=== PATIENT | female | born 1930 | race Caucasian/White ===

== ENCOUNTER 2016-09-29 21:52 | Inpatient (IN) ==
[2016-09-29] MEDS ORDERED: Ondansetron 4 MG/2 ML VIAL IVP ONE (21:58)
[2016-09-29] MEDS ORDERED: 0.9 % Sodium Chloride 1,000 ML IVC ONE ×2 (21:58→22:01)
--- NOTE | 2016-09-29 22:12 | Emergency Department Note ---
Disposition Clinical Impression: Elevated troponin, Gastroenteritis Disposition: Admitted As Inpatient Condition: Fair Time of Disposition: 01:48 Nausea/Vomiting/Diarrhea HPI - General Chief complaint: ED Nausea/Vomiting/Diarrhea Stated complaint: n/v/fever Time Seen by Provider: 09/29/16 21:58 Source: patient, EMS Mode of arrival: private vehicle Limitations: no limitations Nursing Notes Reviewed: Yes Vital Signs Reviewed: Yes - History of Present Illness HPI Narrative: A very pleasant 86-year-old female presents to the emergency department with complaint of nausea, vomiting, diarrhea, fever and generalized fatigue. Patient states that the symptoms have been progressively worsening over the last 24-36 hours. She denies any known sick contacts with similar symptoms. She denies any new foods or new medications. She does state that she has been having some fever and chills. Pt Subjective Complaint: nausea, vomiting, diarrhea, abdominal pain Onset (ago): day(s) (1) Description of emesis: food contents Description of Diarrhea: water Associated Abdominal Pain: Yes If pain, Location of pain: diffuse Severity: mild Consistency: intermittent Improves with: nothing Worsens with: nonthing Associated symptoms: Reports: fever/chills, loss of appetite, nausea/vomiting - Related Data Previous Rx's Medication Instructions Recorded Moxifloxacin HCl [Avelox] 400 mg PO DAILY #5 tablet 05/17/15 Allergies Allergy/AdvReac Type Severity Reaction Status Date / Time clindamycin Allergy Anaphylaxis Verified 05/06/15 12:15 Erythromycin Base Allergy Hives Verified 05/06/15 12:15 levofloxacin [From Levaquin] Allergy Anaphylaxis Verified 05/06/15 12:15 Methadone Allergy Anaphylaxis Verified 05/06/15 12:15 sulfamethoxazole Allergy Hives Verified 05/06/15 12:15 [From Bactrim] trimethoprim [From Bactrim] Allergy Hives Verified 05/06/15 12:15 adhesive tape AdvReac Blister Verified 05/06/15 12:15 azithromycin [From Zithromax] AdvReac Muscle Pain Verified 05/06/15 12:15 cephalexin [From Keflex] AdvReac Rash Verified 05/06/15 12:15 ciprofloxacin [From Cipro] AdvReac Hives Verified 05/06/15 12:15 latex AdvReac Blister Verified 05/06/15 12:15 nitrofurantoin AdvReac Vomiting Verified 05/06/15 12:15 [From Macrobid] All systems ED: reviewed and negative except as stated. Constitutional: Reports: fever, chills Cardiovascular: Denies: chest pain Respiratory: Denies: cough, dyspnea Gastrointestinal: Reports: abdominal pain, nausea, vomiting, diarrhea Musculoskeletal: Reports: myalgia. Denies: back pain, neck pain Neurological: Denies: headache Psychiatric: Denies: anxiety, depression, suicidal thoughts, homicidal thoughts Past Medical History - Past Medical History Attestation: Yes The following information was validated with the patient. Source: patient, nursing notes reviewed Medical history: Reports: arthritis, asthma, COPD, hypertension, osteoporosis Surgical history: Reports: hysterectomy Psychiatric history: Reports: anxiety, depression - Social History Smoking Status: Never smoker Smokeless Tobacco Status: No Alcohol use: Reports: none Drug use: Reports: none Physical Exam - General Limitations: no limitations General appearance: alert, in no apparent distress - Head Head exam: atraumatic, normocephalic, normal inspection - Eye Eye exam: Present: normal appearance, PERRL - Neck Neck exam: Present: normal inspection, full ROM, trachea midline - Chest Chest inspection: Present: normal inspection, symmetric chest wall rise - Respiratory Respiratory exam: Present: normal lung sounds bilaterally. Absent: respiratory distress - Cardiovascular Cardiovascular exam: Present: regular rate, normal rhythm, normal heart sounds - Abdominal Exam Abdominal exam: Present: soft, tenderness, normal bowel sounds. Absent: distention, guarding, rebound, rigidity, organomegaly, Garcia's sign, Rovsing's sign, tenderness at McBurney's Point Abdominal tenderness: Present: diffuse, mild - Extremities Exam Extremities exam: Present: normal inspection, full ROM. Absent: tenderness, pedal edema - Expanded Lower Extremity Exam Gait: observed and normal - Back Exam Back exam: Present: normal inspection - Neurological Exam Neurological exam: Present: alert, oriented X3 - Psychiatric Psychiatric exam: Present: normal affect, normal mood - Skin Skin exam: Present: warm, dry, intact, normal color Course - Reevaluation(s) Reevaluation #1: Patient asleep and resting comfortably on reexamination. Labs otherwise within normal limits except for an elevated troponin and mildly elevated creatinine. Kidney function is likely due to dehydration due to the patient's nausea, vomiting and diarrhea. There are no acute changes on the patient's EKG. Plan to discuss admission for serial troponins with the hospitalist. Patient denies any additional complaints or concerns at this time. Time: 01:47 Vital Signs Temperature 99.4 F 09/29/16 21:57 Pulse Rate 114 09/29/16 21:57 Respiratory Rate 16 09/29/16 21:57 Blood Pressure 201/99 09/29/16 21:57 O2 Sat by Pulse Oximetry 95 09/29/16 21:57 Temperature 98.2 F 09/30/16 02:18 Pulse Rate 101 09/30/16 00:54 Respiratory Rate 18 09/30/16 00:54 Blood Pressure 151/67 09/30/16 00:54 O2 Sat by Pulse Oximetry 95 09/30/16 00:54 Oxygen Delivery Oxygen Delivery Nasal Cannula Nausea/Vomiting/Diarrhea - Lab Data Lab results reviewed: Yes I reviewed the patient's lab results. Result diagrams: 09/29/16 22:10 09/29/16 22:10 Lab Results 09/29/16 09/29/16 09/29/16 Range/Units 22:10 22:10 22:10 WBC 12.1 H (4.3-11.1) K/mcL RBC 4.38 (3.82-4.97) M/mcL Hgb 11.8 (11.5-15.4) g/dL Hct 37.7 (35.3-44.9) % MCV 86.1 (83.0-100.0) fL MCH 26.9 L (28.0-33.3) pg MCHC 31.3 L (31.6-35.5) g/dL RDW 16.9 H (11.5-14.5) % Plt Count 190 (140-400) K/mcL MPV 10.9 (9.4-12.4) fL Immature Gran % 0.6 (0-4) % Seg Neutrophils % 91.5 % Lymphocytes % 5.5 % Monocytes % 1.7 % Eosinophils % 0.5 % Basophils % 0.2 % Neutrophils # 11.1 H (1.6-8.9) K/mcL Lymphocytes # 0.7 (0.6-4.6) K/mcL Monocytes # 0.2 (0.0-1.3) K/mcL Eosinophils # 0.1 (0.0-0.6) K/mcL Basophils # 0.0 (0.0-0.2) K/mcL Sodium 137 (136-145) mEq/L Potassium 3.7 (3.5-4.5) mEq/L Chloride 106 (98-109) mEq/L Carbon Dioxide 21 (19-29) mEq/L BUN 21 H (7-20) mg/dL Creatinine 1.10 (0.57-1.11) mg/dL Est GFR ( Amer) 57 L (> 60) Est GFR (Non-Af Amer) 47 L (> 60) BUN/Creatinine Ratio 19 (6-26) Glucose 117 H (70-99) mg/dL Calculated Osmolality 288 (280-300) Lactic Acid 1.8 (0.5-2.2) mmol/L Calcium 9.7 (8.6-10.8) mg/dL Total Bilirubin 1.3 H D (0.2-1.2) mg/dL AST 18 (5-34) Units/L ALT 15 (0-55) Units/L Alkaline Phosphatase 196 H (38-126) Units/L Troponin I (0-0.03) ng/mL Serum Total Protein 7.5 (6.0-8.3) g/dL Albumin 3.3 L (3.5-5.0) g/dL Globulin 4.2 H (2.4-3.5) g/dL Albumin/Globulin Ratio 0.8 L (1.1-2.2) Amylase 23 L (25-125) Units/L Lipase 14 (8-78) Units/L Urine Color (Yellow) Urine Clarity (Clear) Urine pH (5.0-8.0) pH Units Ur Specific [place] (1.010-1.025) Urine Protein (Neg-Trace) mg/dL Urine Glucose (UA) (Normal) mg/dL Urine Ketones (Negative) mg/dL Urine Blood (Negative) Urine Nitrite (Negative) Urine Bilirubin (Negative) Urine Urobilinogen (Normal) mg/dL Ur Leukocyte Esterase (Negative) Urine Microscopic RBC (0-3) per hpf Urine Microscopic WBC (0-3) per hpf Ur Squamous Epith Cells (None-Few) per lpf Urine Bacteria (None-Few) per hpf Hyaline Casts (None-Few) per lpf Urine Yeast Ur Culture Indicated? (NO) 09/29/16 09/29/16 Range/Units 22:10 22:30 WBC (4.3-11.1) K/mcL RBC (3.82-4.97) M/mcL Hgb (11.5-15.4) g/dL Hct (35.3-44.9) % MCV (83.0-100.0) fL MCH (28.0-33.3) pg MCHC (31.6-35.5) g/dL RDW (11.5-14.5) % Plt Count (140-400) K/mcL MPV (9.4-12.4) fL Immature Gran % (0-4) % Seg Neutrophils % % Lymphocytes % % Monocytes % % Eosinophils % % Basophils % % Neutrophils # (1.6-8.9) K/mcL Lymphocytes # (0.6-4.6) K/mcL Monocytes # (0.0-1.3) K/mcL Eosinophils # (0.0-0.6) K/mcL Basophils # (0.0-0.2) K/mcL Sodium (136-145) mEq/L Potassium (3.5-4.5) mEq/L Chloride (98-109) mEq/L Carbon Dioxide (19-29) mEq/L BUN (7-20) mg/dL Creatinine (0.57-1.11) mg/dL Est GFR ( Amer) (> 60) Est GFR (Non-Af Amer) (> 60) BUN/Creatinine Ratio (6-26) Glucose (70-99) mg/dL Calculated Osmolality (280-300) Lactic Acid (0.5-2.2) mmol/L Calcium (8.6-10.8) mg/dL Total Bilirubin (0.2-1.2) mg/dL AST (5-34) Units/L ALT (0-55) Units/L Alkaline Phosphatase (38-126) Units/L Troponin I 0.12 H* (0-0.03) ng/mL Serum Total Protein (6.0-8.3) g/dL Albumin (3.5-5.0) g/dL Globulin (2.4-3.5) g/dL Albumin/Globulin Ratio (1.1-2.2) Amylase (25-125) Units/L Lipase (8-78) Units/L Urine Color Yellow (Yellow) Urine Clarity Cloudy A (Clear) Urine pH 7.0 (5.0-8.0) pH Units Ur Specific [place] 1.015 (1.010-1.025) Urine Protein 30 H (Neg-Trace) mg/dL Urine Glucose (UA) Normal (Normal) mg/dL Urine Ketones Negative (Negative) mg/dL Urine Blood Moderate H (Negative) Urine Nitrite Positive A (Negative) Urine Bilirubin Negative (Negative) Urine Urobilinogen Normal (Normal) mg/dL Ur Leukocyte Esterase Large H (Negative) Urine Microscopic RBC 3-5 H (0-3) per hpf Urine Microscopic WBC TNTC H (0-3) per hpf Ur Squamous Epith Cells Moderate H (None-Few) per lpf Urine Bacteria Many H (None-Few) per hpf Hyaline Casts None Seen (None-Few) per lpf Urine Yeast Test Not Performed Ur Culture Indicated? YES A (NO) - Radiology Data Radiology results reviewed: Yes I reviewed the patient's radiology results. - EKG Data EKG attestation: Yes I reviewed and interpreted this EKG. EKG shows normal: sinus rhythm Rate: normal Rhythm: NSR [place]/QRS: normal Interpretation: no acute changes, normal EKG, unchanged when compared to prior tracing (date) Attestation Statement - Attestation Attestation: I, William Rocha MD, personally performed a history and physical exam of the patient and discussed their management with the midlevel provicer, [employer]. I reviewed the midlevel provider's note and agree with the documented findings, medical decision making, and plan of care. 86-year-old female who presents to the emergency department complaining of nausea and vomiting and diarrhea which started yesterday. She denies any abdominal pain. No fever. She states that initially the vomiting was food and then discharge to stomach fluid and bile. Today she states it has been dark brown but no gross loud in it. No melena or hematochezia. She denies any chest pain or shortness of breath. No palpitations. On examination patient is a well-developed well-nourished elderly female in no acute distress. She is alert and oriented 3. There is no cyanosis or diaphoresis. Breath sounds are clear and equal bilaterally. Heart regular rate and rhythm. Abdomen is soft and nontender with decreased bowel sounds. No tympany or distention. No guarding or rebound. Labs reviewed. Patient noted to have an elevated troponin of 0.12. Positive urinary tract infection. No acute changes on EKG. Chest x-ray showed a left lung base opacity suspicious for pneumonia or partial atelectasis. CT of the abdomen and pelvis showed some bibasilar atelectasis in the lungs. No acute abnormality in the abdomen. Diverticulosis with no evidence for diverticulitis. The hospitalist, Dr. Schreiber, was consulted and accepted admission of the patient.
[2016-09-29 22:25] LABS: Basophils % 0.2 %; Eosinophils # 0.1 K/mcL (0.0-0.6); Eosinophils % 0.5 %; Hematocrit 37.7 % (35.3-44.9); Hemoglobin 11.8 g/dL (11.5-15.4); Immature Granulocytes % 0.6 % (0-4); Lymphocytes # 0.7 K/mcL (0.6-4.6); Lymphocytes % 5.5 %; Mean Corpuscular HGB Conc 31.3 g/dL (31.6-35.5); Mean Corpuscular Hemoglobin 26.9 pg (28.0-33.3); Mean Corpuscular Volume 86.1 fL (83.0-100.0); Mean Platelet Volume 10.9 fL (9.4-12.4); Monocytes # 0.2 K/mcL (0.0-1.3); Monocytes % 1.7 %; Neutrophils # 11.1 K/mcL (1.6-8.9); Platelet Count 190 K/mcL (140-400); Red Blood Count 4.38 M/mcL (3.82-4.97); Red Cell Distribution Width 16.9 % (11.5-14.5); Segmented Neutrophils % 91.5 %
[2016-09-29 22:41] LABS: Albumin 3.3 g/dL (3.5-5.0); Albumin/Globulin Ratio 0.8 (1.1-2.2); Calcium 9.7 mg/dL (8.6-10.8); Globulin 4.2 g/dL (2.4-3.5); Potassium 3.7 mEq/L (3.5-4.5); Total Protein 7.5 g/dL (6.0-8.3)
[2016-09-29 22:42] LABS: Bilirubin,Total 1.3 mg/dL (0.2-1.2)
[2016-09-29 22:46] LABS: Bilirubin,Urine Negative (Negative); Blood,Urine Moderate (Negative); Clarity,Urine Cloudy (Clear); Color,Urine Yellow (Yellow); Glucose,Urine (UA) Normal (Normal); Ketones,Urine Negative (Negative); Leukocyte Esterase,Urine Large (Negative); Nitrite,Urine Positive (Negative); Protein,Urine 30 mg/dL (Neg-Trace); Specific Gravity,Urine 1.015 (1.010-1.025); Urobilinogen,Urine Normal (Normal)
[2016-09-29 22:49] LABS: Bacteria,Urine Many per hpf (None-Few); Hyaline Casts,Urine None Seen per lpf (None-Few); Squamous Epithelial Cell,Urine Moderate per lpf (None-Few); WBC,Urine TNTC per hpf (0-3)
[2016-09-30] MEDS ORDERED: *HR* Morphine 2 MG/ML SYRINGE IVP PRN (02:56)
[2016-09-30] MEDS ORDERED: Naloxone 0.4 MG/ML INJ IVP PRN (02:56)
[2016-09-30] MEDS ORDERED: Scopolamine Patch 1.5 MG PATCH.TD72 TD ONE (02:56)
--- NOTE | 2016-09-30 03:13 | Internal Med History&Physical ---
Date of Encounter: 09/30/16 Time of Encounter: 03:00 Assessment and Plan (1) Intractable nausea and vomiting Status: Resolved . Qualifiers: Vomiting type: cyclical vomiting Qualified Code(s): G43.A1 - Cyclical vomiting, intractable (2) Acute diarrhea Status: Acute . (3) Abdominal pain of multiple sites Status: Acute . (4) UTI (urinary tract infection) Status: Acute . Qualifiers: Urinary tract infection type: acute cystitis Hematuria presence: without hematuria Qualified Code(s): N30.00 - Acute cystitis without hematuria (5) Elevated troponin I measurement Status: Acute . (6) Acute gastroenteritis Status: Acute . (7) LLL pneumonia Status: Ruled-out . Qualifiers: Pneumonia type: due to unspecified organism Qualified Code(s): J18.1 - Lobar pneumonia, unspecified organism (8) SIRS due to infectious process with organ dysfunction Status: Acute . (9) Sepsis Status: Acute . Qualifiers: Sepsis type: Escherichia coli Qualified Code(s): A41.51 - Sepsis due to Escherichia coli [E. coli] (10) Accelerated hypertension Status: Acute . (11) Neutrophilic leukocytosis Status: Acute . (12) Demand ischemia of myocardium Status: Acute . (13) Ischemia due to increased oxygen demand Status: Acute . (14) Frail elderly Status: Chronic . (15) At risk for abnormal gastrointestinal motility Status: Chronic . (16) At risk for abuse of opiates Status: Chronic . (17) At risk for accident in home Status: Chronic . (18) At risk for acid-base imbalance Status: Acute . (19) At risk for activity intolerance Status: Chronic . (20) At risk for acute confusion Status: Acute . (21) At risk for acute ischemic cardiac event Status: Acute . (22) At risk for adverse drug event Status: Chronic . Internal Medicine - H&P: HPI Chief complaint: Abdominal pain nausea vomiting diarrhea fever Admitted From: Emergency Dept Plans for Post Hospital Care: Home History of present illness: Ms. Jones is a 86 year old female with medical history significant for COPD, YONNY, osteoarthritis, osteoporosis, gouty arthropathy, DDD/DJD of the spine , failed back surgery/post laminectomy syndrome, chronic pain syndrome/persona , hypertension, dyslipidemia, major depression and anxiety, GERD, hypothyroidism , peripheral neuropathy, chronic headaches/occipital neuralgia, fibromyalgia, irritable bowel syndrome with diarrhea, nonsmoker. Patient is admitted with complaints of abdominal pain associated with nausea vomiting and diarrhea. Initial screening studies reveal an CT abdomen and pelvis bibasilar atelectasis. Diverticulosis without acute evidence of diverticulitis. No acute intra-abdominal pathology. Chest x-ray revealed left lung base opacity suspicious for pneumonia versus atelectasis. She reported that her symptoms progressively worsened over 24-36 hour period. Acknowledged some feverishness and chills denied any sick contacts. Vital signs revealed a temperature of 99.4 with a pulse of 100-114 respiration 16-18 BP 151-201/67-99 O2 saturation 95 % on 2 L per nasal cannula. Systemic inflammatory response syndrome criteria and met at the time of admission. Sepsis criteria and met with source of infection likely pulmonary and urinary tract. Demand ischemia of myocardium with a troponin elevation of 0.12 noted. Analysis was strongly consistent with acute on chronic urinary tract infection with white blood cells too numerous to count and many bacteria. EKG normal sinus rhythm with no acute ischemic changes. Metabolic panel noted acute kidney injury stage III with modest metabolic electrolyte derangements. Patient is admitted at this time to undergo further evaluation and disposition. Past Med Surg Social Fam HX - Past Medical History Source: old records reviewed Medical history: arthritis (Osteoarthritis. DDD/DJD cervical spine. DDD/DJD lumbar spine. Postlaminectomy syndrome, lumbar. Lumbar spondylosis. Occipital neuralgia.), asthma, cancer (History of skin cancer. History of squamous cell carcinoma of the skin.), COPD (YONNY. Chronic sinusitis.), fibromyalgia, GERD, GI bleed (Irritable bowel syndrome with diarrhea. Diverticulosis coli.), hypertension, osteoporosis, renal disease (History of MRSA vaginitis. History of endometriosis.), thyroid disease (Hyperthyroidism.) , other (Hyperuricemia. Gout. Steroid responsive dermatitis. Tinea shon. Chronic pain syndrome. Peripheral neuropathy.) Psychiatric history: anxiety, depression, other - Past Surgical History Surgical History: cancer surgery (Parathyroid adenoma resection. Excision of squamous cell carcinoma of the skin.), hysterectomy, knee replacement (Left and right knee replacements.), orthopedic, other (C3 C4 C4 C5 C5 C6 nerve root radiofrequency ablation procedures.), sinus surgery, STEPH/BSO, other (Back surgery, call and lumbar. Colonoscopy-polypectomy. EGD. Implanted nerve stimulator trial.), arthroscopy (Left and right knee arthroscopic surgery.) - Social History Smoking Status: Never smoker Smokeless Tobacco Status: No Alcohol use: none Drug use: none Occupational status: retired Current living situation: Home, With Family Activity Level: Independent ambulation, Mostly sedentary Recent Out of Country Travel Within the Last 8 Weeks: No Exposure or Possible Exposure to Illness During Travel: No Internal Medicine - H&P: Meds Albuterol Sulfate [Ventolin Hfa] 2 puff IH Q4H PRN 09/30/16 [History] Allopurinol [Zyloprim] 300 mg PO DAILY 09/30/16 [History] Alprazolam [Xanax 0.25 MG Tablet] 0.25 mg PO HS 09/30/16 [History] Amitriptyline [Elavil] 25 mg PO HS 09/30/16 [History] Budesonide/Formoterol 160/4.5 [Symbicort 160/4.5] 2 puff IH BIDR 09/30/16 [ History] Carvedilol [Coreg] 3.125 mg PO BIDWM 09/30/16 [History] Cetirizine HCl [Zyrtec] 10 mg PO DAILY 09/30/16 [History] Escitalopram [Lexapro] 20 mg PO DAILY 09/30/16 [History] FluocinoNIDE 0.05% CRM [Lidex] 1 appl TP BID 09/30/16 [History] Fluticasone Propionate Nasal [Flonase] 100 mcg NS DAILY 09/30/16 [History] Gabapentin [Neurontin] 800 mg PO TID 09/30/16 [History] HYDROcodone/Acet 10/325 mg [[place] 10-325 mg] 1 tab PO BID PRN 09/30/16 [History] Lisinopril 30 mg PO DAILY 09/30/16 [History] Methimazole 30 mg PO DAILY 09/30/16 [History] Mv-Mn/FA/Vit K1/Lycop/Lut/Zeax [Ocuvite Eye + Multi Tablet] 1 tab PO DAILY 09/30 [History] Nystatin [Nystatin Suspension] 5 ml PO QID 09/30/16 [History] Omeprazole [PriLOSEC] 40 mg PO DAILY 09/30/16 [History] Amoxicillin/Clavulanate [Augmentin] 875 mg PO BIDWM #21 tablet 10/04/16 [Rx] Lactobacillus [Culturelle] 1 each PO BID cap.sprink 10/04/16 [Rx] Allergies adhesive tape Allergy (Verified 09/30/16 10:57) Hives cephalexin [From Keflex] Allergy (Verified 09/30/16 10:57) Hives ciprofloxacin [From Cipro] Allergy (Verified 09/30/16 10:57) Hives clindamycin Allergy (Verified 05/06/15 12:15) Anaphylaxis Erythromycin Base Allergy (Verified 05/06/15 12:15) Hives latex Allergy (Verified 09/30/16 10:57) Hives levofloxacin [From Levaquin] Allergy (Verified 05/06/15 12:15) Anaphylaxis Methadone Allergy (Verified 05/06/15 12:15) Anaphylaxis sulfamethoxazole [From Bactrim] Allergy (Verified 05/06/15 12:15) Hives trimethoprim [From Bactrim] Allergy (Verified 05/06/15 12:15) Hives azithromycin [From Zithromax] Adverse Reaction (Verified 09/30/16 10:57) Gastrointestinal Upset nitrofurantoin [From Macrobid] Adverse Reaction (Verified 05/06/15 12:15) Vomiting All Systems PM: A 10-system review of systems was performed and is negative for pertinent findings except as documented above in the HPI. - Constitutional Constitutional: as per HPI, anorexia, chills, fatigue, fever(s), malaise, weakness, other, no night sweats - EENT Eyes: as per HPI, no change in vision, no discharge, no pain, no photophobia Ears: as per HPI, no ear discharge, no ear pain, no tinnitus Nose, mouth and throat: as per HPI, nasal congestion, post-nasal drip, no dysphagia, no nasal discharge, no neck pain, no sore throat - Cardiovascular Cardiovascular ROS IM: as per HPI, no chest pain, no diaphoresis, no dyspnea, no lightheadedness, no palpitations, no syncope - Respiratory Respiratory: as per HPI, dyspnea, dyspnea on exertion, chest congestion, other, no cough, no wheezing, no excessive phlegm production - Gastrointestinal Gastrointestinal: as per HPI, abdominal pain, bloating, cramping, diarrhea, early satiety, loose stools, nausea, vomiting, no hematemesis, no hematochezia, no melena - Genitourinary Genitourinary: as per HPI, no change in urinary stream, no dysuria, no flank pain, no hematuria Menstruation: as per HPI, post hysterectomy - Musculoskeletal Musculoskeletal ROS IM: as per HPI, arthralgias, myalgias, no numbness, no tingling - Integumentary Integumentary IM: as per HPI, no rash, no unusual bruising - Neurological Neurological ROS: as per HPI, other, no confusion, no convulsions, no focal weakness, no numbness, no tingling, no tremor(s) - Psychiatric Psychiatric: as per HPI - Endocrine Endocrine IM: as per HPI, fatigue, other - Hematologic/Lymphatic Hematologic/Lymphatic: as per HPI, no easy bruising - Allergic/Immunologic Allergic/Immunologic: as per HPI - Constitutional Vitals: Temp Pulse Resp BP Pulse Ox 98.2 F 101 0 0/0 95 09/30/16 02:18 09/30/16 00:54 09/30/16 02:56 09/30/16 02:56 09/30/16 00:54 Vital Signs Temp Pulse Resp BP Pulse Ox 09/30/16 02:56 0 0/0 09/30/16 02:18 98.2 F 09/30/16 00:54 101 18 151/67 95 09/30/16 00:00 108 18 152/64 96 09/29/16 21:57 99.4 F 114 16 201/99 95 Intake and Output 09/29/16 09/29/16 09/30/16 15:59 23:59 07:59 Intake Total 1000 / 1000 Balance 1000 / 1000 Intake: IV Fluids 1000 / 1000 0.9 % Sodium Chloride 1, 1000 / 1000 000 ML @ 3750 mls/hr IVC .Q16M ONE Rx#:[id number] Other: Weight 70.307 kg Allergies Allergy/AdvReac Type Severity Reaction Status Date / Time clindamycin Allergy Anaphylaxis Verified 05/06/15 12:15 Erythromycin Base Allergy Hives Verified 05/06/15 12:15 levofloxacin [From Levaquin] Allergy Anaphylaxis Verified 05/06/15 12:15 Methadone Allergy Anaphylaxis Verified 05/06/15 12:15 sulfamethoxazole Allergy Hives Verified 05/06/15 12:15 [From Bactrim] trimethoprim [From Bactrim] Allergy Hives Verified 05/06/15 12:15 adhesive tape AdvReac Blister Verified 05/06/15 12:15 azithromycin [From Zithromax] AdvReac Muscle Pain Verified 05/06/15 12:15 cephalexin [From Keflex] AdvReac Rash Verified 05/06/15 12:15 ciprofloxacin [From Cipro] AdvReac Hives Verified 05/06/15 12:15 latex AdvReac Blister Verified 05/06/15 12:15 nitrofurantoin AdvReac Vomiting Verified 05/06/15 12:15 [From Macrobid] General appearance: Present: mild distress, A&O X 3, obese, answers questions appropriately - Head Head exam: Present: atraumatic, normocephalic - Eye Eye exam: Present: EOMI, PERRL, conjuntiva pink, sclera anicteric Pupils: Present: PERRL - ENT ENT exam: Present: mucous membranes moist, normal oropharynx - Neck Neck exam general surgery: Present: supple, trachea midline. Absent: lymphadenopathy - Respiratory Respiratory exam: Present: chest wall tenderness, decreased breath sounds, wheezes. Absent: accessory muscle use, CTAB, rales, rhonchi - Cardiovascular Cardiovascular exam: Present: distant heart sounds, RRR, +S1, +S2. Absent: diastolic murmur, gallop, rubs, systolic murmur - GI/Abdominal GI/Abdominal exam: Present: normal bowel sounds, soft, no peritoneal signs. Absent: distended, tenderness - Extremities Exam Extremities exam: Present: warm, radial pulses palpable and symetrical. Absent : calf tenderness, cyanotic, pedal edema - Neurological Exam Neurological exam: Present: alert, altered, CN II-XII intact, oriented X3, no focal deficits. Absent: pronater drift, facial droop, speech deficit - Psychiatric Psychiatric exam: Present: normal affect, normal mood - Skin Skin exam: Present: dry, intact Internal Med - H&P Results - Labs CBC & Chem 7: 10/03/16 12:42 10/03/16 12:42 Labs: Short CBC 09/29/16 Range/Units 22:10 WBC 12.1 H (4.3-11.1) K/mcL Hgb 11.8 (11.5-15.4) g/dL Hct 37.7 (35.3-44.9) % Plt Count 190 (140-400) K/mcL Neutrophils # 11.1 H (1.6-8.9) K/mcL BMP 09/29/16 Range/Units 22:10 Sodium 137 (136-145) mEq/L Potassium 3.7 (3.5-4.5) mEq/L Chloride 106 (98-109) mEq/L Carbon Dioxide 21 (19-29) mEq/L BUN 21 H (7-20) mg/dL Creatinine 1.10 (0.57-1.11) mg/dL Glucose 117 H (70-99) mg/dL Calcium 9.7 (8.6-10.8) mg/dL Cardiac Enzymes 09/29/16 Range/Units 22:10 Troponin I 0.12 H* (0-0.03) ng/mL Liver Function 09/29/16 Range/Units 22:10 Total Bilirubin 1.3 H D (0.2-1.2) mg/dL AST 18 (5-34) Units/L ALT 15 (0-55) Units/L Alkaline Phosphatase 196 H (38-126) Units/L Albumin 3.3 L (3.5-5.0) g/dL Urine 09/29/16 Range/Units 22:30 Urine Color Yellow (Yellow) Urine Clarity Cloudy A (Clear) Urine pH 7.0 (5.0-8.0) pH Units Ur Specific [place] 1.015 (1.010-1.025) Urine Protein 30 H (Neg-Trace) mg/dL Urine Glucose (UA) Normal (Normal) mg/dL Abnormal lab results WBC 12.1 K/mcL (4.3-11.1) H 09/29/16 22:10 MCH 26.9 pg (28.0-33.3) L 09/29/16 22:10 MCHC 31.3 g/dL (31.6-35.5) L 09/29/16 22:10 RDW 16.9 % (11.5-14.5) H 09/29/16 22:10 Neutrophils # 11.1 K/mcL (1.6-8.9) H 09/29/16 22:10 BUN 21 mg/dL (7-20) H 09/29/16 22:10 Est GFR ( Amer) 57 (> 60) L 09/29/16 22:10 Est GFR (Non-Af Amer) 47 (> 60) L 09/29/16 22:10 Glucose 117 mg/dL (70-99) H 09/29/16 22:10 Total Bilirubin 1.3 mg/dL (0.2-1.2) H D 09/29/16 22:10 Alkaline Phosphatase 196 Units/L (38-126) H 09/29/16 22:10 Troponin I 0.12 ng/mL (0-0.03) H* 09/29/16 22:10 Albumin 3.3 g/dL (3.5-5.0) L 09/29/16 22:10 Globulin 4.2 g/dL (2.4-3.5) H 09/29/16 22:10 Albumin/Globulin Ratio 0.8 (1.1-2.2) L 09/29/16 22:10 Amylase 23 Units/L (25-125) L 09/29/16 22:10 Urine Clarity Cloudy (Clear) A 09/29/16 22:30 Urine Protein 30 mg/dL (Neg-Trace) H 09/29/16 22:30 Urine Blood Moderate (Negative) H 09/29/16 22:30 Urine Nitrite Positive (Negative) A 09/29/16 22:30 Ur Leukocyte Esterase Large (Negative) H 09/29/16 22:30 Urine Microscopic RBC 3-5 per hpf (0-3) H 09/29/16 22:30 Urine Microscopic WBC TNTC per hpf (0-3) H 09/29/16 22:30 Ur Squamous Epith Cells Moderate per lpf (None-Few) H 09/29/16 22:30 Urine Bacteria Many per hpf (None-Few) H 09/29/16 22:30 Ur Culture Indicated? YES (NO) A 09/29/16 22:30 Laboratory Results WBC 12.1 K/mcL (4.3-11.1) H 09/29/16 22:10 RBC 4.38 M/mcL (3.82-4.97) 09/29/16 22:10 Hgb 11.8 g/dL (11.5-15.4) 09/29/16 22:10 Hct 37.7 % (35.3-44.9) 09/29/16 22:10 MCV 86.1 fL (83.0-100.0) 09/29/16 22:10 MCH 26.9 pg (28.0-33.3) L 09/29/16 22:10 MCHC 31.3 g/dL (31.6-35.5) L 09/29/16 22:10 RDW 16.9 % (11.5-14.5) H 09/29/16 22:10 Plt Count 190 K/mcL (140-400) 09/29/16 22:10 MPV 10.9 fL (9.4-12.4) 09/29/16 22:10 Immature Gran % 0.6 % (0-4) 09/29/16 22:10 Seg Neutrophils % 91.5 % 09/29/16 22:10 Lymphocytes % 5.5 % 09/29/16 22:10 Monocytes % 1.7 % 09/29/16 22:10 Eosinophils % 0.5 % 09/29/16 22:10 Basophils % 0.2 % 09/29/16 22:10 Neutrophils # 11.1 K/mcL (1.6-8.9) H 09/29/16 22:10 Lymphocytes # 0.7 K/mcL (0.6-4.6) 09/29/16 22:10 Monocytes # 0.2 K/mcL (0.0-1.3) 09/29/16 22:10 Eosinophils # 0.1 K/mcL (0.0-0.6) 09/29/16 22:10 Basophils # 0.0 K/mcL (0.0-0.2) 09/29/16 22:10 Sodium 137 mEq/L (136-145) 09/29/16 22:10 Potassium 3.7 mEq/L (3.5-4.5) 09/29/16 22:10 Chloride 106 mEq/L (98-109) 09/29/16 22:10 Carbon Dioxide 21 mEq/L (19-29) 09/29/16 22:10 BUN 21 mg/dL (7-20) H 09/29/16 22:10 Creatinine 1.10 mg/dL (0.57-1.11) 09/29/16 22:10 Est GFR ( Amer) 57 (> 60) L 09/29/16 22:10 Est GFR (Non-Af Amer) 47 (> 60) L 09/29/16 22:10 BUN/Creatinine Ratio 19 (6-26) 09/29/16 22:10 Glucose 117 mg/dL (70-99) H 09/29/16 22:10 Calculated Osmolality 288 (280-300) 09/29/16 22:10 Lactic Acid 1.8 mmol/L (0.5-2.2) 09/29/16 22:10 Calcium 9.7 mg/dL (8.6-10.8) 09/29/16 22:10 Total Bilirubin 1.3 mg/dL (0.2-1.2) H D 09/29/16 22:10 AST 18 Units/L (5-34) 09/29/16 22:10 ALT 15 Units/L (0-55) 09/29/16 22:10 Alkaline Phosphatase 196 Units/L (38-126) H 09/29/16 22:10 Troponin I 0.12 ng/mL (0-0.03) H* 09/29/16 22:10 Serum Total Protein 7.5 g/dL (6.0-8.3) 09/29/16 22:10 Albumin 3.3 g/dL (3.5-5.0) L 09/29/16 22:10 Globulin 4.2 g/dL (2.4-3.5) H 09/29/16 22:10 Albumin/Globulin Ratio 0.8 (1.1-2.2) L 09/29/16 22:10 Amylase 23 Units/L (25-125) L 09/29/16 22:10 Lipase 14 Units/L (8-78) 09/29/16 22:10 Urine Color Yellow (Yellow) 09/29/16 22:30 Urine Clarity Cloudy (Clear) A 09/29/16 22:30 Urine pH 7.0 pH Units (5.0-8.0) 09/29/16 22:30 Ur Specific [place] 1.015 (1.010-1.025) 09/29/16 22:30 Urine Protein 30 mg/dL (Neg-Trace) H 09/29/16 22:30 Urine Glucose (UA) Normal mg/dL (Normal) 09/29/16 22:30 Urine Ketones Negative mg/dL (Negative) 09/29/16 22:30 Urine Blood Moderate (Negative) H 09/29/16 22:30 Urine Nitrite Positive (Negative) A 09/29/16 22:30 Urine Bilirubin Negative (Negative) 09/29/16 22:30 Urine Urobilinogen Normal mg/dL (Normal) 09/29/16 22:30 Ur Leukocyte Esterase Large (Negative) H 09/29/16 22:30 Urine Microscopic RBC 3-5 per hpf (0-3) H 09/29/16 22:30 Urine Microscopic WBC TNTC per hpf (0-3) H 09/29/16 22:30 Ur Squamous Epith Cells Moderate per lpf (None-Few) H 09/29/16 22:30 Urine Bacteria Many per hpf (None-Few) H 09/29/16 22:30 Hyaline Casts None Seen per lpf (None-Few) 09/29/16 22:30 Urine Yeast Test Not Performed 09/29/16 22:30 Ur Culture Indicated? YES (NO) A 09/29/16 22:30 Impressions Abdomen/Pelvis CT 09/29/16 21:59 IMPRESSION: Diverticulosis without scan evidence for diverticulitis or other acute process. D/ / Serjio Salmeron MD / Serjio Salmeron MD Interpreting Provider: Serjio Salmeron MD Chest X-Ray 09/29/16 22:01 IMPRESSION: Left lung base opacity suspicious for mild pneumonia or partial atelectasis. D/ / 09/29/2016 23:44:53 Maximo Porter MD / rasheed Interpreting Provider: Maximo Porter MD - Attending Attestation My signature below is to certify that this patient is under my care and that I, or nurse practitioner, or a physician's personal assistant, or Resident Physician working with me, has had a [id number] encounter with this patient. Allergies clindamycin Allergy (Verified 05/06/15 12:15) Anaphylaxis Erythromycin Base Allergy (Verified 05/06/15 12:15) Hives levofloxacin [From Levaquin] Allergy (Verified 05/06/15 12:15) Anaphylaxis Methadone Allergy (Verified 05/06/15 12:15) Anaphylaxis sulfamethoxazole [From Bactrim] Allergy (Verified 05/06/15 12:15) Hives trimethoprim [From Bactrim] Allergy (Verified 05/06/15 12:15) Hives adhesive tape Adverse Reaction (Verified 05/06/15 12:15) Blister azithromycin [From Zithromax] Adverse Reaction (Verified 05/06/15 12:15) Muscle Pain cephalexin [From Keflex] Adverse Reaction (Verified 05/06/15 12:15) Rash ciprofloxacin [From Cipro] Adverse Reaction (Verified 05/06/15 12:15) Hives latex Adverse Reaction (Verified 05/06/15 12:15) Blister nitrofurantoin [From Macrobid] Adverse Reaction (Verified 05/06/15 12:15) Vomiting I & O 09/27/16 09/28/16 09/29/16 09/30/16 23:59 23:59 23:59 23:59 Intake Total 1000 / 1000 Balance 1000 / 1000 Weight 70.307 kg Intake: IV Fluids 1000 / 1000 0.9 % Sodium Chloride 1, 1000 / 1000 000 ML @ 3750 mls/hr IVC .Q16M ONE Rx#:[id number] Medications Acetaminophen (Tylenol) 650 mg PO Q6HR PRN PRN Reason: Mild Pain (1-3) Stop: 04/01/17 02:57 Docusate Sodium (Colace) 100 mg PO BID PRN PRN Reason: Constipation Stop: 04/01/17 02:57 Sodium Chloride (0.9 % Sodium Chloride) 1,000 mls @ 75 mls/hr IVC .[id number] ISIDRA Stop: 04/01/17 03:01 Piperacillin Sod/Tazobactam (Sod 3.375 gm/ Dextrose) 100 mls @ 25 mls/hr IVPB Q8HR ISIDRA PRN Reason: Protocol Stop: 04/01/17 03:09 Metoclopramide HCl (Reglan) 5 mg IVP Q6HR [facility] Stop: 10/01/16 00:01 Morphine Sulfate (Morphine Sulfate) 2 mg IVP Q4HR PRN PRN Reason: Severe Pain (7-10) Stop: 04/01/17 02:57 Naloxone HCl (Narcan) 0.4 mg IVP Q2MIN PRN PRN Reason: Opioid Reversal Stop: 04/01/17 02:57 Ondansetron HCl (Zofran) 4 mg IVP Q8HR PRN PRN Reason: Nausea And Vomiting Stop: 04/01/17 02:57 Oxycodone HCl (Roxicodone) 5 mg PO Q6HR PRN PRN Reason: Moderate Pain (4-6) Stop: 04/01/17 02:57 Pantoprazole Sodium (Protonix) 40 mg IVP DAILY ISIDRA Stop: 04/01/17 09:01 Discontinued Medications Acetaminophen (Tylenol) 1,000 mg PO ONCE ONE Stop: 09/29/16 22:02 Last Admin: 09/29/16 23:04 Dose: 1,000 mg Sodium Chloride (0.9 % Sodium Chloride) 1,000 mls @ 3,750 mls/hr IVC .Q16M ONE Stop: 09/29/16 22:13 Last Infusion: 09/30/16 00:56 Dose: 0 mls/hr Sodium Chloride (0.9 % Sodium Chloride) 1,000 mls @ 3,750 mls/hr IVC .Q16M ONE Stop: 09/29/16 22:16 Last Admin: 09/30/16 01:10 Dose: Piperacillin Sod/Tazobactam (Sod 3.375 gm/ Dextrose) 100 mls @ 25 mls/hr IVPB Q8HR ISIDRA PRN Reason: Protocol Stop: 04/01/17 08:01 Ondansetron HCl (Zofran) 4 mg IVP ONCE ONE Stop: 09/29/16 21:59 Last Admin: 09/29/16 23:04 Dose: 4 mg Scopolamine (Transderm-Scop) 1.5 mg TD ONCE ONE Stop: 09/30/16 02:57 Microbiology Results 09/29/16 22:10 Nasopharyngeal Influenza Types A,B Antigen (SHOBHA) - Final Nursing Notes 09/30/16 02:58 Nurse Note by Cecilia King pts [facility] phone number [phone] Initialized on 09/30/16 02:58 - END OF NOTE 09/30/16 02:17 Nurse Note by Cecilia King Pt stated to this RN that she is a DNR-CC Initialized on 09/30/16 02:17 - END OF NOTE Orders 09/29/16 21:58 Cardiac monitoring [RC] .ONCE Saline lock [RC] .ONCE Vital Signs Assessment [RC] PROTOCOL 0.9 % Sodium Chloride 1,000 ml IVC 3,750 mls/hr Ondansetron [Zofran] 4 mg IVP ONCE ONE 09/29/16 21:59 CT abd pelvis wo no iv no oral [CT] Stat Mode Of Transportation: Ambulatory Quantity: 1 Reason For Exam: abd pain, nausea, vomiting, diarrhea Exam Performed At:: [facility] Allergic to Contrast: No 09/29/16 22:01 12 lead ECG assessment [RC] NOW Obtain Old EKG [RC] .ONCE Portable CXR [XR chest 1V portable] [XR] Stat Mode Of Transportation: Ambulatory Reason For Exam: ZENY Order Doctor: Richard Whitney Exam Performed At:: [facility] 0.9 % Sodium Chloride 1,000 ml IVC 3,750 mls/hr Acetaminophen [Tylenol] 1,000 mg PO ONCE ONE ECG 12 lead ECG [ECG] Stat Mode Of Transportation: Ambulatory Reason For Exam: NVD Exam Performed At:: [facility] 09/29/16 22:10 Amylase Stat Comment: Specimen: Send someone from the department to collect Complete Blood Count [HEME] Stat Comment: Specimen: Send someone from the department to collect Comprehensive Metabolic Panel Stat Culture,Blood [BC] Stat Comment: SHOBHA Source: Peripheral Venipuncture Quantity: 1 Specimen: Send someone from the department to collect Specimen Description: Influenza A/B Antigen [VIR] Stat Comment: SHOBHA Source: Nasopharyngeal Specimen: Send someone from the department to collect Specimen Description: Lactic Acid ([facility] Only) Stat Comment: Specimen: Send someone from the department to collect Lipase Stat Troponin I Stat Comment: Specimen: Send someone from the department to collect 09/29/16 22:30 Culture,Urine [RM] Stat SHOBHA [place] [facility] Description: Urinalysis Reflex Cult & Micro [URIN] Stat Comment: Specimen: Has been collected 09/29/16 22:36 Culture,Blood,Additional [BC] Stat Comment: SHOBHA Source: Peripheral Venipuncture Quantity: 2 Specimen: Send someone from the department to collect Specimen Description: 09/29/16 23:39 12 lead ECG assessment [RC] NOW ECG 12 lead ECG [ECG] Stat Mode Of Transportation: Ambulatory Reason For Exam: repeat Exam Performed At:: [facility] 09/30/16 01:[address] Stat Comment: Reason for Visit: elevated troponin, gastroenteritis 09/30/16 02:56 Apply anti-embolic stockings [RC] .NOW Incentive Spirometry [RC] .6 TIMES PER HR WHILE AWAKE Peripheral IV [RC] CONT Placement to Observation Routine Physician Instructions: Reason for Visit: Nausea vomiting abdominal pain and diarrhea Is VTE Prophylaxis Indicated?: Yes Vital Signs Assessment [RC] Q4H Acetaminophen [Tylenol] 650 mg PO Q6HR PRN Docusate [Colace] 100 mg PO BID PRN Morphine [Morphine Sulfate] 2 mg IVP Q4HR PRN Naloxone [Narcan] 0.4 mg IVP Q2MIN PRN Ondansetron [Zofran] 4 mg IVP Q8HR PRN OxyCODONE Immed Rel [Roxicodone] 5 mg PO Q6HR PRN Scopolamine Patch [Transderm-Scop] 1.5 mg TD ONCE ONE 09/30/16 02:57 Bed rest [RC] .CONT Physician Instructions: Bed rest w/bedside commode [RC] .PRN Cardiac Monitoring Med/Surg [RC] .CONT Telemetry Reason: ACS/CP Continuous pulse oximetry [RC] CONT Comment: Measure intake and output [RC] QSHIFT Measure weight [RC] DAILY RT has an order or consult [RC] NOW 09/30/16 03:00 Troponin I Q6H Comment: Specimen: Send someone from the department to collect 0.9 % Sodium Chloride 1,000 ml IVC 75 mls/hr Up with Assist Daily Comment: Physician Instructions: 09/30/16 03:08 Piperacillin/Tazobactam [Zosyn] 3.375 gm D5% in Water (Mini-Bag+) [Dextrose 5 % (Minibag+) 100 ML] 100 ml IVPB Q8HR 09/30/16 04:00 Ammonia AM 0400 Comment: Specimen: Send someone from the department to collect C-Reactive Protein AM 0400 Comment: Specimen: Send someone from the department to collect GI Panel,Stool [MOLMIC] Routine Specimen: Send someone from the department to collect Hgb A1C AM 0400 Comment: Specimen: Send someone from the department to collect Lactic Acid ([facility] Only) AM 0400 Comment: Specimen: Send someone from the department to collect Lipid Panel AM 0400 Comment: Specimen: Send someone from the department to collect Magnesium AM 0400 Comment: Specimen: Send someone from the department to collect Phosphorous AM 0400 Comment: Specimen: Send someone from the department to collect Respiratory Infection Panel [MOLMIC] AM 0400 Specimen: Send someone from the department to collect Thyroid Stimulating Hormone AM 0400 Comment: Specimen: Send someone from the department to collect Viral Culture,Respiratory [RM] AM 0400 Comment: SHOBHA Source: Nasopharyngeal Specimen: Send someone from the department to collect Specimen Description: 09/30/16 06:00 Metoclopramide [Reglan] 5 mg IVP Q6HR 09/30/16 08:00 Piperacillin/Tazobactam [Zosyn] 3.375 gm D5% in Water (Mini-Bag+) [Dextrose 5 % (Minibag+) 100 ML] 100 ml IVPB Q8HR 09/30/16 09:00 Troponin I Q6H Comment: Specimen: Send someone from the department to collect Pantoprazole [Protonix] 40 mg IVP DAILY 09/30/16 15:00 Troponin I Q6H Comment: Specimen: Send someone from the department to collect 09/30/16 Breakfast Clear Liquid Diet Diet Modifications: 10/01/16 03:00 Up with Assist Daily Comment: Physician Instructions: 10/02/16 03:00 Up with Assist Daily Comment: Physician Instructions: Patient Problems (Last Updated 09/30/16 @ 03:13 by Jamil Schreiber MD) Elevated troponin (Acute) Gastroenteritis (Acute) Intractable nausea and vomiting (Acute) Acute diarrhea (Acute) Abdominal pain of multiple sites (Acute) UTI (urinary tract infection) (Acute) Elevated troponin I measurement (Acute) Acute gastroenteritis (Acute) LLL pneumonia (Acute) SIRS due to infectious process with organ dysfunction (Acute) Sepsis (Acute) Accelerated hypertension (Acute) Neutrophilic leukocytosis (Acute) Vital Signs Temp Pulse Resp BP Pulse Ox 09/30/16 02:56 0 0/0 09/30/16 02:18 98.2 F 09/30/16 00:54 101 18 151/67 95 09/30/16 00:00 108 18 152/64 96 09/29/16 21:57 99.4 F 114 16 201/99 95 Laboratory Results 09/29/16 09/29/16 09/29/16 Range/Units 22:10 22:10 22:10 WBC 12.1 H (4.3-11.1) K/mcL RBC 4.38 (3.82-4.97) M/mcL Hgb 11.8 (11.5-15.4) g/dL Hct 37.7 (35.3-44.9) % MCV 86.1 (83.0-100.0) fL MCH 26.9 L (28.0-33.3) pg MCHC 31.3 L (31.6-35.5) g/dL RDW 16.9 H (11.5-14.5) % Plt Count 190 (140-400) K/mcL MPV 10.9 (9.4-12.4) fL Immature Gran % 0.6 (0-4) % Seg Neutrophils % 91.5 % Lymphocytes % 5.5 % Monocytes % 1.7 % Eosinophils % 0.5 % Basophils % 0.2 % Neutrophils # 11.1 H (1.6-8.9) K/mcL Lymphocytes # 0.7 (0.6-4.6) K/mcL Monocytes # 0.2 (0.0-1.3) K/mcL Eosinophils # 0.1 (0.0-0.6) K/mcL Basophils # 0.0 (0.0-0.2) K/mcL Sodium 137 (136-145) mEq/L Potassium 3.7 (3.5-4.5) mEq/L Chloride 106 (98-109) mEq/L Carbon Dioxide 21 (19-29) mEq/L BUN 21 H (7-20) mg/dL Creatinine 1.10 (0.57-1.11) mg/dL Est GFR ( Amer) 57 L (> 60) Est GFR (Non-Af Amer) 47 L (> 60) BUN/Creatinine Ratio 19 (6-26) Glucose 117 H (70-99) mg/dL Calculated Osmolality 288 (280-300) Lactic Acid 1.8 (0.5-2.2) mmol/L Calcium 9.7 (8.6-10.8) mg/dL Total Bilirubin 1.3 H D (0.2-1.2) mg/dL AST 18 (5-34) Units/L ALT 15 (0-55) Units/L Alkaline Phosphatase 196 H (38-126) Units/L Troponin I (0-0.03) ng/mL Serum Total Protein 7.5 (6.0-8.3) g/dL Albumin 3.3 L (3.5-5.0) g/dL Globulin 4.2 H (2.4-3.5) g/dL Albumin/Globulin Ratio 0.8 L (1.1-2.2) Amylase 23 L (25-125) Units/L Lipase 14 (8-78) Units/L Urine Color (Yellow) Urine Clarity (Clear) Urine pH (5.0-8.0) pH Units Ur Specific [place] (1.010-1.025) Urine Protein (Neg-Trace) mg/dL Urine Glucose (UA) (Normal) mg/dL Urine Ketones (Negative) mg/dL Urine Blood (Negative) Urine Nitrite (Negative) Urine Bilirubin (Negative) Urine Urobilinogen (Normal) mg/dL Ur Leukocyte Esterase (Negative) Urine Microscopic RBC (0-3) per hpf Urine Microscopic WBC (0-3) per hpf Ur Squamous Epith Cells (None-Few) per lpf Urine Bacteria (None-Few) per hpf Hyaline Casts (None-Few) per lpf Urine Yeast Ur Culture Indicated? (NO) 09/29/16 09/29/16 Range/Units 22:10 22:30 WBC (4.3-11.1) K/mcL RBC (3.82-4.97) M/mcL Hgb (11.5-15.4) g/dL Hct (35.3-44.9) % MCV (83.0-100.0) fL MCH (28.0-33.3) pg MCHC (31.6-35.5) g/dL RDW (11.5-14.5) % Plt Count (140-400) K/mcL MPV (9.4-12.4) fL Immature Gran % (0-4) % Seg Neutrophils % % Lymphocytes % % Monocytes % % Eosinophils % % Basophils % % Neutrophils # (1.6-8.9) K/mcL Lymphocytes # (0.6-4.6) K/mcL Monocytes # (0.0-1.3) K/mcL Eosinophils # (0.0-0.6) K/mcL Basophils # (0.0-0.2) K/mcL Sodium (136-145) mEq/L Potassium (3.5-4.5) mEq/L Chloride (98-109) mEq/L Carbon Dioxide (19-29) mEq/L BUN (7-20) mg/dL Creatinine (0.57-1.11) mg/dL Est GFR ( Amer) (> 60) Est GFR (Non-Af Amer) (> 60) BUN/Creatinine Ratio (6-26) Glucose (70-99) mg/dL Calculated Osmolality (280-300) Lactic Acid (0.5-2.2) mmol/L Calcium (8.6-10.8) mg/dL Total Bilirubin (0.2-1.2) mg/dL AST (5-34) Units/L ALT (0-55) Units/L Alkaline Phosphatase (38-126) Units/L Troponin I 0.12 H* (0-0.03) ng/mL Serum Total Protein (6.0-8.3) g/dL Albumin (3.5-5.0) g/dL Globulin (2.4-3.5) g/dL Albumin/Globulin Ratio (1.1-2.2) Amylase (25-125) Units/L Lipase (8-78) Units/L Urine Color Yellow (Yellow) Urine Clarity Cloudy A (Clear) Urine pH 7.0 (5.0-8.0) pH Units Ur Specific [place] 1.015 (1.010-1.025) Urine Protein 30 H (Neg-Trace) mg/dL Urine Glucose (UA) Normal (Normal) mg/dL Urine Ketones Negative (Negative) mg/dL Urine Blood Moderate H (Negative) Urine Nitrite Positive A (Negative) Urine Bilirubin Negative (Negative) Urine Urobilinogen Normal (Normal) mg/dL Ur Leukocyte Esterase Large H (Negative) Urine Microscopic RBC 3-5 H (0-3) per hpf Urine Microscopic WBC TNTC H (0-3) per hpf Ur Squamous Epith Cells Moderate H (None-Few) per lpf Urine Bacteria Many H (None-Few) per hpf Hyaline Casts None Seen (None-Few) per lpf Urine Yeast Test Not Performed Ur Culture Indicated? YES A (NO) Assessments/Treatments 12 lead ECG assessment Start: 09/29/16 22: 01 Freq: NOW Status: Complete Document 09/29/16 22:17 [facility] (Rec: 09/29/16 22:17 [facility] [id number]) EKG Time EKG Completed 22:25 EKG performed by Thea EKG shown to and signed by Ronn 12 lead ECG assessment Start: 09/29/16 23: 39 Freq: NOW Status: Complete Document 09/29/16 23:40 CBJ (Rec: 09/29/16 23:40 CB [id number]) EKG Time EKG Completed 23:40 EKG performed by Thea EKG shown to and signed by Chelo Cardiac monitoring Start: 09/29/16 21: 54 Freq: Status: Complete Document 09/29/16 21:57 NNN (Rec: 09/29/16 22:09 NNN [id number]) Cardiac Monitoring Heart Rate 114 Monitoring Method Telemetry Rhythm Sinus Tachycardia Monitor Number [id number] Strip placed in Chart No Monitor History Reviewed Yes Memory Cleared Yes Collect Specimen: [id number] Start: 09/29/16 22: 17 Freq: ONCE Status: Complete Document 09/29/16 22:17 CB (Rec: 09/29/16 22:17 [id number] Collect Specimen: [id number] Start: 09/29/16 22: 17 Freq: ONCE Status: Complete Document 09/29/16 22:17 CB (Rec: 09/29/16 22:17 CB [id number]) Critical Value Reporting Start: 09/29/16 22: 50 Freq: Status: Complete Document 09/29/16 22:50 CB (Rec: 09/29/16 22:50 CB [id number]) Critical Values Reporting Test(s) and Results trop 0.12 Time Results Received 22:49 Provider Notified Yes Time Provider Contacted 22:49 Provider Name brenda whitney Time Provider Responded 22:49 Number of Attempts to Reach Provider 1 New Orders Received Yes ED Discharge Assessment Start: 09/29/16 21: 54 Freq: Status: Complete Document 09/30/16 02:56 CBJ (Rec: 09/30/16 02:56 CB [id number]) ED Discharge Assessment ED Discharge Disposition Admitted ED Condition on Discharge Fair Med Rec/Patient Pharmacy Completed? No Admitted to 2A Bed assigned 14 Transported by semiconductor lab technician Transported with IV pulse oximetry Report given to Nurse Care transferred to (name/credentials) Theresa RN Information relayed patient's care treatments medications given condition recent/anticipated changes Clinical Documentation Summary Provided Yes Pain Scale 0 Pain Scale Used Standard (1-10) Blood Pressure 0/0 Heart rate 0 Respiratory Rate 0 Oxygen Saturation 0 Critical Care Minutes 0 ED Nausea/Vomiting/Diarrhea Assessment Start: 09/29/16 21: 54 Freq: Status: Complete Document 09/29/16 21:57 NNN (Rec: 09/29/16 22:09 [id number]) Nausea/Vomiting/Diarrhea Symptoms/Complaint Nausea Vomiting Diarrhea Onset 1 day Associated Abdominal Pain Yes Quality Cramping Consistency Constant Context Unknown Emesis Description Undigested Food Improves With Nothing Worsens With Nothing Associated Symptoms Fever/Chills Level Of Consciousness Awake Alert Appropriate Follows Commands Patient Orientation Person Place Time Respiratory Depth Normal Respiratory Effort Normal for Patient Non-Labored Respiratory Pattern Regular abd Pain Description Cramping Intensity 4 Scale Used Numeric (1 - 10) Abdomen Description Flat Soft Tender Saline lock insertion/management Start: 09/29/16 21: 54 Freq: Status: Active Document 09/29/16 22:09 NNN (Rec: 09/29/16 22:10 [id number]) IV Insertion/Site Assessment IV Attempt 1 Successful Successful Blood drawn and sent to Lab Yes Right Antecubital IV Established BOWSTRING MAKER No Date of Insertion 09/29/16 Time of Insertion 22:09 Reason for IV Insertion Provide Access for IV Medication(s) IV Catheter Type Peripheral IV Gauge (gauge) 20 Site Observation Patent Dressing Applied Transparent Dressing Patient Tolerance Tolerated Well Saline lock insertion/management Start: 09/29/16 21: 58 Freq: .ONCE Status: Complete Document 09/29/16 22:17 [facility] (Rec: 09/29/16 22:17 [id number] IV Insertion/Site Assessment IV Attempt 1 Successful Successful Blood drawn and sent to Lab Yes Comment Camila STORY Right Antecubital IV Established BOWSTRING MAKER No Date of Insertion 09/29/16 Time of Insertion 22:17 Reason for IV Insertion Provide Access for IV Medication(s) Provide Access for Emergency IV Catheter Type Peripheral IV Gauge (gauge) 20 Site Observation Patent Dressing Applied Window Dressing Patient Tolerance Tolerated Well Triage Start: 09/29/16 21: 54 Freq: Status: Complete Document 09/29/16 21:57 NNN (Rec: 09/29/16 22:09 [id number] Triage Chief Complaint triage ED Nausea/Vomiting/Diarrhea Patient Stated Complaint n/v/fever BYRON 3 Description of Symptoms pt states that since last night she has had abd pain n/v /diarrhea and fevers. General Appearance alert in no apparent distress Work Related Injury? No Mode of arrival EMS Arrival via EMS [facility] Source patient EMS Limitations no limitations Ebola Risk: Travel/Contact With Anyone No From Affected Area/s Has Patient Experienced Ebola Symptoms No Temperature (97.6 F-99.6 F) 99.4 F Temperature Source Oral Pulse Rate 114 Respiratory Rate 16 Blood Pressure 201/99 O2 Sat by Pulse Oximetry (95-100) 95 Oxygen Delivery Room Air Height 1.6 m Weight 70.307 kg Weight Measurement Method Stated by Patient Pain Scale 5 Pain Scale Used Standard (1-10) Medical history arthritis asthma COPD hypertension osteoporosis Additional surgical history PMH knee replacements, 4 back surgeries Psychiatric history anxiety depression Smoking Status Never smoker Smokeless Tobacco Status No Alcohol Use none Drug Use none Patient resides with/at Alone Safety Concerns Feels Safe At This Time Do you currently feel hopless, have No thoughts of self harm, or thoughts of harming others History of fall in last 14 days? No Influenza vaccine up to date Yes Pneumonia vaccine up to date Yes Tetanus UTD unsure Vital Signs Assessment Start: 09/29/16 21: 58 Freq: PROTOCOL Status: Complete Document 09/30/16 00:00 [facility] (Rec: 09/30/16 00:54 [facility] [id number]) ED Vital Signs Pain Reported No Pain Reported Pain Scale 0 Pain Scale Used Standard (1-10) Blood Pressure 152/64 Pulse Rate 108 Respiratory Rate 18 Pulse Oximetry (95-100) 96 Oxygen Delivery Nasal Cannula Oxygen Flow Rate (LPM) 2 Document 09/30/16 00:54 [facility] (Rec: 09/30/16 00:55 [facility] [id number]) ED Vital Signs Pain Reported No Pain Reported Pain Scale 0 Pain Scale Used Standard (1-10) Blood Pressure 151/67 Pulse Rate 101 Respiratory Rate 18 Pulse Oximetry (95-100) 95 Oxygen Delivery Nasal Cannula Oxygen Flow Rate (LPM) 2 Document 09/30/16 02:18 [facility] (Rec: 09/30/16 02:18 [facility] [id number]) ED Vital Signs Pain Reported No Pain Reported Pain Scale 0 Pain Scale Used Standard (1-10) Temperature (97.6 F-99.6 F) 98.2 F Temperature Source Oral Discharge Information ED Provider: William Rocha Status: Departed Time Seen by Provider: 09/29/16 21:58 Condition: Fair Triaged At: Emergency Discharge Date/Time: 09/30/16 03:13 Emergency Discharge Disposition: Admitted As Inpatient Clinical Impression Elevated troponin Gastroenteritis Emergency Discharge Comment: Admit Intervention Last Done ED Nausea/Vomiting/Diarrhea Assessment 09/29/16 21:57 Query Result Nausea/Vomiting/Diarrhea Symptoms/ Nausea Complaint Vomiting Diarrhea Nausea/Vomiting/Diarrhea Onset 1 day Nausea/Vomiting/Diarrhea Associated Yes Abdominal Pain Nausea/Vomiting/Diarrhea Quality Cramping Nausea/Vomiting/Diarrhea Consistency Constant Nausea/Vomiting/Diarrhea Context Unknown Emesis Description Undigested Food Nausea/Vomiting/Diarrhea Improves With Nothing Nausea/Vomiting/Diarrhea Worsens With Nothing Nausea/Vomiting/Diarrhea Associated Fever/Chills Symptoms Level Of Consciousness Awake Alert Appropriate Follows Commands Patient Orientation Person Place Time Respiratory Depth Normal Respiratory Effort Normal for Patient Non-Labored Respiratory Pattern Regular abd -Pain Description Cramping -Pain Intensity 4 -Pain Scale Used Numeric (1 - 10) Abdomen Description Flat Soft Tender ED Discharge Assessment 09/30/16 02:56 Query Result ED Discharge Disposition Admitted ED Condition on Discharge Fair Med Rec/Patient Phamracy completed? No ED Admit to 2A Bed assigned 14 Transported by semiconductor lab technician Transported with IV pulse oximetry Report given to Nurse Care transferred to Theresa RN Information relayed patient's care treatments medications given condition recent/anticipated change Clinical Documentation Summary Provided Yes Severity scale (1-10) 0 Pain Scale Used Standard (1-10) Blood Pressure 0/0 Heart rate 0 Respiratory Rate 0 Pulse Oximetry Reading 0 Critical Care Minutes 0 Observation Discharge Date/Time: Observation Discharge Disposition: Observation Discharge Comment: Instructions: Stand-Alone Forms: Prescriptions: Visit Report - Forms: - Referrals: Radiology Results Abdomen/Pelvis CT 09/29/16 21:59 IMPRESSION: Diverticulosis without scan evidence for diverticulitis or other acute process. D/ / Serjio Salmeron MD / Serjio Salmeron MD Interpreting Provider: Serjio Salmeron MD Chest X-Ray 03/17/17 22:01
[2016-09-30] MEDS ORDERED: Albuterol 2.5 MG/3 ML NEBULIZER IH PRN (03:54)
[2016-09-30 04:04] LABS: Hemoglobin A1C 5.4 %
[2016-09-30 04:09] LABS: Chol/HDL Ratio 3.5 (0-4.9); Magnesium 1.6 mg/dL (1.6-2.6); Phosphorous 3.2 mg/dL (2.3-4.7)
[2016-09-30] MEDS: Piperacillin/Tazobactam 3.375 GM in D5% in Water (Mini-Bag+) 100 ML IVPB SCH ×4 (04:15→20:11)
[2016-09-30] MEDS: 0.9 % Sodium Chloride 1,000 ML IVC SCH (04:15)
[2016-09-30 04:28] LABS: Thyroid Stimulating Hormone 0.632 mcIU/mL (0.350-4.840)
[2016-09-30] MEDS: Ipratropium/Albuterol Neb 3 ML IH SCH ×4 (05:11→23:49)
[2016-09-30] MEDS: Metoclopramide 10 MG/2 ML VIAL IVP SCH ×4 (06:32→23:27)
[2016-09-30] MEDS ORDERED: Piperacillin/Tazobactam 3.375 GM in D5% in Water (Mini-Bag+) 100 ML IVPB SCH (08:00)
[2016-09-30] MEDS: Doxycycline 100 MG CAPSULE PO SCH ×2 (09:01→20:12)
[2016-09-30] MEDS: Lactobacillus 1 EACH CAP.SPRINK PO SCH ×2 (09:01→20:12)
[2016-09-30] MEDS: Pantoprazole 40 MG VIAL IVP SCH (09:01)
--- NOTE | 2016-09-30 12:25 | Event Note ---
Date of Encounter: 09/30/16 Time of Encounter: 08:30 86 y/o female admitted earlier this AM with intractable nausea and vomiting. She appears to be resting more comfortably. No new acute issues. Exam Alert. Comforable. Heart reg Lungs no wheeze Plan Continue IV fluids and plan of care that was ordered this AM.
[2016-09-30] MEDS: Acetaminophen 325 MG TABLET PO PRN (12:32)
[2016-09-30 13:53] LABS: Acinetobacter baumannii by PCR Not Detected (Not Detect); Candida albicans by PCR Not Detected (Not Detect); Candida glabrata by PCR Not Detected (Not Detect); Candida krusei by PCR Not Detected (Not Detect); Candida parapsilosis by PCR Not Detected (Not Detect); Candida tropicalis by PCR Not Detected (Not Detect); Enterococcus by PCR Not Detected (Not Detect); Escherichia coli by PCR ***DETECTED*** (Not Detect); Klebsiella oxytoca by PCR Not Detected (Not Detect); Klebsiella pneumoniae by PCR Not Detected (Not Detect); Pseudomonas aeruginosa by PCR Not Detected (Not Detect); Serratia marcescens by PCR Not Detected (Not Detect); Staphylococcus aureus by PCR Not Detected (Not Detect); Streptococcus agalactiae(B)PCR Not Detected (Not Detect); Streptococcus by PCR Not Detected (Not Detect); Streptococcus pneumoniae PCR Not Detected (Not Detect); Streptococcus pyogenes (A) PCR Not Detected (Not Detect); blaKPC Carbapenem-Resist Gene Not Detected (Not Detect)
[2016-09-30] MEDS ORDERED: *HR* Enoxaparin 80 MG/0.8 ML SYRINGE SQ SCH (18:00)
[2016-09-30] MEDS: *HR* OxyCODONE Immed Rel 5 MG TABLET PO PRN (23:26)
[2016-10-01] MEDS: Piperacillin/Tazobactam 3.375 GM in D5% in Water (Mini-Bag+) 100 ML IVPB SCH ×3 (03:18→18:13)
[2016-10-01] MEDS: Ipratropium/Albuterol Neb 3 ML IH SCH ×3 (04:50→16:08)
[2016-10-01 07:50] LABS: Hematocrit 31.4 % (35.3-44.9); Mean Corpuscular HGB Conc 31.8 g/dL (31.6-35.5); Mean Corpuscular Hemoglobin 27.3 pg (28.0-33.3); Mean Corpuscular Volume 85.8 fL (83.0-100.0); Mean Platelet Volume 10.9 fL (9.4-12.4); Platelet Count 156 K/mcL (140-400); Red Blood Count 3.66 M/mcL (3.82-4.97); Red Cell Distribution Width 17.2 % (11.5-14.5)
[2016-10-01 07:59] LABS: Albumin 2.6 g/dL (3.5-5.0); Albumin/Globulin Ratio 0.7 (1.1-2.2); Bilirubin,Total 0.6 mg/dL (0.2-1.2); Calcium 8.8 mg/dL (8.6-10.8); Globulin 3.9 g/dL (2.4-3.5); Magnesium 1.5 mg/dL (1.6-2.6); Potassium 3.3 mEq/L (3.5-4.5); Total Protein 6.5 g/dL (6.0-8.3)
[2016-10-01] MEDS: Doxycycline 100 MG CAPSULE PO SCH ×2 (08:48→20:57)
[2016-10-01] MEDS: Lactobacillus 1 EACH CAP.SPRINK PO SCH ×2 (08:48→20:57)
[2016-10-01] MEDS: 0.9 % Sodium Chloride 1,000 ML IVC SCH ×2 (08:48→08:49)
[2016-10-01] MEDS: Pantoprazole 40 MG VIAL IVP SCH (08:48)
[2016-10-01] MEDS: Acetaminophen 325 MG TABLET PO PRN (11:18)
[2016-10-01] MEDS: Ondansetron 4 MG/2 ML VIAL IVP PRN ×2 (11:20→18:13)
--- NOTE | 2016-10-01 11:20 | Internal Med Progress Note ---
Date of Encounter: 10/01/16 Time of Encounter: 10:30 - Assessment and plan (1) Sepsis Current Visit: Yes Status: Acute Assessment and plan: Pt with E coli UTI and bacteremia. Final sensitivities pending. Will continue same IV abx and supportive care at this time. Repeat blood cultures today. Qualifiers: Sepsis type: Escherichia coli Qualified Code(s): A41.51 - Sepsis due to Escherichia coli [E. coli] (2) UTI (urinary tract infection) Current Visit: Yes Status: Acute Assessment and plan: E coli UTI on IV abx Qualifiers: Urinary tract infection type: acute cystitis Hematuria presence: without hematuria Qualified Code(s): N30.00 - Acute cystitis without hematuria (3) Intractable nausea and vomiting Current Visit: Yes Status: Acute Assessment and plan: GI symptoms seem to be improving. Qualifiers: Vomiting type: cyclical vomiting Qualified Code(s): G43.A1 - Cyclical vomiting, intractable (4) COPD (chronic obstructive pulmonary disease) Current Visit: Yes Status: Chronic Assessment and plan: Chronic. Continue home meds. Qualifiers: COPD type: emphysema Emphysema type: centrilobular Qualified Code(s): J43.2 - Centrilobular emphysema (5) YONNY (obstructive sleep apnea) Current Visit: Yes Status: Chronic Assessment and plan: Continue home regimen. (6) Hypertension Current Visit: Yes Status: Chronic Assessment and plan: Continue home meds. Qualifiers: Hypertension type: essential hypertension Qualified Code(s): I10 - Essential (primary) hypertension (7) Hypothyroid Current Visit: Yes Status: Chronic Assessment and plan: Continue home med. Qualifiers: Hypothyroidism type: acquired Qualified Code(s): E03.9 - Hypothyroidism, unspecified (8) Irritable bowel syndrome (IBS) Current Visit: Yes Status: Chronic Assessment and plan: Supportive care Qualifiers: Irritable bowel syndrome type: with diarrhea Qualified Code(s): 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 - Subjective Interval history: Ms. Jones is currently in observation due to E coli UTI and bacteremia. She remains moderate to high risk due to potential for worsening infectious issues. Ms. Jones did not sleep well. Her back hurts with the bed. No fever or chills. Wants to go home. Still with some cough. No diarrhea now. Has recurrent bladder infections and sees Dr. Harris as outpatient. - Constitutional Vitals: Temp Pulse Resp BP Pulse Ox 98.4 F 97 16 150/75 98 10/01/16 07:05 10/01/16 07:05 10/01/16 10:32 10/01/16 07:05 10/01/16 10:32 General appearance: Present: A&O X 3, pleasant, answers questions appropriately - Head Head exam: Present: normocephalic - Eye Eye exam: Present: conjuntiva pink - ENT ENT exam: Present: mucous membranes dry - Respiratory Respiratory exam: Present: decreased breath sounds, rhonchi - Cardiovascular Cardiovascular exam: Present: RRR. Absent: tachycardia - GI/Abdominal GI/Abdominal exam: Present: soft. Absent: mass, tenderness - Extremities Exam Extremities exam: Present: warm. Absent: pedal edema - Neurological Exam Neurological exam: Present: alert, oriented X3, no focal deficits - Psychiatric Psychiatric exam: Present: normal affect, normal mood - Skin Skin exam: Present: warm. Absent: rash Internal Medicine: Result - Labs CBC & Chem 7: 10/01/16 07:29 10/01/16 07:29 Labs: Short CBC 10/01/16 Range/Units 07:29 WBC 18.5 H D (4.3-11.1) K/mcL Hgb 10.0 L D (11.5-15.4) g/dL Hct 31.4 L (35.3-44.9) % Plt Count 156 (140-400) K/mcL BMP 10/01/16 07:29 Sodium 137 Potassium 3.3 L Chloride 106 Carbon Dioxide 22 BUN 20 Creatinine 1.06 Glucose 111 H Calcium 8.8 Cardiac Enzymes 09/30/16 09/30/16 10/01/16 Range/Units 15:20 21:02 07:29 Troponin I 0.50 H* 0.33 H* 0.20 H* (0-0.03) ng/mL Liver Function 10/01/16 Range/Units 07:29 Total Bilirubin 0.6 (0.2-1.2) mg/dL AST 16 (5-34) Units/L ALT 12 (0-55) Units/L Alkaline Phosphatase 156 H (38-126) Units/L Albumin 2.6 L D (3.5-5.0) g/dL - VTE Documentation of Mechanical Device: Graduated compression elastic hosiery Consult Discharge Plan - Plan Referrals: Nely Montelongo MD [Primary Care Provider] - (Requested 10-01-16)
--- NOTE | 2016-10-01 13:02 | Electrocardiograph Report ---
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
--- NOTE | 2016-10-01 13:03 | Electrocardiograph Report ---
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
[2016-10-01 17:11] LABS: Adenovirus F 40/41 PCR Not detected (Not detect); Astrovirus PCR Not detected (Not detect); Campylobacter by PCR Not detected (Not detect); Cryptosporidium by PCR Not detected (Not detect); Cyclospora cayetanensis PCR Not detected (Not detect); E. coli O157 by PCR Not detected (Not detect); Entamoeba histolytica PCR Not detected (Not detect); Enteroaggregative E.coli(EAEC) Not detected (Not detect); Enteropathogenic E.coli(EPEC) Not detected (Not detect); Enterotoxigenic E.coli (ETEC) Not detected (Not detect); Giardia lamblia PCR Not detected (Not detect); Norovirus GI/GII PCR Not detected (Not detect); Plesiomonas shigelloides PCR Not detected (Not detect); Rotavirus A PCR Not detected (Not detect); Salmonella PCR Not detected (Not detect); Sapovirus PCR Not detected (Not detect); Shig/EnteroinvasiveE coli EIEC Not detected (Not detect); Shigalike tox-prod E coli STEC Not detected (Not detect); Vibrio PCR Not detected (Not detect); Vibrio cholerae PCR Not detected (Not detect); Yersinia enterocolitica PCR Not detected (Not detect)
[2016-10-01] MEDS: *HR* Enoxaparin 40 MG/0.4 ML SYRINGE SQ SCH (18:14)
[2016-10-01] MEDS: *HR* OxyCODONE Immed Rel 5 MG TABLET PO PRN (21:00)
[2016-10-02] MEDS: Ipratropium/Albuterol Neb 3 ML IH SCH ×5 (01:21→23:51)
[2016-10-02] MEDS: Piperacillin/Tazobactam 3.375 GM in D5% in Water (Mini-Bag+) 100 ML IVPB SCH ×3 (03:43→18:45)
[2016-10-02 04:41] LABS: Acinetobacter baumannii by PCR Not Detected (Not Detect); Enterococcus by PCR Not Detected (Not Detect); Staphylococcus aureus by PCR Not Detected (Not Detect); Streptococcus agalactiae(B)PCR Not Detected (Not Detect); Streptococcus by PCR Not Detected (Not Detect); Streptococcus pneumoniae PCR Not Detected (Not Detect); Streptococcus pyogenes (A) PCR Not Detected (Not Detect); blaKPC Carbapenem-Resist Gene Not Detected (Not Detect)
[2016-10-02 04:42] LABS: Candida albicans by PCR Not Detected (Not Detect); Candida glabrata by PCR Not Detected (Not Detect); Candida krusei by PCR Not Detected (Not Detect); Candida parapsilosis by PCR Not Detected (Not Detect); Candida tropicalis by PCR Not Detected (Not Detect); Escherichia coli by PCR ***DETECTED*** (Not Detect); Klebsiella oxytoca by PCR Not Detected (Not Detect); Klebsiella pneumoniae by PCR Not Detected (Not Detect); Pseudomonas aeruginosa by PCR Not Detected (Not Detect); Serratia marcescens by PCR Not Detected (Not Detect)
[2016-10-02 04:54] LABS: Hematocrit 34.6 % (35.3-44.9); Hemoglobin 10.6 g/dL (11.5-15.4); Mean Corpuscular HGB Conc 30.6 g/dL (31.6-35.5); Mean Corpuscular Hemoglobin 26.7 pg (28.0-33.3); Mean Corpuscular Volume 87.2 fL (83.0-100.0); Mean Platelet Volume 10.8 fL (9.4-12.4); Platelet Count 136 K/mcL (140-400); Red Blood Count 3.97 M/mcL (3.82-4.97)
[2016-10-02 05:08] LABS: BUN/Creatinine Ratio 15 (6-26); Blood Urea Nitrogen 14 mg/dL (7-20); Calcium 9.1 mg/dL (8.6-10.8); Carbon Dioxide 23 mEq/L (19-29); Chloride 107 mEq/L (98-109); Glucose 105 mg/dL (70-99); Magnesium 1.4 mg/dL (1.6-2.6); Osmolality,Calculated 291 (280-300); Potassium 3.5 mEq/L (3.5-4.5); Sodium 140 mEq/L (136-145); eGFR For African Americans > 60 (> 60); eGFR For Non-African Americans 57 (> 60)
[2016-10-02] MEDS: Lactobacillus 1 EACH CAP.SPRINK PO SCH ×2 (08:45→21:47)
[2016-10-02] MEDS: Pantoprazole 40 MG VIAL IVP SCH (08:45)
[2016-10-02] MEDS: Doxycycline 100 MG CAPSULE PO SCH (08:45)
[2016-10-02] MEDS ORDERED: Ondansetron ODT 4 MG TAB.RAPDIS SL PRN (09:28)
--- NOTE | 2016-10-02 10:12 | Internal Med Progress Note ---
<Gabriela Osorio - Last Filed: 10/02/16 14:43> Date of Encounter: 10/02/16 Time of Encounter: 10:08 - Assessment and plan (1) Bacteremia due to Gram-negative bacteria Current Visit: Yes Status: Acute Assessment and plan: 09/29 blood culture with gram negative rods and positive for roach sensitive E. coli likely related to UTI. 10/01 blood culture with gram negative rods, identification and sensitivities pending. Patient is afebrile. WBC decreasing. Contineu antibiotics zosyn for UTI. (2) UTI (urinary tract infection) Current Visit: Yes Status: Acute Assessment and plan: Urine culture with roach sensitive E Coli. Continue treatment with zosyn. WBC decreasing. Patient afebrile. Qualifiers: Urinary tract infection type: acute cystitis Hematuria presence: without hematuria Qualified Code(s): N30.00 - Acute cystitis without hematuria (3) LLL pneumonia Current Visit: Yes Status: Acute Assessment and plan: Continue treatment with doxycycline. Qualifiers: Pneumonia type: due to unspecified organism Qualified Code(s): J18.1 - Lobar pneumonia, unspecified organism (4) Intractable nausea and vomiting Current Visit: Yes Status: Resolved Assessment and plan: Resolved. Patient is tolerating oral intake. Will change prilosec from IV to oral, will also change zofran from IV to oral sublingual. Qualifiers: Vomiting type: cyclical vomiting Qualified Code(s): G43.A1 - Cyclical vomiting, intractable (5) Hypertension Current Visit: Yes Status: Chronic Assessment and plan: Continue home meds. Qualifiers: Hypertension type: essential hypertension Qualified Code(s): I10 - Essential (primary) hypertension (6) Hypothyroid Current Visit: Yes Status: Chronic Assessment and plan: Continue home med. Qualifiers: Hypothyroidism type: acquired Qualified Code(s): E03.9 - Hypothyroidism, unspecified (7) COPD (chronic obstructive pulmonary disease) Current Visit: Yes Status: Chronic Assessment and plan: Chronic. Continue home meds. Qualifiers: COPD type: emphysema Emphysema type: centrilobular Qualified Code(s): J43.2 - Centrilobular emphysema (8) YONNY (obstructive sleep apnea) Current Visit: Yes Status: Chronic Assessment and plan: Continue home regimen. - Subjective Interval history: Patient seen and examined. Patient afebrile overnight. Patient states she is feeling significantly improved from when she arrived at the hospital. She states she is having issues sleeping due to the bed and her lower back. She feels that her urine "looks the best it ever has", she denies any pain with urination, blood in urine, flank pain or urinary frequency. She is tolerating her diet and reports she has had no further vomiting. She did briefly feel nauseous this morning but reports that has since resolved. She is anxious to get hoem to her own bed otehrwise has no acute concerns or complaints this morning. - Constitutional Vitals: Temp Pulse Resp BP Pulse Ox 98.4 F 106 16 184/99 97 10/02/16 08:00 10/02/16 08:00 10/02/16 08:00 10/02/16 08:00 10/02/16 08:00 General appearance: Present: A&O X 3, pleasant, answers questions appropriately - Head Head exam: Present: atraumatic - Eye Eye exam: Present: normal appearance - ENT ENT exam: Present: mucous membranes moist, normal external ear exam - Respiratory Respiratory exam: Present: CTAB. Absent: rales, rhonchi, stridor, wheezes - Cardiovascular Cardiovascular exam: Present: +S1, +S2, tachycardia. Absent: clicks, diastolic murmur, gallop, rubs, systolic murmur - GI/Abdominal GI/Abdominal exam: Present: normal bowel sounds, soft. Absent: distended, guarding, rigid, tenderness - Extremities Exam Extremities exam: Present: normal capillary refill. Absent: pedal edema - Psychiatric Psychiatric exam: Present: normal affect Internal Medicine: Result - Labs CBC & Chem 7: 10/02/16 04:35 10/02/16 04:35 Labs: Short CBC 10/02/16 Range/Units 04:35 WBC 14.7 H (4.3-11.1) K/mcL Hgb 10.6 L (11.5-15.4) g/dL Hct 34.6 L (35.3-44.9) % Plt Count 136 L (140-400) K/mcL BMP 10/02/16 04:35 Sodium 140 Potassium 3.5 Chloride 107 Carbon Dioxide 23 BUN 14 Creatinine 0.94 Glucose 105 H Calcium 9.1 - VTE Documentation of Mechanical Device: Graduated compression elastic hosiery Consult Discharge Plan - Plan Referrals: Nely Montelongo MD [Primary Care Provider] - 10/09/16 10:20 am () <Wil Hernadez - Last Filed: 10/02/16 16:47> - Assessment and plan (1) Sepsis Current Visit: Yes Status: Acute Qualifiers: Sepsis type: Escherichia coli Qualified Code(s): A41.51 - Sepsis due to Escherichia coli [E. coli] (2) UTI (urinary tract infection) Current Visit: Yes Status: Acute Qualifiers: Urinary tract infection type: acute cystitis Hematuria presence: without hematuria Qualified Code(s): N30.00 - Acute cystitis without hematuria (3) Intractable nausea and vomiting Current Visit: Yes Status: Resolved Qualifiers: Vomiting type: cyclical vomiting Qualified Code(s): G43.A1 - Cyclical vomiting, intractable (4) COPD (chronic obstructive pulmonary disease) Current Visit: Yes Status: Chronic Qualifiers: COPD type: emphysema Emphysema type: centrilobular Qualified Code(s): J43.2 - Centrilobular emphysema (5) YONNY (obstructive sleep apnea) Current Visit: Yes Status: Chronic (6) Hypertension Current Visit: Yes Status: Chronic Qualifiers: Hypertension type: essential hypertension Qualified Code(s): I10 - Essential (primary) hypertension (7) Hypothyroid Current Visit: Yes Status: Chronic Qualifiers: Hypothyroidism type: acquired Qualified Code(s): E03.9 - Hypothyroidism, unspecified (8) Irritable bowel syndrome (IBS) Current Visit: Yes Status: Chronic Qualifiers: Irritable bowel syndrome type: with diarrhea Qualified Code(s): 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 - Constitutional Vitals: Temp Pulse Resp BP Pulse Ox 98.0 F 104 18 181/100 100 10/02/16 10:44 10/02/16 10:44 10/02/16 16:29 10/02/16 10:44 10/02/16 16:29 Internal Medicine: Result - Labs CBC & Chem 7: 10/02/16 04:35 10/02/16 04:35 Labs: Short CBC 10/02/16 Range/Units 04:35 WBC 14.7 H (4.3-11.1) K/mcL Hgb 10.6 L (11.5-15.4) g/dL Hct 34.6 L (35.3-44.9) % Plt Count 136 L (140-400) K/mcL BMP 10/02/16 04:35 Sodium 140 Potassium 3.5 Chloride 107 Carbon Dioxide 23 BUN 14 Creatinine 0.94 Glucose 105 H Calcium 9.1 - Attending Attestation I examined this patient and my medical decision-making was reviewed with the Resident Physician on 10/02/16. I agree with the documented findings, disposition and treatment plan as described except to the extent set forth below. Ms. Jones is currently admitted for acute E coli UTI and bacteremia. Repeat blood cultures are positive from yesterday. She remains moderate to high risk due to potential for worsening infectious status. Ms. Jones is having discomfort in her back. She wants to go home. I explained to her she has repeat blood cx positive still and needs IV abx. No fever or chills. BP much more elevated today. She is anxious as well. Exam Alert. Anxious Heart reg No wheeze Abd soft No edema I/P 1. E. coli sepsis from UTI - on IV Zosyn (due to allergies/intolerances). Has had full urologic work up in the past. Will ask ID for any further input. Check echo in AM. 2. HTN - uncontrolled. Adjust meds. 3. N/V improved Further diagnoses and plan as above.
[2016-10-02] MEDS ORDERED: Magnesium Sulfate 2 GM in D5% in Water 100 ML IVPB ONE (12:09)
[2016-10-02] MEDS: *HR* HYDROcodone/Acet 10/325 mg TABLET PO PRN ×2 (12:42→21:48)
[2016-10-02] MEDS: *HR* Enoxaparin 40 MG/0.4 ML SYRINGE SQ SCH (17:29)
[2016-10-03] MEDS: Piperacillin/Tazobactam 3.375 GM in D5% in Water (Mini-Bag+) 100 ML IVPB SCH ×3 (02:42→18:29)
[2016-10-03] MEDS: Ipratropium/Albuterol Neb 3 ML IH SCH ×4 (04:58→22:46)
[2016-10-03] MEDS: *HR* HYDROcodone/Acet 10/325 mg TABLET PO PRN ×2 (06:33→22:28)
[2016-10-03] MEDS: Lactobacillus 1 EACH CAP.SPRINK PO SCH ×2 (08:02→22:29)
--- NOTE | 2016-10-03 11:28 | ECHO - Doppler Report ---
Echocardiogram Name: Pricilla Jones Date of Study: 10/03/2016 Date: 1930 Ht: 63.0 in Medical Record#: [id number] Age: 86 Wt: 190.0 lb Gender: Female BSA: 1.89 Order #: [id number] Location: [facility] Room #: [id number] Reading Physician: Lyric Blackmon DO Speech And Language Specialist: Ankush Peters Ordering Physician: Wil Hernadez DO Primary Physician: Nely Montelongo MD Indications: Ecoli bacteremia persistent Impressions: LVEF 60%. Normal left ventricular size and systolic function. There is evidence of mild diastolic dysfunction of the left ventricle. Normal right ventricular size and function. Mild tricuspid regurgitation. Mild pulmonary hypertension. Valvular vegetations are not seen on this study. Left Ventricular Wall Motion: Rest Echo Findings All wall segments showed normal motion. Findings: Study Quality * Technically adequate exam. ECG Findings * Normal sinus rhythm. Left Ventricle * LVEF 60%. * Normal LV chamber size, wall thickness and function. * Mild left ventricular diastolic dysfunction. Left Atrium * Mildly dilated left atrium. Mitral Valve * Normal mitral valve structure. * No mitral stenosis. * No mitral regurgitation. Aorta * Normally sized aortic root. Aortic Valve * No aortic regurgitation. * Trileaflet aortic valve. * Normal aortic valve structure. * No aortic stenosis. Tricuspid Valve * Normal tricuspid valve structure. * Mild tricuspid regurgitation. * Estimated RA pressure is 3 mmHg. * Estimated RVSP is 39 mmHg. * Mild pulmonary hypertension. Pulmonic Valve * Pulmonic valve is not well visualized. * No pulmonic stenosis. * No pulmonic regurgitation. Pulmonary Artery * Pulmonary artery not well visualized. Right Ventricle * Normal right ventricular structure and function. Right Atrium * Normal right atrial size. Interatrial Septum * No evidence of PFO by color Doppler. IVC * Normal IVC dimensions and inspiratory collapse. Pericardium * There is no pericardial effusion present. History Hypertension Family History of CAD Measurements: BP: 186/ 95 2D Normal Values IVSd: 1.10 cm 0.6 - 1.0 cm LVIDd: 3.90 cm 3.7 - 5.6 cm LVPWd: 1.10 cm 0.6 - 1.1 cm LVIDs: 2.80 cm 1.5 - 3.6 cm AO: 2.90 cm < 4.0 cm LA: 4.60 cm 2.0 - 4.0cm %FS: 28.20 cm >25 % LA volume: 58 Mitral Valve Peak E:.77 m/sec Peak A:.83 m/sec E/A Ratio:0.9 Peak E' Lat Keagan:9.36 cm/s Peak E' Med Keagan:4.87 cm/s E/E' Lat Ratio:8.2 E/E' Med Ratio:15.8 Tricuspid Valve TV Regurg Peak Grad: 36.00mmHg TV Regurg Peak Keagan: 3.00m/sec Updated by Lyric Blackmon on 10/03/2016 11:17:04 AM electronically signed on 10/03/2016 11:21:49 AM with status of Final [employer] [place]phill: 1=Normal, 2=Hypokinesis, 3=Akinesis, 4=Dyskinesis, 5=Aneurysmal, 6=Hyperkinetic, X=Not Visualized (Blank)=Missing
--- NOTE | 2016-10-03 11:39 | Infectious Disease Consult ---
Date of Encounter: 10/03/16 Time of Encounter: 11:37 Assessment and Plan (1) Sepsis Status: Acute Assessment and plan: The patient had two SIRS criteria on admission. Likely secondary to bacteremia and UTI. Improved. WBC has trended down. Tachycardia has improved. Blood cultures drawn 09/29/16 were positive 2/2 sets for E. coli. Repeat blood cultures drawn 10/01/16 were positive 2/2 sets for E. coli as well. Additional set of blood cultures drawn 10/02/16 are NGTD x 2 sets. Qualifiers: Sepsis type: Escherichia coli Qualified Code(s): A41.51 - Sepsis due to Escherichia coli [E. coli] (2) Bacteremia due to Gram-negative bacteria Status: Acute Assessment and plan: Causative organism roach-sensitive E. coli. Source likely UTI. Blood cultures drawn 09/29/16 were positive 2/2 sets for E. coli. Repeat blood cultures drawn 10/01/16 were positive 2/2 sets for E. coli as well. Additional blood cultures drawn 10/02/16 are NGTD x 2 sets. Continue Zosyn 3.375 grams IV Q8H for now (day 4). Await 48 hour preliminary report on the most recent set of blood cultures. If they remain negative at 48 hours, will likely be able to transition to PO when ready for discharge. Given the patient's extensive list of antibiotic allergies , we are limited as to what antibiotics we will be able to use. She had severe vomiting with Macrobid in the past and has allergies to Keflex, Cipro, Clindamycin, Bactrim, Levaquin, and Zithromax. Continue to monitor renal function and dose-adjust antibiotics. Duration of treatment depends on the clinical picture. (3) UTI (urinary tract infection) Status: Acute Assessment and plan: Causative organism E. coli. Patient has had multiple recurrent UTIs in the past and follows with [facility]. She has not been on any prophylactic antibiotics in the past. Continue antibiotics as above. Qualifiers: Urinary tract infection type: acute cystitis Hematuria presence: without hematuria Qualified Code(s): N30.00 - Acute cystitis without hematuria (4) Intractable nausea and vomiting Status: Resolved Assessment and plan: Likely secondary to bacteremia and UTI. Resolved. Qualifiers: Vomiting type: cyclical vomiting Qualified Code(s): G43.A1 - Cyclical vomiting, intractable (5) Acute diarrhea Status: Acute Assessment and plan: Patient reports 1-2 loose stools per day. Likely secondary to antibiotic use. Continue probiotic and encourage the patient to eat yogurt while taking antibiotics. Continue supportive care. (6) Elevated troponin Status: Acute (7) COPD (chronic obstructive pulmonary disease) Status: Chronic Qualifiers: COPD type: emphysema Emphysema type: centrilobular Qualified Code(s): J43.2 - Centrilobular emphysema (8) Hypertension Status: Chronic Qualifiers: Hypertension type: essential hypertension Qualified Code(s): I10 - Essential (primary) hypertension Infectious Disease HPI - Data of Consult Patient: known to practice within the last 3 years Consult date: 10/03/16 Requesting Physician: Wil Hernadez DO Primary Care Provider: Nely Montelongo MD - Consult Narrative Reason for consult: E. coli bacteremia/UTI History of present illness: Ms. Jones is a 86 year old female with an extensive past medical history including asthma, COPD, hypertension, hyperlipidemia, fibromyalgia, irritable bowel syndrome, and recurrent UTIs. The patient was admitted to the hospital September 29 for elevated troponin and acute gastroenteritis. We are consulted October 03, 2016 for further evaluation and treatment recommendations regarding Escherichia coli bacteremia and UTI. The patient is an 86-year-old female with past medical history as stated above. The patient is known to the infectious disease service as we have been consulted on her case in the past. The patient was last seen in our office in July 2015. She was treated for recurrent UTI with oral fosfomycin. The patient states that she felt well after that treatment, but did subsequently develop recurrent UTI after that. The patient's extensive allergy list makes her case challenging. She tells me that on the day of admission, she be again to develop severe nausea and vomiting and diarrhea and was unable to keep anything down. She also reports some subjective fevers and chills. Upon arrival to the ER, the patient was tachycardic and hypertensive. She was afebrile. Laboratory studies revealed a mild leukocytosis with neutrophilic predominance. Urinalysis obtained in the ER was positive for pyuria and culture grew out Escherichia coli that is pansensitive. CT abdomen and pelvis was completed that showed diverticulosis. Chest x-ray showed a possible mild pneumonia versus partial atelectasis. Blood cultures were obtained 2 sets in the emergency department grew out Escherichia coli as well. Repeat cultures done on October 01 were +2 out of 2 sets for Escherichia coli. Additional cultures drawn October 02 are currently no growth to date 2 sets. Stool was sent for PCR and was negative. The patient was started on empiric Zosyn. She did receive a couple days of doxycycline for possible pneumonia. Currently, the patient is on IV Zosyn. We've asked to evaluate and make further recommendations. During my exam today the patient endorses a history as stated above. He reports a 24-hour history of nausea, vomiting, diarrhea and fevers on the day of admission. She reports some headache as well. She denies any neck pain. She denies any congestion, earache, or sore throat. She denies chest pain, shortness of breath, or cough that is out of the ordinary for her. She denied any abdominal pain. She reports that her urine chronically appears infected and cloudy. She denied any dysuria, but does report urinary frequency, which is common for her. She reports chronic back pain, but denied any flank pain. She denies any hematuria. She denied pain in any of her extremities. She reports that since admission her symptoms have resolved. She states that her urine is really cleared up. A 10 point review of systems was complete and is otherwise essentially negative except as mentioned above. CC: Wil Hernadez, DO Past Med Surg Social Fam HX - Past Medical History Attestation: Yes The following information was validated with the patient. Source: patient, old records reviewed, nursing notes reviewed Medical history: arthritis (Osteoarthritis. DDD/DJD cervical spine. DDD/DJD lumbar spine. Postlaminectomy syndrome, lumbar. Lumbar spondylosis. Occipital neuralgia.), asthma, cancer (History of skin cancer. History of squamous cell carcinoma of the skin.), COPD (YONNY. Chronic sinusitis.), fibromyalgia, GERD, GI bleed (Irritable bowel syndrome with diarrhea. Diverticulosis coli.), hypertension, osteoporosis, renal disease (History of MRSA vaginitis. History of endometriosis.), thyroid disease (Hyperthyroidism.) , other (Hyperuricemia. Gout. Steroid responsive dermatitis. Tinea shon. Chronic pain syndrome. Peripheral neuropathy.) Psychiatric history: anxiety, depression, other - Past Surgical History Surgical History: cancer surgery (Parathyroid adenoma resection. Excision of squamous cell carcinoma of the skin.), hysterectomy, knee replacement (Left and right knee replacements.), orthopedic, other (C3 C4 C4 C5 C5 C6 nerve root radiofrequency ablation procedures.), sinus surgery, STEPH/BSO, other (Back surgery, call and lumbar. Colonoscopy-polypectomy. EGD. Implanted nerve stimulator trial.), arthroscopy (Left and right knee arthroscopic surgery.) - Social History Smoking Status: Never smoker Smokeless Tobacco Status: No Alcohol use: none Drug use: none Occupational status: retired Current living situation: Home, With Family Activity Level: Independent ambulation Recent Out of Country Travel Within the Last 8 Weeks: No Exposure or Possible Exposure to Illness During Travel: No Infectious Disease-CN:Meds Albuterol Sulfate [Ventolin Hfa] 2 puff IH Q4H PRN 09/30/16 [History] Allopurinol [Zyloprim] 300 mg PO DAILY 09/30/16 [History] Alprazolam [Xanax 0.25 MG Tablet] 0.25 mg PO HS 09/30/16 [History] Amitriptyline [Elavil] 25 mg PO HS 09/30/16 [History] Budesonide/Formoterol 160/4.5 [Symbicort 160/4.5] 2 puff IH BIDR 09/30/16 [ History] Carvedilol [Coreg] 3.125 mg PO BIDWM 09/30/16 [History] Cetirizine HCl [Zyrtec] 10 mg PO DAILY 09/30/16 [History] Escitalopram [Lexapro] 20 mg PO DAILY 09/30/16 [History] FluocinoNIDE 0.05% CRM [Lidex] 1 appl TP BID 09/30/16 [History] Fluticasone Propionate Nasal [Flonase] 100 mcg NS DAILY 09/30/16 [History] Gabapentin [Neurontin] 800 mg PO TID 09/30/16 [History] HYDROcodone/Acet 10/325 mg [[place] 10-325 mg] 1 tab PO BID PRN 09/30/16 [History] Lisinopril 30 mg PO DAILY 09/30/16 [History] Methimazole 30 mg PO DAILY 09/30/16 [History] Mv-Mn/FA/Vit K1/Lycop/Lut/Zeax [Ocuvite Eye + Multi Tablet] 1 tab PO DAILY 09/30 [History] Nystatin [Nystatin Suspension] 5 ml PO QID 09/30/16 [History] Omeprazole [PriLOSEC] 40 mg PO DAILY 09/30/16 [History] Allergies adhesive tape Allergy (Verified 09/30/16 10:57) Hives cephalexin [From Keflex] Allergy (Verified 09/30/16 10:57) Hives ciprofloxacin [From Cipro] Allergy (Verified 09/30/16 10:57) Hives clindamycin Allergy (Verified 05/06/15 12:15) Anaphylaxis Erythromycin Base Allergy (Verified 05/06/15 12:15) Hives latex Allergy (Verified 09/30/16 10:57) Hives levofloxacin [From Levaquin] Allergy (Verified 05/06/15 12:15) Anaphylaxis Methadone Allergy (Verified 05/06/15 12:15) Anaphylaxis sulfamethoxazole [From Bactrim] Allergy (Verified 05/06/15 12:15) Hives trimethoprim [From Bactrim] Allergy (Verified 05/06/15 12:15) Hives azithromycin [From Zithromax] Adverse Reaction (Verified 09/30/16 10:57) Gastrointestinal Upset nitrofurantoin [From Macrobid] Adverse Reaction (Verified 05/06/15 12:15) Vomiting All systems: reviewed and no additional remarkable complaints except as stated Exam - Constitutional Vitals: Temp Pulse Resp BP Pulse Ox 97.8 F 55 18 175/71 100 10/03/16 10:56 10/03/16 10:56 10/03/16 10:56 10/03/16 10:56 10/03/16 10:56 General appearance: average body habitus, cooperative, no acute distress - Head Head exam: Present: atraumatic, normal inspection, normocephalic - Eye Eye exam: Present: EOMI, normal appearance, PERRL Pupils: Present: normal accommodation Additional comments: No subconjunctival hemorrhage noted. - ENT ENT exam: Present: mucous membranes moist - Neck Neck exam: Present: normal inspection. Absent: lymphadenopathy - Respiratory Respiratory exam: Present: rhonchi (throughout), wheezes (coarse, expiratory LLL ). Absent: rales, respiratory distress - Cardiovascular Cardiovascular exam: Present: RRR, +S1, +S2 - GI/Abdominal GI/Abdominal exam: Present: normal bowel sounds, soft. Absent: distended, tenderness - Extremities Exam Extremities exam: Present: normal inspection. Absent: joint swelling, pedal edema, tenderness - Back Exam Back exam: Present: normal inspection. Absent: CVA tenderness (L), CVA tenderness (R) - Neurological Exam Neurological exam: Present: alert, oriented X3, no focal deficits - Psychiatric Psychiatric exam: Present: normal affect, normal mood - Skin Skin exam: Present: dry, intact, normal color, warm Infectious Disease CN: Results - Labs CBC & Chem 7: 10/02/16 04:35 10/02/16 04:35 Cultures: Cultures 10/01/16 12:05 Blood Culture - Final Peripheral Venipuncture Escherichia coli 10/01/16 12:00 Blood Culture - Final Peripheral Venipuncture Escherichia coli 10/02/16 05:20 Blood Culture - Preliminary Peripheral Venipuncture No growth. 10/02/16 05:20 Blood Culture - Preliminary Peripheral Venipuncture No growth. 09/29/16 22:36 Blood Culture - Final Peripheral Venipuncture Escherichia coli 09/29/16 22:10 Blood Culture - Final Peripheral Venipuncture Escherichia coli 09/29/16 22:30 Urine Culture - Final Urine,Clean Catch Escherichia coli 09/29/16 22:10 Influenza Types A,B Antigen (SHOBHA) - Final Nasopharyngeal Serology: Serology 10/01/16 10/01/16 09/30/16 Range/Units 15:40 12:00 10:07 Urine Color (Yellow) Urine Clarity (Clear) Urine pH (5.0-8.0) pH Units Ur Specific Sharon (1.010-1.025) Urine Protein (Neg-Trace) mg/dL Urine Glucose (UA) (Normal) mg/dL Urine Ketones (Negative) mg/dL Urine Blood (Negative) Urine Nitrite (Negative) Urine Bilirubin (Negative) Urine Urobilinogen (Normal) mg/dL Ur Leukocyte Esterase (Negative) Urine Microscopic RBC (0-3) per hpf Urine Microscopic WBC (0-3) per hpf Ur Squamous Epith Cells (None-Few) per lpf Urine Bacteria (None-Few) per hpf Hyaline Casts (None-Few) per lpf Urine Yeast Ur Culture Indicated? (NO) Nasal Screen MRSA (PCR) Positive A (Negative) Stl C. cayetanensis PCR Not detected (Not detect) Stool Rotavirus A PCR Not detected (Not detect) Stl Adenov F 40/41 PCR Not detected (Not detect) Stool Astrovirus (PCR) Not detected (Not detect) Stool Campylobacter PCR Not detected (Not detect) Stl C. diff Tox A/B PCR Not performed (Not detect) Stool Cryptosporidium PCR Not detected (Not detect) Stl Sh Tox Pr E STEC PCR Not detected (Not detect) Stool E coli O157 PCR Not detected (Not detect) Stl Enterotoxigenic E PCR Not detected (Not detect) Stool EPEC (PCR) Not detected (Not detect) Stool EAEC (PCR) Not detected (Not detect) Stl E. histolytica PCR Not detected (Not detect) Stool Giardia Lamblia PCR Not detected (Not detect) Stool Salmonella PCR Not detected (Not detect) Stool Sapovirus (PCR) Not detected (Not detect) Stl P. shigelloides PCR Not detected (Not detect) Stl Shigella/EIEC PCR Not detected (Not detect) St Y.enterocolitica PCR Not detected (Not detect) Stool Vibrio (PCR) Not detected (Not detect) Stl Vibrio cholerae PCR Not detected (Not detect) Stl Norovirus GI/GII PCR Not detected (Not detect) Stl GI Panel (PCR) Com See below A. baumannii (PCR) Not Detected (Not Detect) Maude albicans (PCR) Not Detected (Not Detect) C. glabrata (PCR) Not Detected (Not Detect) C. krusei (PCR) Not Detected (Not Detect) C. parapsilosis (PCR) Not Detected (Not Detect) C. tropicalis (PCR) Not Detected (Not Detect) Enterobacteriac sp PCR DETECTED A (Not Detect) E. cloacae complex PCR Not Detected (Not Detect) Enterococcus sp PCR Not Detected (Not Detect) E. coli (PCR) DETECTED A (Not Detect) H. influenzae (PCR) Not Detected (Not Detect) Klebsiella oxytoca PCR Not Detected (Not Detect) Klebsiella pneumoniae Not Detected (Not Detect) List. monocytogenes PCR Not Detected (Not Detect) N. meningitidis (PCR) Not Detected (Not Detect) Proteus species (PCR) Not Detected (Not Detect) Serratia marcescens PCR Not Detected (Not Detect) Staphylococcus sp PCR Not Detected (Not Detect) Staph aureus (PCR) Not Detected (Not Detect) mecA-Methicil Res Gene N/A (Not Detect) Streptococcus sp PCR Not Detected (Not Detect) Group A Strep DNA Not Detected (Not Detect) Group B Strep (PCR) Not Detected (Not Detect) Strep pneumoniae (PCR) Not Detected (Not Detect) P. aeruginosa (PCR) Not Detected (Not Detect) Noel/B-Vanco Res Genes N/A (Not Detect) KPC (blaKPC) Detect PCR Not Detected (Not Detect) 09/29/16 09/29/16 Range/Units 22:30 22:10 Urine Color Yellow (Yellow) Urine Clarity Cloudy A (Clear) Urine pH 7.0 (5.0-8.0) pH Units Ur Specific Sharon 1.015 (1.010-1.025) Urine Protein 30 H (Neg-Trace) mg/dL Urine Glucose (UA) Normal (Normal) mg/dL Urine Ketones Negative (Negative) mg/dL Urine Blood Moderate H (Negative) Urine Nitrite Positive A (Negative) Urine Bilirubin Negative (Negative) Urine Urobilinogen Normal (Normal) mg/dL Ur Leukocyte Esterase Large H (Negative) Urine Microscopic RBC 3-5 H (0-3) per hpf Urine Microscopic WBC TNTC H (0-3) per hpf Ur Squamous Epith Cells Moderate H (None-Few) per lpf Urine Bacteria Many H (None-Few) per hpf Hyaline Casts None Seen (None-Few) per lpf Urine Yeast Test Not Performed Ur Culture Indicated? YES A (NO) Nasal Screen MRSA (PCR) (Negative) Stl C. cayetanensis PCR (Not detect) Stool Rotavirus A PCR (Not detect) Stl Adenov F 40/41 PCR (Not detect) Stool Astrovirus (PCR) (Not detect) Stool Campylobacter PCR (Not detect) Stl C. diff Tox A/B PCR (Not detect) Stool Cryptosporidium PCR (Not detect) Stl Sh Tox Pr E STEC PCR (Not detect) Stool E coli O157 PCR (Not detect) Stl Enterotoxigenic E PCR (Not detect) Stool EPEC (PCR) (Not detect) Stool EAEC (PCR) (Not detect) Stl E. histolytica PCR (Not detect) Stool Giardia Lamblia PCR (Not detect) Stool Salmonella PCR (Not detect) Stool Sapovirus (PCR) (Not detect) Stl P. shigelloides PCR (Not detect) Stl Shigella/EIEC PCR (Not detect) St Y.enterocolitica PCR (Not detect) Stool Vibrio (PCR) (Not detect) Stl Vibrio cholerae PCR (Not detect) Stl Norovirus GI/GII PCR (Not detect) Stl GI Panel (PCR) Com A. baumannii (PCR) Not Detected (Not Detect) Maude albicans (PCR) Not Detected (Not Detect) C. glabrata (PCR) Not Detected (Not Detect) C. krusei (PCR) Not Detected (Not Detect) C. parapsilosis (PCR) Not Detected (Not Detect) C. tropicalis (PCR) Not Detected (Not Detect) Enterobacteriac sp PCR DETECTED A (Not Detect) E. cloacae complex PCR Not Detected (Not Detect) Enterococcus sp PCR Not Detected (Not Detect) E. coli (PCR) DETECTED A (Not Detect) H. influenzae (PCR) Not Detected (Not Detect) Klebsiella oxytoca PCR Not Detected (Not Detect) Klebsiella pneumoniae Not Detected (Not Detect) List. monocytogenes PCR Not Detected (Not Detect) N. meningitidis (PCR) Not Detected (Not Detect) Proteus species (PCR) Not Detected (Not Detect) Serratia marcescens PCR Not Detected (Not Detect) Staphylococcus sp PCR Not Detected (Not Detect) Staph aureus (PCR) Not Detected (Not Detect) mecA-Methicil Res Gene N/A (Not Detect) Streptococcus sp PCR Not Detected (Not Detect) Group A Strep DNA Not Detected (Not Detect) Group B Strep (PCR) Not Detected (Not Detect) Strep pneumoniae (PCR) Not Detected (Not Detect) P. aeruginosa (PCR) Not Detected (Not Detect) Noel/B-Vanco Res Genes N/A (Not Detect) KPC (blaKPC) Detect PCR Not Detected (Not Detect) - VTE Documentation of Mechanical Device: Graduated compression elastic hosiery Consult Discharge Plan - Plan Referrals: Nely Montelongo MD [Primary Care Provider] - 10/09/16 10:20 am ()
[2016-10-03] MEDS: Lisinopril 20 MG TABLET PO SCH (13:02)
[2016-10-03 13:41] LABS: Basophils % 0.4 %; Eosinophils # 0.1 K/mcL (0.0-0.6); Eosinophils % 1.3 %; Hematocrit 35.5 % (35.3-44.9); Hemoglobin 11.2 g/dL (11.5-15.4); Immature Granulocytes % 0.4 % (0-4); Lymphocytes # 1.7 K/mcL (0.6-4.6); Lymphocytes % 17.3 %; Mean Corpuscular HGB Conc 31.5 g/dL (31.6-35.5); Mean Corpuscular Hemoglobin 27.3 pg (28.0-33.3); Mean Corpuscular Volume 86.4 fL (83.0-100.0); Mean Platelet Volume 11.5 fL (9.4-12.4); Monocytes # 0.6 K/mcL (0.0-1.3); Monocytes % 5.9 %; Neutrophils # 7.3 K/mcL (1.6-8.9); Platelet Count 198 K/mcL (140-400); Red Blood Count 4.11 M/mcL (3.82-4.97); Segmented Neutrophils % 74.7 %
[2016-10-03 13:50] LABS: BUN/Creatinine Ratio 15 (6-26); Blood Urea Nitrogen 13 mg/dL (7-20); Calcium 9.6 mg/dL (8.6-10.8); Carbon Dioxide 24 mEq/L (19-29); Chloride 103 mEq/L (98-109); Glucose 108 mg/dL (70-99); Osmolality,Calculated 285 (280-300); Potassium 3.3 mEq/L (3.5-4.5); Sodium 137 mEq/L (136-145); eGFR For African Americans > 60 (> 60); eGFR For Non-African Americans > 60 (> 60)
--- NOTE | 2016-10-03 16:18 | Internal Med Progress Note ---
<Gabriela Osorio - Last Filed: 10/03/16 16:15> Date of Encounter: 10/03/16 Time of Encounter: 16:16 - Assessment and plan (1) Bacteremia due to Gram-negative bacteria Current Visit: Yes Status: Acute Assessment and plan: 09/29 blood culture with gram negative rods and positive for roach sensitive E. coli likely related to UTI. 10/01 blood culture with gram negative rods and positive for roach sensitive E. Coli likely secondary to UTI 10/02 blood culture with no growth x 24 hours Patient is afebrile, WBC continues to decrease Contineu antibiotics zosyn for UTI. ID following, appreciate recommendations and expertise. (2) UTI (urinary tract infection) Current Visit: Yes Status: Acute Assessment and plan: Urine culture with roach sensitive E Coli. Continue treatment with zosyn. WBC decreasing, has normalized today. Patient afebrile. Patient follows with Dr. Harris outpatient. ID consulted, appreciate recommendations and expertise. Qualifiers: Urinary tract infection type: acute cystitis Hematuria presence: without hematuria Qualified Code(s): N30.00 - Acute cystitis without hematuria (3) LLL pneumonia Current Visit: Yes Status: Acute Assessment and plan: Continue treatment with doxycycline. Qualifiers: Pneumonia type: due to unspecified organism Qualified Code(s): J18.1 - Lobar pneumonia, unspecified organism (4) Hypertension Current Visit: Yes Status: Chronic Assessment and plan: Blood pressures remain elevated. JER present on admission likely secondary to UTi has since resolved, patient has returned to normal kidney function. Will resume home lisinopril. Will continue to monitor blood pressures. Qualifiers: Hypertension type: essential hypertension Qualified Code(s): I10 - Essential (primary) hypertension (5) Hypothyroid Current Visit: Yes Status: Chronic Assessment and plan: Continue home med. Qualifiers: Hypothyroidism type: acquired Qualified Code(s): E03.9 - Hypothyroidism, unspecified (6) COPD (chronic obstructive pulmonary disease) Current Visit: Yes Status: Chronic Assessment and plan: Chronic. Continue home meds. Qualifiers: COPD type: emphysema Emphysema type: centrilobular Qualified Code(s): J43.2 - Centrilobular emphysema (7) YONNY (obstructive sleep apnea) Current Visit: Yes Status: Chronic Assessment and plan: Continue home regimen. (8) Anxiety Current Visit: Yes Status: Acute Assessment and plan: Patient was on lexapro as outpatient which has been held since admission. Will restart lexapro today. - Subjective Interval history: Patient seen and examined. Patient afebrile overnight. Patient states she is feeling significantly improved from when she arrived at the hospital. She denies any issues with urination, hematuria, dysuria or flank pain. She is tolerating diet with no nausea of vomiting. She remains anxious to get home. She has no other acute concerns or complaints today. - Constitutional Vitals: Temp Pulse Resp BP Pulse Ox 97.8 F 55 18 175/71 100 10/03/16 10:56 10/03/16 10:56 10/03/16 10:56 10/03/16 10:56 10/03/16 10:56 General appearance: Present: A&O X 3, pleasant, answers questions appropriately - Head Head exam: Present: atraumatic - Eye Eye exam: Present: normal appearance - ENT ENT exam: Present: mucous membranes moist, normal external ear exam - Respiratory Respiratory exam: Present: CTAB. Absent: rales, rhonchi, stridor, wheezes - Cardiovascular Cardiovascular exam: Present: RRR, +S1, +S2. Absent: clicks, diastolic murmur, gallop, rubs, systolic murmur - GI/Abdominal GI/Abdominal exam: Present: normal bowel sounds, soft. Absent: distended, guarding, rebound, rigid, tenderness - Extremities Exam Extremities exam: Present: normal capillary refill. Absent: pedal edema Internal Medicine: Result - Labs CBC & Chem 7: 10/03/16 12:42 10/03/16 12:42 Labs: Short CBC 10/03/16 Range/Units 12:42 WBC 9.8 (4.3-11.1) K/mcL Hgb 11.2 L (11.5-15.4) g/dL Hct 35.5 (35.3-44.9) % Plt Count 198 (140-400) K/mcL Neutrophils # 7.3 (1.6-8.9) K/mcL BMP 10/03/16 12:42 Sodium 137 Potassium 3.3 L Chloride 103 Carbon Dioxide 24 BUN 13 Creatinine 0.89 Glucose 108 H Calcium 9.6 - VTE Documentation of Mechanical Device: Graduated compression elastic hosiery Consult Discharge Plan - Plan Referrals: Nely Montelongo MD [Primary Care Provider] - 10/09/16 10:20 am () <Wil Hernadez - Last Filed: 10/03/16 17:10> - Assessment and plan (1) Sepsis Current Visit: Yes Status: Acute Qualifiers: Sepsis type: Escherichia coli Qualified Code(s): A41.51 - Sepsis due to Escherichia coli [E. coli] (2) UTI (urinary tract infection) Current Visit: Yes Status: Acute Qualifiers: Urinary tract infection type: acute cystitis Hematuria presence: without hematuria Qualified Code(s): N30.00 - Acute cystitis without hematuria (3) COPD (chronic obstructive pulmonary disease) Current Visit: Yes Status: Chronic Qualifiers: COPD type: emphysema Emphysema type: centrilobular Qualified Code(s): J43.2 - Centrilobular emphysema (4) YONNY (obstructive sleep apnea) Current Visit: Yes Status: Chronic (5) Hypertension Current Visit: Yes Status: Chronic Qualifiers: Hypertension type: essential hypertension Qualified Code(s): I10 - Essential (primary) hypertension (6) Hypothyroid Current Visit: Yes Status: Chronic Qualifiers: Hypothyroidism type: acquired Qualified Code(s): E03.9 - Hypothyroidism, unspecified (7) Irritable bowel syndrome (IBS) Current Visit: Yes Status: Chronic Qualifiers: Irritable bowel syndrome type: with diarrhea Qualified Code(s): 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 (8) LLL pneumonia Current Visit: Yes Status: Ruled-out Qualifiers: Pneumonia type: due to unspecified organism Qualified Code(s): J18.1 - Lobar pneumonia, unspecified organism - Constitutional Vitals: Temp Pulse Resp BP Pulse Ox 99.1 F 91 18 194/103 96 10/03/16 16:24 10/03/16 16:24 10/03/16 16:24 10/03/16 16:24 10/03/16 16:24 Internal Medicine: Result - Labs CBC & Chem 7: 10/03/16 12:42 10/03/16 12:42 Labs: Short CBC 10/03/16 Range/Units 12:42 WBC 9.8 (4.3-11.1) K/mcL Hgb 11.2 L (11.5-15.4) g/dL Hct 35.5 (35.3-44.9) % Plt Count 198 (140-400) K/mcL Neutrophils # 7.3 (1.6-8.9) K/mcL BMP 10/03/16 12:42 Sodium 137 Potassium 3.3 L Chloride 103 Carbon Dioxide 24 BUN 13 Creatinine 0.89 Glucose 108 H Calcium 9.6 - Attending Attestation I examined this patient and my medical decision-making was reviewed with the Resident Physician on 10/03/16. I agree with the documented findings, disposition and treatment plan as described except to the extent set forth below. Ms. Jones is currently admitted for acute E coli UTI and bacteremia. She remains moderate to high risk due to potential for worsening infection and clinical status. Ms. Jones feels somewhat better today. No pain. Still with some cough. Bowels OK. Wants to go home but still needs IV abx. Exam Alert. Comfortable Heart reg Moist cough - no wheeze I/P 1. E. coli UTI and bacteremia 2. Cough - no pneumonia on CXR 3. Sepsis - improved Further diagnoses and plan as above.
[2016-10-03] MEDS: *HR* Enoxaparin 40 MG/0.4 ML SYRINGE SQ SCH (17:24)
[2016-10-04] MEDS: Piperacillin/Tazobactam 3.375 GM in D5% in Water (Mini-Bag+) 100 ML IVPB SCH ×2 (03:37→11:24)
[2016-10-04] MEDS: Ipratropium/Albuterol Neb 3 ML IH SCH ×2 (04:29→11:16)
[2016-10-04] MEDS: *HR* HYDROcodone/Acet 10/325 mg TABLET PO PRN (06:23)
[2016-10-04] MEDS: Lisinopril 20 MG TABLET PO SCH (06:23)
[2016-10-04] MEDS: Lactobacillus 1 EACH CAP.SPRINK PO SCH (08:45)
[2016-10-04 10:17] VITALS: BP 165/91
--- NOTE | 2016-10-04 10:23 | Internal Med Progress Note ---
<Gabriela Osorio - Last Filed: 10/04/16 10:21> Date of Encounter: 10/04/16 Time of Encounter: 10:21 - Assessment and plan (1) Bacteremia due to Gram-negative bacteria Status: Acute Assessment and plan: 09/29 blood culture with gram negative rods and positive for roach sensitive E. coli likely related to UTI. 10/01 blood culture with gram negative rods and positive for roach sensitive E. Coli likely secondary to UTI 10/02 blood culture with no growth x 24 hours Patient is afebrile, WBC previously normalized. Continue antibiotics zosyn for UTI. Day 5 of treatment. ID consulted. recommended waiting until 10/02 blood culture has no growth for 48 hours before further determination of antibiotics. Will await further recommendations on oral or IV antibiotics to go home. (2) UTI (urinary tract infection) Status: Acute Assessment and plan: Urine culture with roach sensitive E Coli. Continue treatment with zosyn. Day 5 of treatment. WBC previously normalized. Patient afebrile. Patient follows with Dr. Harris outpatient. ID consulted, recommended waiting until 10/02 blood culture was no growth for 48 hours before determination of final antibiotic coverage. Will continue to follow for further recommendations on antibiotics for oral or IV to enable patient to go home. Qualifiers: Urinary tract infection type: acute cystitis Hematuria presence: without hematuria Qualified Code(s): N30.00 - Acute cystitis without hematuria (3) LLL pneumonia Status: Ruled-out Assessment and plan: Continue treatment with doxycycline. Qualifiers: Pneumonia type: due to unspecified organism Qualified Code(s): J18.1 - Lobar pneumonia, unspecified organism (4) Hypertension Status: Chronic Assessment and plan: Blood pressures remain elevated. JER present on admission likely secondary to UTI has since resolved, patient has returned to normal kidney function. Continue home blood pressure medications. Will continue to monitor blood pressures. Qualifiers: Hypertension type: essential hypertension Qualified Code(s): I10 - Essential (primary) hypertension (5) Hypothyroid Status: Chronic Assessment and plan: Continue home med. Qualifiers: Hypothyroidism type: acquired Qualified Code(s): E03.9 - Hypothyroidism, unspecified (6) COPD (chronic obstructive pulmonary disease) Status: Chronic Assessment and plan: Chronic. Continue home meds. Qualifiers: COPD type: emphysema Emphysema type: centrilobular Qualified Code(s): J43.2 - Centrilobular emphysema (7) YONNY (obstructive sleep apnea) Status: Chronic Assessment and plan: Continue home regimen. (8) Anxiety Status: Acute Assessment and plan: Patient was on lexapro as outpatient. Lexapro restarted yesterday. - Subjective Interval history: Patient seen and examined. Patient afebrile overnight. Patient states she is still continuing to not have any issues with urination, hemturia, dysuria or flank pain. She is tolerating general diet with no difficulty. She remains anxious to get home and states one way or another she is leaving hospital today. She has no other acute complaints or concerns at this time. - Constitutional Vitals: Temp Pulse Resp BP Pulse Ox 97.8 F 97 16 165/91 94 L 10/04/16 10:12 10/04/16 10:12 10/04/16 10:12 10/04/16 10:12 10/04/16 10:12 General appearance: Present: A&O X 3, pleasant, answers questions appropriately - Head Head exam: Present: atraumatic, normocephalic - Eye Eye exam: Present: normal appearance - ENT ENT exam: Present: mucous membranes moist, normal external ear exam - Neck Neck exam general surgery: Present: supple, trachea midline - Respiratory Respiratory exam: Present: CTAB. Absent: rales, respiratory distress, rhonchi, stridor, wheezes - Cardiovascular Cardiovascular exam: Present: RRR, +S1, +S2. Absent: clicks, diastolic murmur, gallop, rubs, systolic murmur - GI/Abdominal GI/Abdominal exam: Present: normal bowel sounds, soft. Absent: distended, guarding, rebound, tenderness - Extremities Exam Extremities exam: Present: normal capillary refill. Absent: pedal edema Internal Medicine: Result - Labs CBC & Chem 7: 10/03/16 12:42 10/03/16 12:42 Labs: Short CBC 10/03/16 Range/Units 12:42 WBC 9.8 (4.3-11.1) K/mcL Hgb 11.2 L (11.5-15.4) g/dL Hct 35.5 (35.3-44.9) % Plt Count 198 (140-400) K/mcL Neutrophils # 7.3 (1.6-8.9) K/mcL BMP 10/03/16 12:42 Sodium 137 Potassium 3.3 L Chloride 103 Carbon Dioxide 24 BUN 13 Creatinine 0.89 Glucose 108 H Calcium 9.6 - VTE Documentation of Mechanical Device: Graduated compression elastic hosiery Consult Discharge Plan - Plan Instructions: Amoxicillin/Clavulanate Potassium (By mouth), Urinary Tract Infection in Women (DC), Gastroenteritis (DC) Referrals: Nely Montelongo MD [Primary Care Provider] - 10/09/16 10:20 am () Prescriptions: Amoxicillin/Clavulanate [Augmentin] 875 mg PO BIDWM #21 tablet <Wil Hernadez - Last Filed: 10/04/16 17:19> - Assessment and plan (1) Sepsis Status: Acute Qualifiers: Sepsis type: Escherichia coli Qualified Code(s): A41.51 - Sepsis due to Escherichia coli [E. coli] (2) UTI (urinary tract infection) Status: Acute Qualifiers: Urinary tract infection type: acute cystitis Hematuria presence: without hematuria Qualified Code(s): N30.00 - Acute cystitis without hematuria (3) COPD (chronic obstructive pulmonary disease) Status: Chronic Qualifiers: COPD type: emphysema Emphysema type: centrilobular Qualified Code(s): J43.2 - Centrilobular emphysema (4) YONNY (obstructive sleep apnea) Status: Chronic (5) Hypertension Status: Chronic Qualifiers: Hypertension type: essential hypertension Qualified Code(s): I10 - Essential (primary) hypertension (6) Hypothyroid Status: Chronic Qualifiers: Hypothyroidism type: acquired Qualified Code(s): E03.9 - Hypothyroidism, unspecified (7) Irritable bowel syndrome (IBS) Status: Chronic Qualifiers: Irritable bowel syndrome type: with diarrhea Qualified Code(s): 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
--- NOTE | 2016-10-04 13:00 | Discharge Summary ---
Date of Encounter: 10/04/16 Time of Encounter: 12:00 - Discharge Diagnosis (1) Sepsis Priority: Primary Status: Acute Qualifiers: Sepsis type: Escherichia coli Qualified Code(s): A41.51 - Sepsis due to Escherichia coli [E. coli] (2) UTI (urinary tract infection) Priority: Primary Status: Acute Qualifiers: Urinary tract infection type: acute cystitis Hematuria presence: without hematuria Qualified Code(s): N30.00 - Acute cystitis without hematuria (3) COPD (chronic obstructive pulmonary disease) Priority: Secondary Status: Chronic Qualifiers: COPD type: emphysema Emphysema type: centrilobular Qualified Code(s): J43.2 - Centrilobular emphysema (4) YONNY (obstructive sleep apnea) Priority: Secondary Status: Chronic (5) Hypertension Priority: Secondary Status: Chronic Qualifiers: Hypertension type: essential hypertension Qualified Code(s): I10 - Essential (primary) hypertension (6) Hypothyroid Priority: Secondary Status: Chronic Qualifiers: Hypothyroidism type: acquired Qualified Code(s): E03.9 - Hypothyroidism, unspecified (7) Irritable bowel syndrome (IBS) Priority: Secondary Status: Chronic Qualifiers: Irritable bowel syndrome type: with diarrhea Qualified Code(s): 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 (8) LLL pneumonia Priority: Secondary Status: Ruled-out Qualifiers: Pneumonia type: due to unspecified organism Qualified Code(s): J18.1 - Lobar pneumonia, unspecified organism - Discharge Medications Prescriptions: Amoxicillin/Clavulanate [Augmentin] 875 mg PO BIDWM #21 tablet Home Medications: Albuterol Sulfate [Ventolin Hfa] 2 puff IH Q4H PRN 09/30/16 [History] Allopurinol [Zyloprim] 300 mg PO DAILY 09/30/16 [History] Alprazolam [Xanax 0.25 MG Tablet] 0.25 mg PO HS 09/30/16 [History] Amitriptyline [Elavil] 25 mg PO HS 09/30/16 [History] Budesonide/Formoterol 160/4.5 [Symbicort 160/4.5] 2 puff IH BIDR 09/30/16 [ History] Carvedilol [Coreg] 3.125 mg PO BIDWM 09/30/16 [History] Cetirizine HCl [Zyrtec] 10 mg PO DAILY 09/30/16 [History] Escitalopram [Lexapro] 20 mg PO DAILY 09/30/16 [History] FluocinoNIDE 0.05% CRM [Lidex] 1 appl TP BID 09/30/16 [History] Fluticasone Propionate Nasal [Flonase] 100 mcg NS DAILY 09/30/16 [History] Gabapentin [Neurontin] 800 mg PO TID 09/30/16 [History] HYDROcodone/Acet 10/325 mg [[place] 10-325 mg] 1 tab PO BID PRN 09/30/16 [History] Lisinopril 30 mg PO DAILY 09/30/16 [History] Methimazole 30 mg PO DAILY 09/30/16 [History] Mv-Mn/FA/Vit K1/Lycop/Lut/Zeax [Ocuvite Eye + Multi Tablet] 1 tab PO DAILY 09/30 [History] Nystatin [Nystatin Suspension] 5 ml PO QID 09/30/16 [History] Omeprazole [PriLOSEC] 40 mg PO DAILY 09/30/16 [History] Amoxicillin/Clavulanate [Augmentin] 875 mg PO BIDWM #21 tablet 10/04/16 [Rx] Lactobacillus [Culturelle] 1 each PO BID cap.[email or web address] 10/04/16 [Rx] Allergies/Adverse Reactions: Allergies adhesive tape Allergy (Verified 09/30/16 10:57) Hives cephalexin [From Keflex] Allergy (Verified 09/30/16 10:57) Hives ciprofloxacin [From Cipro] Allergy (Verified 09/30/16 10:57) Hives clindamycin Allergy (Verified 05/06/15 12:15) Anaphylaxis Erythromycin Base Allergy (Verified 05/06/15 12:15) Hives latex Allergy (Verified 09/30/16 10:57) Hives levofloxacin [From Levaquin] Allergy (Verified 05/06/15 12:15) Anaphylaxis Methadone Allergy (Verified 05/06/15 12:15) Anaphylaxis sulfamethoxazole [From Bactrim] Allergy (Verified 05/06/15 12:15) Hives trimethoprim [From Bactrim] Allergy (Verified 05/06/15 12:15) Hives azithromycin [From Zithromax] Adverse Reaction (Verified 09/30/16 10:57) Gastrointestinal Upset nitrofurantoin [From Macrobid] Adverse Reaction (Verified 05/06/15 12:15) Vomiting Date of admission: 10/02/16 16:53 Primary care physician: Nely Montelongo MD Discharging clinician: Wil Hernadez Anticipated date of discharge: 10/04/16 - Patient Status Disposition: Home, Self-Care Condition: Good Functional capacity at discharge: independent ambulation Overall status at discharge: patient is progressing back to baseline - Discharge Instructions Instructions: Amoxicillin/Clavulanate Potassium (By mouth), Urinary Tract Infection in Women (DC), Gastroenteritis (DC) Follow Up With: Nely Montelongo MD [Primary Care Provider] - 10/09/16 10:20 am () - Diet and Activity Activity: increase activity as tolerated Diet: advance to your usual diet Hospital course: Ms. Jones is a 86 year old female with hx of COPD presented to ED with cough and dyspnea. Evaluated and admitted with presumed pneumonia. Ms. Jones was admitted to [facility]. She was started on IV abx. She has multiple allergies/intolerances therefore placed on Zosyn. She tolerated this antibiotic. Her urine cultures were positive for E. coli and she was bacteremic. Second set of blood cultures were also positive. She was continued on IV abx. Another set of blood cx were negative (drawn 10/02). She continued to slowly improve. Her vitals were good and she had no fever. She was evaluated by ID due to 2nd set of positive blood cultures and was recommended for 14 days total of abx from negative blood cx date. On 10/04 she felt well. She was afebrile and BP was good. She was felt ready for d/c home on PO Augmentin. - Time Spent with Patient Total time spent providing and/or coordinating discharge services: 44 min - Constitutional Vitals: Temp Pulse Resp BP Pulse Ox 97.8 F 97 16 165/91 94 L 10/04/16 10:12 10/04/16 10:12 10/04/16 10:12 10/04/16 10:12 10/04/16 10:12 General appearance: Present: A&O X 3, pleasant, answers questions appropriately - Head Head exam: Present: normocephalic - Eye Eye exam: Present: conjuntiva pink - ENT ENT exam: Present: mucous membranes moist - Respiratory Respiratory exam: Present: decreased breath sounds, CTAB - Cardiovascular Cardiovascular exam: Present: RRR. Absent: tachycardia - GI/Abdominal GI/Abdominal exam: Present: soft. Absent: tenderness - Extremities Exam Extremities exam: Present: warm. Absent: pedal edema - Neurological Exam Neurological exam: Present: alert, oriented X3 - Psychiatric Psychiatric exam: Present: normal affect, normal mood - Skin Skin exam: Present: dry, warm - VTE Documentation of Mechanical Device: Graduated compression elastic hosiery
--- NOTE | 2016-10-04 13:04 | Infectious Disease Progress No ---
Date of Encounter: 10/04/16 Time of Encounter: 11:30 - Assessment and Plan (1) Sepsis Current Visit: Yes Status: Acute The patient had two SIRS criteria on admission. Likely secondary to bacteremia and UTI. Improved. WBC has normalized. Tachycardia has improved. Blood cultures drawn 09/29/16 were positive 2/2 sets for E. coli. Repeat blood cultures drawn 10/01/16 were positive 2/2 sets for E. coli as well. Additional set of blood cultures drawn 10/02/16 are NGTD x 2 sets. Qualifiers: Qualified Code(s): A41.51 - Sepsis due to Escherichia coli [E. coli] (2) Bacteremia due to Gram-negative bacteria Current Visit: Yes Status: Acute Causative organism roach-sensitive E. coli. Source likely UTI. Blood cultures drawn 09/29/16 were positive 2/2 sets for E. coli. Repeat blood cultures drawn 10/01/16 were positive 2/2 sets for E. coli as well. Additional blood cultures drawn 10/02/16 are NGTD x 2 sets. Discontinue Zosyn. Start Augmentin 875mg PO BID. Duration of treatment depends on the clinical picture, but would recommend completing a 14 day course of oral Augmentin. Given the patient's extensive list of antibiotic allergies, we are limited as to what antibiotics we will be able to use. She had severe vomiting with Macrobid in the past and has allergies to Keflex, Cipro, Clindamycin, Bactrim, Levaquin, and Zithromax. Treat through 10/12/16. Continue to monitor renal function and dose-adjust antibiotics. Duration of treatment depends on the clinical picture. (3) UTI (urinary tract infection) Current Visit: Yes Status: Acute Causative organism E. coli. Patient has had multiple recurrent UTIs in the past and follows with [facility]. She has not been on any prophylactic antibiotics in the past. Continue antibiotics as above. Qualifiers: Qualified Code(s): N30.00 - Acute cystitis without hematuria (4) Intractable nausea and vomiting Current Visit: Yes Status: Resolved Likely secondary to bacteremia and UTI. Resolved. Qualifiers: Qualified Code(s): G43.A1 - Cyclical vomiting, intractable (5) Acute diarrhea Current Visit: Yes Status: Acute Patient reports 1-2 loose stools per day. Likely secondary to antibiotic use. Continue probiotic and encourage the patient to eat yogurt while taking antibiotics. Continue supportive care. (6) Elevated troponin Current Visit: Yes Status: Acute (7) COPD (chronic obstructive pulmonary disease) Current Visit: Yes Status: Chronic Qualifiers: Qualified Code(s): J43.2 - Centrilobular emphysema (8) Hypertension Current Visit: Yes Status: Chronic Qualifiers: Qualified Code(s): I10 - Essential (primary) hypertension - Subjective Interval history: Patient seen and examined. No acute events noted overnight. Patient sitting up in the bedside chair during exam. Denies fevers or chills. Denies chest pain, shortness of breath, or cough. Denies nausea, vomiting, or diarrhea. States she is eating some and drinking fluids without a problem. Denies abdominal pain. States urine remains clear and denies urinary complaints. Complains of chronic neck and back pain. Denies oral thrush or skin lesions. Infect Dis PN-Objective Data - Labs CBC & Chem 7: 10/03/16 12:42 10/03/16 12:42 Labs: Laboratory Results - last 24 hr 10/03/16 10/03/16 12:42 12:42 WBC 9.8 RBC 4.11 Hgb 11.2 L Hct 35.5 MCV 86.4 MCH 27.3 L MCHC 31.5 L RDW 17.0 H Plt Count 198 MPV 11.5 Immature Gran % 0.4 Seg Neutrophils % 74.7 Lymphocytes % 17.3 Monocytes % 5.9 Eosinophils % 1.3 Basophils % 0.4 Neutrophils # 7.3 Lymphocytes # 1.7 Monocytes # 0.6 Eosinophils # 0.1 Basophils # 0.0 Sodium 137 Potassium 3.3 L Chloride 103 Carbon Dioxide 24 BUN 13 Creatinine 0.89 Est GFR ( Amer) > 60 Est GFR (Non-Af Amer) > 60 BUN/Creatinine Ratio 15 Glucose 108 H Calculated Osmolality 285 Calcium 9.6 Cultures: Cultures 10/01/16 12:00 Blood Culture - Final Peripheral Venipuncture Escherichia coli 10/01/16 12:05 Blood Culture - Final Peripheral Venipuncture Escherichia coli 10/02/16 05:20 Blood Culture - Preliminary Peripheral Venipuncture No growth. 10/02/16 05:20 Blood Culture - Preliminary Peripheral Venipuncture No growth. 09/29/16 22:36 Blood Culture - Final Peripheral Venipuncture Escherichia coli 09/29/16 22:10 Blood Culture - Final Peripheral Venipuncture Escherichia coli 09/29/16 22:30 Urine Culture - Final Urine,Clean Catch Escherichia coli 09/29/16 22:10 Influenza Types A,B Antigen (SHOBHA) - Final Nasopharyngeal Exam - Constitutional Vitals: Temp Pulse Resp BP Pulse Ox 97.8 F 97 16 165/91 94 L 10/04/16 10:12 10/04/16 10:12 10/04/16 10:12 10/04/16 10:12 10/04/16 10:12 General appearance: average body habitus, cooperative, no acute distress - Head Head exam: Present: atraumatic, normal inspection, normocephalic - Eye Eye exam: Present: EOMI, normal appearance, PERRL Pupils: Present: normal accommodation - ENT ENT exam: Present: mucous membranes moist - Neck Neck exam: Present: normal inspection - Respiratory Respiratory exam: Present: CTAB. Absent: rales, respiratory distress, rhonchi, wheezes - Cardiovascular Cardiovascular exam: Present: RRR, +S1, +S2 - GI/Abdominal GI/Abdominal exam: Present: normal bowel sounds, soft. Absent: distended, tenderness - Extremities Exam Extremities exam: Present: normal inspection. Absent: joint swelling, pedal edema, tenderness - Back Exam Back exam: Absent: CVA tenderness (L), CVA tenderness (R) - Neurological Exam Neurological exam: Present: alert, oriented X3, no focal deficits - Psychiatric Psychiatric exam: Present: normal affect, normal mood - Skin Skin exam: Present: dry, intact, normal color, warm - VTE Documentation of Mechanical Device: Graduated compression elastic hosiery Consult Discharge Plan - Plan Instructions: Amoxicillin/Clavulanate Potassium (By mouth), Urinary Tract Infection in Women (DC), Gastroenteritis (DC) Referrals: Nely Montelongo MD [Primary Care Provider] - 10/09/16 10:20 am () Prescriptions: Amoxicillin/Clavulanate [Augmentin] 875 mg PO BIDWM #21 tablet
== END 2016-10-04 13:33 | disposition home or self-care (01) | DRG 871 ==
LOC: EMEROO 21:52 → 2ANU 21:52
PROVIDERS: ADMIT Internal Medicine; ATTEND Internal Medicine

== ENCOUNTER 2019-04-15 18:16 | Inpatient (IN) ==
[2019-04-15] MEDS ORDERED: Ipratropium/Albuterol Neb 3 ML IH ONE (18:58)
[2019-04-15] MEDS ORDERED: predniSONE 20 MG TABLET PO ONE (18:59)
[2019-04-15] MEDS ORDERED: Albuterol 2.5 MG/3 ML NEBULIZER IH ONE (18:59)
[2019-04-15] MEDS ORDERED: Doxycycline 100 MG CAPSULE PO ONE (19:00)
[2019-04-15] MEDS ORDERED: Albuterol 2.5 MG/3 ML NEBULIZER IH STA (21:43)
[2019-04-15 22:17] LABS: BUN/Creatinine Ratio 23 (6-26); Blood Urea Nitrogen 36 mg/dL (8-23); Calcium 9.9 mg/dL (8.6-10.3); Carbon Dioxide 29 mEq/L (23-29); Chloride 101 mEq/L (98-107); Glucose 115 mg/dL (70-105); Osmolality,Calculated 291 (280-300); Potassium 4.5 mEq/L (3.5-5.1); Sodium 136 mEq/L (136-145); eGFR For African Americans 39 (> 60); eGFR For Non-African Americans 32 (> 60)
[2019-04-15 22:18] LABS: Troponin I < 0.03 ng/mL (< 0.04)
[2019-04-15 23:07] LABS: Basophils # 0.1 K/mcL (0.0-0.2); Basophils % 0.5 %; Eosinophils # 1.1 K/mcL (0.0-0.6); Eosinophils % 8.3 %; Hematocrit 37.8 % (35.3-44.9); Hemoglobin 11.6 g/dL (11.5-15.4); Immature Granulocytes % 0.3 % (0-4); Lymphocytes # 2.4 K/mcL (0.6-4.6); Lymphocytes % 18.7 %; Mean Corpuscular HGB Conc 30.7 g/dL (31.6-35.5); Mean Corpuscular Hemoglobin 28.9 pg (28.0-33.3); Mean Corpuscular Volume 94.3 fL (83.0-100.0); Mean Platelet Volume 10.6 fL (9.4-12.4); Monocytes # 0.9 K/mcL (0.0-1.3); Monocytes % 6.8 %; Neutrophils # 8.3 K/mcL (1.6-8.9); Platelet Count 257 K/mcL (140-400); Red Blood Count 4.01 M/mcL (3.82-4.97); Red Cell Distribution Width 14.9 % (11.5-14.5); Segmented Neutrophils % 65.4 %; White Blood Count 12.7 K/mcL (4.3-11.1)
[2019-04-15] MEDS ORDERED: Acetaminophen 325 MG TABLET PO ONE (23:43)
[2019-04-16] MEDS ORDERED: Albuterol 2.5 MG/3 ML NEBULIZER IH PRN (03:24)
[2019-04-16] MEDS ORDERED: Naloxone 0.4 MG/ML INJ IVP PRN (03:24)
[2019-04-16] MEDS: Ipratropium Neb 0.5 MG NEBULIZER IH SCH ×3 (04:31→11:05)
[2019-04-16] MEDS: Albuterol 2.5 MG/3 ML NEBULIZER IH SCH ×3 (04:31→11:05)
[2019-04-16 04:32] LABS: Bilirubin,Urine Negative (Negative); Blood,Urine Negative (Negative); Clarity,Urine Clear (Clear); Color,Urine Yellow (Yellow); Glucose,Urine (UA) Normal (Normal); Ketones,Urine Negative (Negative); Leukocyte Esterase,Urine Moderate (Negative); Nitrite,Urine Negative (Negative); Protein,Urine Negative (Neg-Trace); Specific Gravity,Urine 1.016 (1.010-1.025); Urobilinogen,Urine Normal (Normal)
[2019-04-16 04:34] LABS: Bacteria,Urine None Seen per hpf (None-Few); Hyaline Casts,Urine None Seen per lpf (None-Few); RBC,Urine 0-3 per hpf (0-3); Squamous Epithelial Cell,Urine Many per lpf (None-Few); WBC,Urine 30-50 per hpf (0-3)
[2019-04-16 04:44] LABS: Basophils % 0.2 %; Eosinophils % 0.1 %; Hematocrit 36.7 % (35.3-44.9); Hemoglobin 11.4 g/dL (11.5-15.4); Immature Granulocytes % 0.5 % (0-4); Lymphocytes # 0.7 K/mcL (0.6-4.6); Mean Corpuscular HGB Conc 31.1 g/dL (31.6-35.5); Mean Corpuscular Hemoglobin 28.7 pg (28.0-33.3); Mean Corpuscular Volume 92.4 fL (83.0-100.0); Mean Platelet Volume 10.5 fL (9.4-12.4); Monocytes # 0.1 K/mcL (0.0-1.3); Monocytes % 0.8 %; Neutrophils # 12.8 K/mcL (1.6-8.9); Platelet Count 234 K/mcL (140-400); Red Blood Count 3.97 M/mcL (3.82-4.97); Segmented Neutrophils % 93.4 %; White Blood Count 13.8 K/mcL (4.3-11.1)
[2019-04-16 04:49] LABS: INR 1.1; Prothrombin Time 12.2 Seconds (9.4-12.1)
[2019-04-16 05:03] LABS: Calcium 10.1 mg/dL (8.6-10.3); Chol/HDL Ratio 4.7 (0-4.9); Magnesium 1.9 mg/dL (1.6-2.6); Phosphorous 2.7 mg/dL (2.7-4.5); Potassium 4.4 mEq/L (3.5-5.1)
[2019-04-16] MEDS: *HR* Heparin 5,000 UNIT/ML VIAL SQ SCH ×3 (05:29→22:06)
[2019-04-16 06:00] LABS: Adenovirus Not Detected (Not Detect); Bordetella Pertussis Not Detected (Not Detect); Chlamydophila pneumoniae Not Detected (Not Detect); Coronavirus 229E Not Detected (Not Detect); Coronavirus HKU1 Not Detected (Not Detect); Coronavirus NL63 Not Detected (Not Detect); Coronavirus OC43 Not Detected (Not Detect); Human Metapneumovirus Not Detected (Not Detect); Human Rhinovirus/Enterovirus Not Detected (Not Detect); Influenza A Subtype 2009 H1 Not Detected (Not Detect); Influenza A Untypeable Not Detected (Not Detect); Influenza B Not Detected (Not Detect); Mycoplasma pneumoniae Not Detected (Not Detect); Parainfluenza Virus 1 Not Detected (Not Detect); Parainfluenza Virus 2 Not Detected (Not Detect); Parainfluenza Virus 3 Not Detected (Not Detect); Parainfluenza Virus 4 Not Detected (Not Detect); Respiratory Syncytial Virus Not Detected (Not Detect)
[2019-04-16 07:57] LABS: Estimated Average Glucose 148 mg/dl
[2019-04-16] MEDS: Furosemide 20 MG/2 ML VIAL IVP SCH ×2 (08:56→22:07)
[2019-04-16] MEDS ORDERED: Doxycycline 100 MG CAPSULE PO SCH (09:00)
[2019-04-16] MEDS ORDERED: predniSONE 20 MG TABLET PO SCH (09:00)
[2019-04-16] MEDS ORDERED: Ipratropium 1 PUFF INHALER IH PRN (12:07)
[2019-04-16] MEDS ORDERED: MethylPREDNISolone 40 MG/ML VIAL IVP ONE (14:00)
[2019-04-16] MEDS: Ipratropium/Albuterol Neb 3 ML IH SCH ×2 (15:17→22:31)
[2019-04-16] MEDS ORDERED: *HR* Dextrose 50 % in Water (Syg) 50 ML SYRINGE IVP PRN (15:55)
[2019-04-16] MEDS ORDERED: D5% in Water 1,000 ML IVC PRN (15:55)
[2019-04-16] MEDS ORDERED: Dextrose Gel 15 GM/37.5 ML TUBE PO PRN ×2 (15:55)
[2019-04-16] MEDS: Insulin LISPRO 300 UNITS/3 ML VIAL SQ SCH ×2 (18:23→22:07)
[2019-04-16] MEDS: Doxycycline 100 MG in 0.9 % Sodium Chloride Mini Bag 100 ML IVPB SCH (22:04)
[2019-04-16] MEDS: traZODone 50 MG TABLET PO SCH (22:05)
[2019-04-16] MEDS: Mirtazapine 15 MG TABLET PO SCH (22:07)
[2019-04-16] MEDS ORDERED: Ondansetron 4 MG/2 ML VIAL IVP ONE (22:30)
[2019-04-17] MEDS: *HR* HYDROcodone/Acet 10/325 mg TABLET PO PRN (01:26)
[2019-04-17] MEDS: Ipratropium/Albuterol Neb 3 ML IH SCH ×4 (03:40→21:22)
[2019-04-17] MEDS: *HR* Heparin 5,000 UNIT/ML VIAL SQ SCH ×3 (05:28→21:31)
[2019-04-17] MEDS ORDERED: MethylPREDNISolone 40 MG/ML VIAL IVP SCH (09:00)
[2019-04-17 09:13] LABS: Basophils % 0.1 %; Hematocrit 41.9 % (35.3-44.9); Immature Granulocytes % 0.6 % (0-4); Lymphocytes # 1.7 K/mcL (0.6-4.6); Lymphocytes % 8.4 %; Mean Corpuscular HGB Conc 31.5 g/dL (31.6-35.5); Mean Corpuscular Hemoglobin 29.3 pg (28.0-33.3); Mean Corpuscular Volume 93.1 fL (83.0-100.0); Mean Platelet Volume 10.5 fL (9.4-12.4); Monocytes # 0.9 K/mcL (0.0-1.3); Monocytes % 4.5 %; Neutrophils # 17.5 K/mcL (1.6-8.9); Platelet Count 294 K/mcL (140-400); Red Cell Distribution Width 15.3 % (11.5-14.5); Segmented Neutrophils % 86.4 %; White Blood Count 20.3 K/mcL (4.3-11.1)
[2019-04-17] MEDS: Insulin LISPRO 300 UNITS/3 ML VIAL SQ SCH ×4 (09:17→21:30)
[2019-04-17 09:18] LABS: Hemoglobin 13.2 g/dL (11.5-15.4)
[2019-04-17 09:26] LABS: Calcium 10.7 mg/dL (8.6-10.3); Potassium 3.9 mEq/L (3.5-5.1)
[2019-04-17] MEDS: methIMAzole 5 MG TABLET PO SCH (09:38)
[2019-04-17] MEDS: Furosemide 20 MG/2 ML VIAL IVP SCH (09:38)
[2019-04-17] MEDS: Multivit/Ca/Min/Fe/FA 1 TAB TABLET PO SCH (09:38)
[2019-04-17] MEDS: Fluticasone Propionate Nasal 50 MCG/SPRAY BOTTLE NS SCH ×2 (09:38→09:39)
[2019-04-17] MEDS: Doxycycline 100 MG in 0.9 % Sodium Chloride Mini Bag 100 ML IVPB SCH ×2 (09:39→21:29)
[2019-04-17] MEDS: Lisinopril 20 MG TABLET PO SCH (12:33)
[2019-04-17] MEDS: Mirtazapine 15 MG TABLET PO SCH (21:30)
[2019-04-17] MEDS: traZODone 50 MG TABLET PO SCH (21:30)
[2019-04-18] MEDS: *HR* HYDROcodone/Acet 10/325 mg TABLET PO PRN ×3 (02:00→17:27)
[2019-04-18] MEDS: Ipratropium/Albuterol Neb 3 ML IH SCH ×4 (04:08→22:08)
[2019-04-18 05:34] LABS: Basophils % 0.1 %; Hemoglobin 12.8 g/dL (11.5-15.4); Immature Granulocytes % 0.6 % (0-4); Lymphocytes # 2.5 K/mcL (0.6-4.6); Lymphocytes % 10.4 %; Mean Corpuscular HGB Conc 31.2 g/dL (31.6-35.5); Mean Corpuscular Hemoglobin 28.6 pg (28.0-33.3); Mean Corpuscular Volume 91.7 fL (83.0-100.0); Mean Platelet Volume 10.7 fL (9.4-12.4); Monocytes # 1.6 K/mcL (0.0-1.3); Monocytes % 6.6 %; Neutrophils # 19.5 K/mcL (1.6-8.9); Platelet Count 304 K/mcL (140-400); Red Blood Count 4.47 M/mcL (3.82-4.97); Red Cell Distribution Width 15.1 % (11.5-14.5); Segmented Neutrophils % 82.3 %; White Blood Count 23.6 K/mcL (4.3-11.1)
[2019-04-18] MEDS: *HR* Heparin 5,000 UNIT/ML VIAL SQ SCH ×3 (05:44→20:54)
[2019-04-18 05:52] LABS: Calcium 10.3 mg/dL (8.6-10.3); Potassium 3.6 mEq/L (3.5-5.1)
[2019-04-18] MEDS ORDERED: Furosemide 20 MG TABLET PO SCH (09:00)
[2019-04-18] MEDS: Insulin LISPRO 300 UNITS/3 ML VIAL SQ SCH ×4 (09:22→20:55)
[2019-04-18] MEDS: Lisinopril 20 MG TABLET PO SCH (09:22)
[2019-04-18] MEDS: methIMAzole 5 MG TABLET PO SCH (09:22)
[2019-04-18] MEDS: Multivit/Ca/Min/Fe/FA 1 TAB TABLET PO SCH (09:22)
[2019-04-18] MEDS: Doxycycline 100 MG in 0.9 % Sodium Chloride Mini Bag 100 ML IVPB SCH (09:23)
[2019-04-18] MEDS: Piperacillin/Tazobactam 3.375 GM in 0.9 % Sodium Chloride Mini Bag 100 ML IVPB SCH ×2 (18:38→23:35)
[2019-04-18] MEDS: MethylPREDNISolone 40 MG/ML VIAL IVP SCH (20:53)
[2019-04-18] MEDS: traZODone 50 MG TABLET PO SCH (20:54)
[2019-04-18] MEDS: Mirtazapine 15 MG TABLET PO SCH (20:54)
[2019-04-18] MEDS: tiZANidine 4 MG TABLET PO PRN (22:05)
[2019-04-19] MEDS ORDERED: Piperacillin/Tazobactam 3.375 GM in 0.9 % Sodium Chloride Mini Bag 100 ML IVPB SCH
[2019-04-19 02:03] LABS: Basophils % 0.1 %; Eosinophils % 0.1 %; Hematocrit 38.4 % (35.3-44.9); Hemoglobin 12.1 g/dL (11.5-15.4); Immature Granulocytes % 0.6 % (0-4); Lymphocytes # 1.1 K/mcL (0.6-4.6); Lymphocytes % 5.6 %; Mean Corpuscular HGB Conc 31.5 g/dL (31.6-35.5); Mean Corpuscular Hemoglobin 29.4 pg (28.0-33.3); Mean Corpuscular Volume 93.4 fL (83.0-100.0); Mean Platelet Volume 10.7 fL (9.4-12.4); Monocytes # 0.5 K/mcL (0.0-1.3); Monocytes % 2.4 %; Neutrophils # 18.6 K/mcL (1.6-8.9); Platelet Count 260 K/mcL (140-400); Red Blood Count 4.11 M/mcL (3.82-4.97); Red Cell Distribution Width 15.3 % (11.5-14.5); Segmented Neutrophils % 91.2 %; White Blood Count 20.4 K/mcL (4.3-11.1)
[2019-04-19 02:11] LABS: Calcium 9.6 mg/dL (8.6-10.3); Potassium 4.4 mEq/L (3.5-5.1)
[2019-04-19] MEDS: Ipratropium/Albuterol Neb 3 ML IH SCH ×4 (04:40→22:05)
[2019-04-19] MEDS: *HR* Heparin 5,000 UNIT/ML VIAL SQ SCH ×3 (05:32→21:51)
[2019-04-19] MEDS: Insulin LISPRO 300 UNITS/3 ML VIAL SQ SCH ×4 (08:24→22:01)
[2019-04-19] MEDS: Multivit/Ca/Min/Fe/FA 1 TAB TABLET PO SCH (09:06)
[2019-04-19] MEDS: methIMAzole 5 MG TABLET PO SCH (09:07)
[2019-04-19] MEDS: Piperacillin/Tazobactam 3.375 GM in 0.9 % Sodium Chloride Mini Bag 100 ML IVPB SCH ×3 (09:07→23:18)
[2019-04-19] MEDS: *HR* HYDROcodone/Acet 10/325 mg TABLET PO PRN ×2 (09:07→23:17)
[2019-04-19] MEDS: Fluticasone Propionate Nasal 50 MCG/SPRAY BOTTLE NS SCH (09:08)
[2019-04-19] MEDS: MethylPREDNISolone 40 MG/ML VIAL IVP SCH ×2 (09:08→21:51)
[2019-04-19] MEDS: Mirtazapine 15 MG TABLET PO SCH (21:50)
[2019-04-19] MEDS: traZODone 50 MG TABLET PO SCH (21:50)
[2019-04-19] MEDS: tiZANidine 4 MG TABLET PO PRN (21:51)
[2019-04-20] MEDS: Ipratropium/Albuterol Neb 3 ML IH SCH ×4 (04:40→22:52)
[2019-04-20] MEDS: *HR* Heparin 5,000 UNIT/ML VIAL SQ SCH ×3 (05:03→20:48)
[2019-04-20 07:22] LABS: Basophils % 0.1 %; Immature Granulocytes % 0.7 % (0-4); Lymphocytes # 1.5 K/mcL (0.6-4.6); Lymphocytes % 8.2 %; Mean Corpuscular HGB Conc 31.6 g/dL (31.6-35.5); Mean Corpuscular Hemoglobin 29.1 pg (28.0-33.3); Monocytes # 0.5 K/mcL (0.0-1.3); Neutrophils # 15.8 K/mcL (1.6-8.9); Platelet Count 266 K/mcL (140-400); Red Blood Count 4.13 M/mcL (3.82-4.97); Red Cell Distribution Width 15.1 % (11.5-14.5); White Blood Count 17.9 K/mcL (4.3-11.1)
[2019-04-20] MEDS: Insulin LISPRO 300 UNITS/3 ML VIAL SQ SCH ×4 (07:37→20:56)
[2019-04-20 07:47] LABS: Calcium 9.8 mg/dL (8.6-10.3)
[2019-04-20] MEDS: MethylPREDNISolone 40 MG/ML VIAL IVP SCH (08:13)
[2019-04-20] MEDS: Piperacillin/Tazobactam 3.375 GM in 0.9 % Sodium Chloride Mini Bag 100 ML IVPB SCH ×2 (08:14→16:28)
[2019-04-20] MEDS: methIMAzole 5 MG TABLET PO SCH (08:15)
[2019-04-20] MEDS: Multivit/Ca/Min/Fe/FA 1 TAB TABLET PO SCH (08:15)
[2019-04-20] MEDS: Fluticasone Propionate Nasal 50 MCG/SPRAY BOTTLE NS SCH (08:16)
[2019-04-20] MEDS: traZODone 50 MG TABLET PO SCH (20:49)
[2019-04-20] MEDS: Mirtazapine 15 MG TABLET PO SCH (20:50)
[2019-04-20] MEDS: *HR* HYDROcodone/Acet 10/325 mg TABLET PO PRN (22:16)
[2019-04-21] MEDS: Piperacillin/Tazobactam 3.375 GM in 0.9 % Sodium Chloride Mini Bag 100 ML IVPB SCH ×2 (00:22→08:18)
[2019-04-21] MEDS: Ipratropium/Albuterol Neb 3 ML IH SCH ×2 (03:23→10:59)
[2019-04-21] MEDS: *HR* Heparin 5,000 UNIT/ML VIAL SQ SCH ×2 (05:29→14:24)
[2019-04-21 05:48] LABS: Basophils % 0.1 %; Eosinophils % 0.1 %; Hemoglobin 12.4 g/dL (11.5-15.4); Immature Granulocytes % 0.6 % (0-4); Lymphocytes # 3.1 K/mcL (0.6-4.6); Lymphocytes % 16.1 %; Mean Corpuscular HGB Conc 31.8 g/dL (31.6-35.5); Mean Corpuscular Volume 91.3 fL (83.0-100.0); Mean Platelet Volume 10.9 fL (9.4-12.4); Monocytes # 1.2 K/mcL (0.0-1.3); Monocytes % 6.4 %; Neutrophils # 14.7 K/mcL (1.6-8.9); Platelet Count 284 K/mcL (140-400); Red Blood Count 4.27 M/mcL (3.82-4.97); Segmented Neutrophils % 76.7 %; White Blood Count 19.1 K/mcL (4.3-11.1)
[2019-04-21 07:19] LABS: Calcium 9.8 mg/dL (8.6-10.3); Potassium 3.7 mEq/L (3.5-5.1)
[2019-04-21] MEDS: Fluticasone Propionate Nasal 50 MCG/SPRAY BOTTLE NS SCH (08:17)
[2019-04-21] MEDS: methIMAzole 5 MG TABLET PO SCH (08:21)
[2019-04-21] MEDS: Insulin LISPRO 300 UNITS/3 ML VIAL SQ SCH ×2 (08:21→11:49)
[2019-04-21] MEDS: Multivit/Ca/Min/Fe/FA 1 TAB TABLET PO SCH (08:22)
[2019-04-21] MEDS ORDERED: MethylPREDNISolone 40 MG/ML VIAL IVP SCH (09:00)
[2019-04-21 11:47] VITALS: BP 160/87
== END 2019-04-21 14:29 | disposition home health service (06) | DRG 177 ==
LOC: 3ANU 18:16 → EMEROOARM 18:16 → SUATTDRO 04-16 01:00 → 3ANU 04-16 01:46
PROVIDERS: ADMIT Internal Medicine; ATTEND Internal Medicine

== ENCOUNTER 2019-05-06 12:28 | Observation (INO) ==
[2019-05-06] MEDS: 0.9 % Sodium Chloride 1,000 ML IVC SCH ×2 (12:59→14:41)
[2019-05-06 13:16] LABS: Basophils % 0.1 %; Eosinophils # 0.1 K/mcL (0.0-0.6); Eosinophils % 0.4 %; Hematocrit 34.1 % (35.3-44.9); Hemoglobin 10.8 g/dL (11.5-15.4); Immature Granulocytes % 0.5 % (0-4); Lymphocytes # 0.8 K/mcL (0.6-4.6); Lymphocytes % 3.4 %; Mean Corpuscular HGB Conc 31.7 g/dL (31.6-35.5); Mean Corpuscular Hemoglobin 29.4 pg (28.0-33.3); Mean Corpuscular Volume 92.9 fL (83.0-100.0); Mean Platelet Volume 10.8 fL (9.4-12.4); Monocytes # 1.2 K/mcL (0.0-1.3); Neutrophils # 22.3 K/mcL (1.6-8.9); Platelet Count 183 K/mcL (140-400); Red Blood Count 3.67 M/mcL (3.82-4.97); Red Cell Distribution Width 15.9 % (11.5-14.5); Segmented Neutrophils % 90.6 %; White Blood Count 24.6 K/mcL (4.3-11.1)
[2019-05-06 13:25] LABS: INR 1.1; Prothrombin Time 12.6 Seconds (9.4-12.1)
[2019-05-06 13:38] LABS: Alanine Aminotransferase 11 Units/L (7-52); Albumin 3.4 g/dL (3.5-5.7); Albumin/Globulin Ratio 1.2 (1.1-2.2); Alkaline Phosphatase 94 Units/L (34-104); Aspartate Amino Transferase 11 Units/L (13-39); BUN/Creatinine Ratio 28 (6-26); Bilirubin,Direct 0.2 mg/dL (0.0-0.2); Bilirubin,Indirect 0.4 mg/dL (0.0-1.0); Bilirubin,Total 0.6 mg/dL (0.3-1.0); Blood Urea Nitrogen 49 mg/dL (8-23); Calcium 9.2 mg/dL (8.6-10.3); Carbon Dioxide 26 mEq/L (23-29); Chloride 98 mEq/L (98-107); Creatine Kinase 68 Units/L (30-223); Ethanol < 10 mg/dL (Less than 10); Globulin 2.9 g/dL (2.4-3.5); Glucose 124 mg/dL (70-105); Osmolality,Calculated 290 (280-300); Potassium 4.8 mEq/L (3.5-5.1); Sodium 133 mEq/L (136-145); Total Protein 6.3 g/dL (6.4-8.9); Troponin I 0.03 ng/mL (< 0.04); eGFR For African Americans 33 (> 60); eGFR For Non-African Americans 27 (> 60)
[2019-05-06 13:40] LABS: Platelet Estimate Normal (Normal); Toxic Granulation Present (Not Present)
[2019-05-06 14:08] LABS: Bilirubin,Urine Negative (Negative); Blood,Urine Trace (Negative); Clarity,Urine Clear (Clear); Color,Urine Yellow (Yellow); Glucose,Urine (UA) Normal (Normal); Ketones,Urine Negative (Negative); Leukocyte Esterase,Urine Moderate (Negative); Nitrite,Urine Negative (Negative); Protein,Urine Trace mg/dL (Neg-Trace); Specific Gravity,Urine 1.017 (1.010-1.025); Urobilinogen,Urine Normal (Normal)
[2019-05-06] MEDS ORDERED: Piperacillin/Tazobactam 3.375 GM in 0.9 % Sodium Chloride Mini Bag 100 ML IVPB ONE (14:12)
[2019-05-06 14:13] LABS: Bacteria,Urine Moderate per hpf (None-Few); Hyaline Casts,Urine None Seen per lpf (None-Few); RBC,Urine 0-3 per hpf (0-3); Squamous Epithelial Cell,Urine None Seen per lpf (None-Few); WBC,Urine 50-100 per hpf (0-3)
[2019-05-06 14:16] LABS: Amphetamine Screen,Urine Negative ng/mL (Cutoff=1000); Barbiturate Screen,Urine Negative ng/mL (Cutoff=200); Benzodiazepines Screen,Urine Negative ng/mL (Cutoff=200); Cannabinoid Screen,Urine Negative ng/mL (Cutoff = 50); Cocaine Screen,Urine Negative ng/mL (Cutoff= 300); Opiate Screen,Urine Positive ng/mL (Cutoff=300); Phencyclidine Screen,Urine Negative ng/mL (Cutoff=25)
[2019-05-06] MEDS ORDERED: cefTRIAXone 2,000 MG in 0.9 % Sodium Chloride Mini Bag 100 ML IVPB ONE (14:19)
[2019-05-06] MEDS ORDERED: Naloxone 0.4 MG/ML INJ IVP STA (14:22)
[2019-05-06] MEDS ORDERED: Naloxone 0.4 MG/ML INJ IVP PRN (16:08)
[2019-05-06] MEDS ORDERED: 0.9 % Sodium Chloride 1,000 ML IVC SCH (16:15)
[2019-05-06] MEDS: Acetaminophen 325 MG TABLET PO PRN (16:57)
[2019-05-06] MEDS: *HR* Heparin 5,000 UNIT/ML VIAL SQ SCH (17:28)
[2019-05-06] MEDS ORDERED: Ipratropium/Albuterol Neb 3 ML IH PRN (17:44)
[2019-05-06] MEDS ORDERED: tiZANidine 4 MG TABLET PO PRN (17:44)
[2019-05-06] MEDS ORDERED: *HR* HYDROcodone/Acet 10/325 mg TABLET PO PRN (17:44)
[2019-05-06] MEDS ORDERED: Loratadine 10 MG TABLET PO PRN (17:44)
[2019-05-06] MEDS ORDERED: D5% in Water 1,000 ML IVC PRN (17:44)
[2019-05-06] MEDS ORDERED: Dextrose Gel 15 GM/37.5 ML TUBE PO PRN ×2 (17:44)
[2019-05-06] MEDS ORDERED: *HR* Dextrose 50 % in Water (Syg) 50 ML SYRINGE IVP PRN (17:44)
[2019-05-06] MEDS: Mirtazapine 15 MG TABLET PO SCH (20:08)
[2019-05-06] MEDS: Melatonin 3 MG TABLET PO SCH (20:08)
[2019-05-06] MEDS: Famotidine 20 MG TABLET PO SCH (20:08)
[2019-05-06] MEDS: traZODone 50 MG TABLET PO SCH (20:09)
[2019-05-06] MEDS: Gabapentin 300 MG CAPSULE PO SCH (20:09)
[2019-05-07] MEDS: *HR* Heparin 5,000 UNIT/ML VIAL SQ SCH ×2 (05:57→16:07)
[2019-05-07 06:14] LABS: Basophils % 0.2 %; Eosinophils % 0.8 %; Monocytes % 3.3 %; Red Cell Distribution Width 15.9 % (11.5-14.5)
[2019-05-07 06:16] LABS: Eosinophils # 0.2 K/mcL (0.0-0.6); Hematocrit 33.7 % (35.3-44.9); Hemoglobin 10.6 g/dL (11.5-15.4); Immature Granulocytes % 0.6 % (0-4); Lymphocytes # 1.3 K/mcL (0.6-4.6); Lymphocytes % 5.2 %; Mean Corpuscular HGB Conc 31.5 g/dL (31.6-35.5); Mean Corpuscular Hemoglobin 29.1 pg (28.0-33.3); Mean Corpuscular Volume 92.6 fL (83.0-100.0); Monocytes # 0.8 K/mcL (0.0-1.3); Neutrophils # 22.7 K/mcL (1.6-8.9); Platelet Count 172 K/mcL (140-400); Red Blood Count 3.64 M/mcL (3.82-4.97); Segmented Neutrophils % 89.9 %; White Blood Count 25.3 K/mcL (4.3-11.1)
[2019-05-07 06:17] LABS: Basophils # 0.1 K/mcL (0.0-0.2)
[2019-05-07 06:36] LABS: Calcium 9.1 mg/dL (8.6-10.3); Potassium 4.1 mEq/L (3.5-5.1)
[2019-05-07 06:37] LABS: Platelet Estimate Normal (Normal)
[2019-05-07] MEDS: methIMAzole 5 MG TABLET PO SCH (09:12)
[2019-05-07] MEDS: Gabapentin 300 MG CAPSULE PO SCH ×2 (09:13→21:07)
[2019-05-07] MEDS: Cholecalciferol (D-3) 1,000 UNIT (25MCG) TABLET PO SCH (09:13)
[2019-05-07] MEDS: cefTRIAXone 1,000 MG in Water for inj. (sterile) 10 ML IVP SCH (09:13)
[2019-05-07] MEDS: Vitamin B Complex/Vit C/Vit E 1 EACH TABLET PO SCH (09:13)
[2019-05-07] MEDS: Insulin LISPRO 300 UNITS/3 ML VIAL SQ SCH ×3 (09:14→15:52)
[2019-05-07] MEDS: Fluticasone Propionate Nasal 50 MCG/SPRAY BOTTLE NS SCH (09:14)
[2019-05-07] MEDS: Ipratropium/Albuterol Neb 3 ML IH SCH ×4 (11:31→20:30)
[2019-05-07] MEDS: Acetylcysteine 10% 2 ML INHSOL IH SCH ×4 (11:31→20:31)
[2019-05-07 15:59] LABS: Adenovirus Not Detected (Not Detect); Bordetella Pertussis Not Detected (Not Detect); Chlamydophila pneumoniae Not Detected (Not Detect); Coronavirus 229E Not Detected (Not Detect); Coronavirus HKU1 Not Detected (Not Detect); Coronavirus NL63 Not Detected (Not Detect); Coronavirus OC43 Not Detected (Not Detect); Human Metapneumovirus Not Detected (Not Detect); Human Rhinovirus/Enterovirus Not Detected (Not Detect); Influenza A Subtype 2009 H1 Not Detected (Not Detect); Influenza A Untypeable Not Detected (Not Detect); Influenza B Not Detected (Not Detect); Mycoplasma pneumoniae Not Detected (Not Detect); Parainfluenza Virus 1 Not Detected (Not Detect); Parainfluenza Virus 2 Not Detected (Not Detect); Parainfluenza Virus 3 Not Detected (Not Detect); Parainfluenza Virus 4 Not Detected (Not Detect); Respiratory Syncytial Virus Not Detected (Not Detect)
[2019-05-07] MEDS: Acetaminophen 325 MG TABLET PO PRN (16:07)
[2019-05-07] MEDS: MethylPREDNISolone 40 MG/ML VIAL IVP SCH (16:08)
[2019-05-07] MEDS: Piperacillin/Tazobactam 3.375 GM in 0.9 % Sodium Chloride Mini Bag 100 ML IVPB SCH (16:08)
[2019-05-07] MEDS ORDERED: Ondansetron 4 MG/2 ML VIAL IVP ONE (16:58)
[2019-05-07] MEDS: Famotidine 20 MG TABLET PO SCH (21:07)
[2019-05-07] MEDS: traZODone 50 MG TABLET PO SCH (21:07)
[2019-05-07] MEDS: Melatonin 3 MG TABLET PO SCH (21:08)
[2019-05-07] MEDS: Mirtazapine 15 MG TABLET PO SCH (21:08)
[2019-05-08] MEDS: Ipratropium/Albuterol Neb 3 ML IH SCH ×6 (00:27→20:31)
[2019-05-08] MEDS: Acetylcysteine 10% 2 ML INHSOL IH SCH ×6 (00:27→20:31)
[2019-05-08] MEDS: MethylPREDNISolone 40 MG/ML VIAL IVP SCH ×3 (00:58→18:24)
[2019-05-08] MEDS: Piperacillin/Tazobactam 3.375 GM in 0.9 % Sodium Chloride Mini Bag 100 ML IVPB SCH ×3 (00:58→18:22)
[2019-05-08] MEDS: *HR* Heparin 5,000 UNIT/ML VIAL SQ SCH ×2 (06:19→18:23)
[2019-05-08 06:33] LABS: Basophils % 0.1 %; Hematocrit 34.7 % (35.3-44.9); Immature Granulocytes % 0.6 % (0-4); Lymphocytes # 0.5 K/mcL (0.6-4.6); Lymphocytes % 2.4 %; Mean Corpuscular HGB Conc 31.7 g/dL (31.6-35.5); Mean Corpuscular Volume 91.6 fL (83.0-100.0); Mean Platelet Volume 11.1 fL (9.4-12.4); Monocytes # 0.1 K/mcL (0.0-1.3); Monocytes % 0.5 %; Neutrophils # 18.9 K/mcL (1.6-8.9); Platelet Count 189 K/mcL (140-400); Red Blood Count 3.79 M/mcL (3.82-4.97); Red Cell Distribution Width 15.8 % (11.5-14.5); Segmented Neutrophils % 96.4 %; White Blood Count 19.6 K/mcL (4.3-11.1)
[2019-05-08 06:47] LABS: BUN/Creatinine Ratio 23 (6-26); Blood Urea Nitrogen 23 mg/dL (8-23); Calcium 9.5 mg/dL (8.6-10.3); Carbon Dioxide 23 mEq/L (23-29); Chloride 102 mEq/L (98-107); Glucose 132 mg/dL (70-105); Osmolality,Calculated 292 (280-300); Sodium 138 mEq/L (136-145); eGFR For African Americans > 60 (> 60); eGFR For Non-African Americans 53 (> 60)
[2019-05-08] MEDS: cefTRIAXone 1,000 MG in Water for inj. (sterile) 10 ML IVP SCH (09:10)
[2019-05-08] MEDS: Fluticasone Propionate Nasal 50 MCG/SPRAY BOTTLE NS SCH (09:11)
[2019-05-08] MEDS: Cholecalciferol (D-3) 1,000 UNIT (25MCG) TABLET PO SCH (09:11)
[2019-05-08] MEDS: methIMAzole 5 MG TABLET PO SCH (09:11)
[2019-05-08] MEDS: Vitamin B Complex/Vit C/Vit E 1 EACH TABLET PO SCH (09:11)
[2019-05-08] MEDS: Insulin LISPRO 300 UNITS/3 ML VIAL SQ SCH ×3 (09:11→18:23)
[2019-05-08] MEDS: Gabapentin 300 MG CAPSULE PO SCH ×2 (09:31→21:20)
[2019-05-08] MEDS: Famotidine 20 MG TABLET PO SCH (21:20)
[2019-05-08] MEDS: traZODone 50 MG TABLET PO SCH (21:20)
[2019-05-08] MEDS: Melatonin 3 MG TABLET PO SCH (21:20)
[2019-05-08] MEDS: Mirtazapine 15 MG TABLET PO SCH (21:20)
[2019-05-09] MEDS: Acetylcysteine 10% 2 ML INHSOL IH SCH ×7 (00:08→23:12)
[2019-05-09] MEDS: Ipratropium/Albuterol Neb 3 ML IH SCH ×7 (00:08→23:12)
[2019-05-09] MEDS: Piperacillin/Tazobactam 3.375 GM in 0.9 % Sodium Chloride Mini Bag 100 ML IVPB SCH ×3 (02:00→14:49)
[2019-05-09 02:22] LABS: Basophils % 0.1 %; Eosinophils % 0.1 %; Hematocrit 33.2 % (35.3-44.9); Hemoglobin 10.7 g/dL (11.5-15.4); Immature Granulocytes % 0.9 % (0-4); Lymphocytes # 0.6 K/mcL (0.6-4.6); Lymphocytes % 4.1 %; Mean Corpuscular HGB Conc 32.2 g/dL (31.6-35.5); Mean Corpuscular Hemoglobin 29.1 pg (28.0-33.3); Mean Corpuscular Volume 90.2 fL (83.0-100.0); Mean Platelet Volume 11.4 fL (9.4-12.4); Monocytes # 0.3 K/mcL (0.0-1.3); Monocytes % 1.9 %; Neutrophils # 14.3 K/mcL (1.6-8.9); Platelet Count 207 K/mcL (140-400); Red Blood Count 3.68 M/mcL (3.82-4.97); Red Cell Distribution Width 15.9 % (11.5-14.5); Segmented Neutrophils % 92.9 %; White Blood Count 15.4 K/mcL (4.3-11.1)
[2019-05-09 02:41] LABS: Calcium 9.3 mg/dL (8.6-10.3)
[2019-05-09] MEDS: *HR* Heparin 5,000 UNIT/ML VIAL SQ SCH ×2 (05:37→17:06)
[2019-05-09] MEDS: MethylPREDNISolone 40 MG/ML VIAL IVP SCH (06:26)
[2019-05-09] MEDS: Fluticasone Propionate Nasal 50 MCG/SPRAY BOTTLE NS SCH (09:29)
[2019-05-09] MEDS: Insulin LISPRO 300 UNITS/3 ML VIAL SQ SCH ×3 (09:30→16:58)
[2019-05-09] MEDS: Vitamin B Complex/Vit C/Vit E 1 EACH TABLET PO SCH (09:31)
[2019-05-09] MEDS: cefTRIAXone 1,000 MG in Water for inj. (sterile) 10 ML IVP SCH (09:31)
[2019-05-09] MEDS: Cholecalciferol (D-3) 1,000 UNIT (25MCG) TABLET PO SCH (09:32)
[2019-05-09] MEDS: methIMAzole 5 MG TABLET PO SCH (09:33)
[2019-05-09] MEDS: Gabapentin 300 MG CAPSULE PO SCH ×2 (09:33→20:08)
[2019-05-09] MEDS: Doxycycline 100 MG in 0.9 % Sodium Chloride Mini Bag 100 ML IVPB SCH (17:05)
[2019-05-09] MEDS: Famotidine 20 MG TABLET PO SCH (20:08)
[2019-05-09] MEDS: traZODone 50 MG TABLET PO SCH (20:08)
[2019-05-09] MEDS: Melatonin 3 MG TABLET PO SCH (20:08)
[2019-05-09] MEDS: Mirtazapine 15 MG TABLET PO SCH (20:09)
[2019-05-10] MEDS: Piperacillin/Tazobactam 3.375 GM in 0.9 % Sodium Chloride Mini Bag 100 ML IVPB SCH (00:37)
[2019-05-10 02:21] LABS: Basophils % 0.1 %; Hemoglobin 10.1 g/dL (11.5-15.4); Immature Granulocytes % 0.6 % (0-4); Lymphocytes # 1.4 K/mcL (0.6-4.6); Mean Corpuscular HGB Conc 32.6 g/dL (31.6-35.5); Mean Corpuscular Hemoglobin 28.9 pg (28.0-33.3); Mean Corpuscular Volume 88.6 fL (83.0-100.0); Mean Platelet Volume 11.2 fL (9.4-12.4); Monocytes # 0.7 K/mcL (0.0-1.3); Monocytes % 4.6 %; Neutrophils # 13.5 K/mcL (1.6-8.9); Platelet Count 220 K/mcL (140-400); Red Cell Distribution Width 15.7 % (11.5-14.5); Segmented Neutrophils % 85.7 %; White Blood Count 15.7 K/mcL (4.3-11.1)
[2019-05-10 02:37] LABS: Calcium 9.1 mg/dL (8.6-10.3); Potassium 3.9 mEq/L (3.5-5.1)
[2019-05-10] MEDS: Ipratropium/Albuterol Neb 3 ML IH SCH (04:04)
[2019-05-10] MEDS: Acetylcysteine 10% 2 ML INHSOL IH SCH (04:04)
[2019-05-10] MEDS: methIMAzole 5 MG TABLET PO SCH (06:24)
[2019-05-10] MEDS: Cholecalciferol (D-3) 1,000 UNIT (25MCG) TABLET PO SCH (06:25)
[2019-05-10] MEDS: Gabapentin 300 MG CAPSULE PO SCH (06:25)
[2019-05-10] MEDS: Fluticasone Propionate Nasal 50 MCG/SPRAY BOTTLE NS SCH (06:25)
[2019-05-10] MEDS: *HR* Heparin 5,000 UNIT/ML VIAL SQ SCH (06:25)
[2019-05-10] MEDS: Vitamin B Complex/Vit C/Vit E 1 EACH TABLET PO SCH (06:25)
[2019-05-10] MEDS: Doxycycline 100 MG in 0.9 % Sodium Chloride Mini Bag 100 ML IVPB SCH (06:28)
[2019-05-10 06:57] VITALS: BP 191/107
[2019-05-10] MEDS ORDERED: MethylPREDNISolone 40 MG/ML VIAL IVP SCH (09:00)
== END 2019-05-10 12:13 | disposition home or self-care (01) ==
LOC: 3BNU 12:28 → EMEROOARM 12:28 → SUATTDRO 16:03 → 3BNU 17:02
PROVIDERS: ADMIT Internal Medicine; ATTEND Family Medicine

== ENCOUNTER 2019-07-10 13:39 | Inpatient (IN) ==
[~2019-07-10 13:39] MED LIST: Ipratropium/Albuterol Neb 3 ML IH ONE
[2019-07-10] MEDS ORDERED: methylPREDNISolone 125 MG/2 ML VIAL IVP ONE (13:47)
[2019-07-10] MEDS: Ipratropium/Albuterol Neb 3 ML IH ONE (13:54)
[2019-07-10 14:40] LABS: Calcium 9.8 mg/dL (8.6-10.3); Potassium 4.5 mEq/L (3.5-5.1)
[2019-07-10 14:51] LABS: Troponin I 0.04 ng/mL (< 0.04)
[2019-07-10 15:32] LABS: Basophils # 0.1 K/mcL (0.0-0.2); Basophils % 0.4 %; Eosinophils # 0.1 K/mcL (0.0-0.6); Eosinophils % 0.6 %; Hematocrit 39.8 % (35.3-44.9); Hemoglobin 12.2 g/dL (11.5-15.4); Immature Granulocytes % 0.5 % (0-4); Lymphocytes % 7.1 %; Mean Corpuscular HGB Conc 30.7 g/dL (31.6-35.5); Mean Corpuscular Hemoglobin 28.9 pg (28.0-33.3); Mean Corpuscular Volume 94.3 fL (83.0-100.0); Mean Platelet Volume 10.8 fL (9.4-12.4); Monocytes # 0.1 K/mcL (0.0-1.3); Monocytes % 0.9 %; Neutrophils # 12.6 K/mcL (1.6-8.9); Platelet Count 276 K/mcL (140-400); Red Blood Count 4.22 M/mcL (3.82-4.97); Segmented Neutrophils % 90.5 %; White Blood Count 13.9 K/mcL (4.3-11.1)
[2019-07-10 16:29] LABS: ABG Base Excess 2 mEq/L (-2 to 3); ABG HCO3 25 mEq/L (21-27); ABG Oxygen Saturation 88 % (95-98); ABG PCO2 34 mmHg (35-45); ABG PH 7.47 pH Units (7.32-7.45); ABG PO2 51 mmHg (85-104); ABG TCO2 26 mEq/L (20-26)
[2019-07-10] MEDS ORDERED: Ondansetron 4 MG/2 ML VIAL IVP PRN (16:36)
[2019-07-10] MEDS ORDERED: Acetaminophen 325 MG TABLET PO PRN (16:36)
[2019-07-10] MEDS ORDERED: Naloxone 0.4 MG/ML INJ IVP PRN (16:36)
[2019-07-10] MEDS ORDERED: Ipratropium Neb 0.5 MG NEBULIZER IH PRN (16:48)
[2019-07-10] MEDS ORDERED: tiZANidine 4 MG TABLET PO PRN (17:02)
[2019-07-10] MEDS ORDERED: Ipratropium/Albuterol Neb 3 ML ONE (18:40)
[2019-07-10] MEDS: Ipratropium/Albuterol Neb 3 ML IH SCH ×2 (18:47→22:13)
[2019-07-10] MEDS: *HR* Heparin 5,000 UNIT/ML VIAL SQ SCH (18:48)
[2019-07-10] MEDS: *HR* HYDROcodone/Acet 5/325 mg TABLET PO PRN (22:30)
[2019-07-10] MEDS: Piperacillin/Tazobactam 3.375 GM in 0.9 % Sodium Chloride Mini Bag 100 ML IVPB SCH (22:30)
[2019-07-10] MEDS: Melatonin 3 MG TABLET PO SCH (22:30)
[2019-07-10] MEDS: Mirtazapine 15 MG TABLET PO SCH (22:31)
[2019-07-10] MEDS: Gabapentin 400 MG CAPSULE PO SCH (22:31)
[2019-07-10] MEDS: carvediloL 6.25 MG TABLET PO SCH (22:31)
[2019-07-11] MEDS ORDERED: Piperacillin/Tazobactam 3.375 GM in 0.9 % Sodium Chloride Mini Bag 100 ML IVPB SCH
[2019-07-11 02:09] LABS: Basophils % 0.1 %; Hematocrit 38.1 % (35.3-44.9); Hemoglobin 11.8 g/dL (11.5-15.4); Immature Granulocytes % 0.7 % (0-4); Lymphocytes # 0.8 K/mcL (0.6-4.6); Lymphocytes % 7.3 %; Mean Corpuscular Hemoglobin 29.1 pg (28.0-33.3); Mean Corpuscular Volume 94.1 fL (83.0-100.0); Mean Platelet Volume 10.6 fL (9.4-12.4); Monocytes # 0.1 K/mcL (0.0-1.3); Neutrophils # 9.8 K/mcL (1.6-8.9); Platelet Count 243 K/mcL (140-400); Red Blood Count 4.05 M/mcL (3.82-4.97); Red Cell Distribution Width 17.8 % (11.5-14.5); Segmented Neutrophils % 90.9 %; White Blood Count 10.8 K/mcL (4.3-11.1)
[2019-07-11 02:26] LABS: Troponin I 0.03 ng/mL (< 0.04)
[2019-07-11 02:59] LABS: Magnesium 2.2 mg/dL (1.6-2.6); Potassium 4.7 mEq/L (3.5-5.1)
[2019-07-11] MEDS: Ipratropium/Albuterol Neb 3 ML IH SCH ×4 (03:16→21:29)
[2019-07-11] MEDS: Piperacillin/Tazobactam 3.375 GM in 0.9 % Sodium Chloride Mini Bag 100 ML IVPB SCH ×3 (05:21→17:03)
[2019-07-11] MEDS: *HR* Heparin 5,000 UNIT/ML VIAL SQ SCH ×2 (06:16→17:04)
[2019-07-11 07:44] LABS: Adenovirus Not Detected (Not Detect); Bordetella Pertussis Not Detected (Not Detect); Chlamydophila pneumoniae Not Detected (Not Detect); Coronavirus 229E Not Detected (Not Detect); Coronavirus HKU1 Not Detected (Not Detect); Coronavirus NL63 Not Detected (Not Detect); Coronavirus OC43 Not Detected (Not Detect); Human Metapneumovirus Not Detected (Not Detect); Human Rhinovirus/Enterovirus Not Detected (Not Detect); Influenza A Subtype 2009 H1 Not Detected (Not Detect); Influenza B Not Detected (Not Detect); Mycoplasma pneumoniae Not Detected (Not Detect); Parainfluenza Virus 1 Not Detected (Not Detect); Parainfluenza Virus 2 Not Detected (Not Detect); Parainfluenza Virus 3 Not Detected (Not Detect); Parainfluenza Virus 4 Not Detected (Not Detect); Respiratory Syncytial Virus Not Detected (Not Detect)
[2019-07-11] MEDS ORDERED: Furosemide 20 MG/2 ML VIAL IVP ONE (08:22)
[2019-07-11] MEDS ORDERED: Furosemide 20 MG TABLET PO SCH (09:00)
[2019-07-11] MEDS ORDERED: MethylPREDNISolone 40 MG/ML VIAL IVP SCH ×2 (09:00→11:15)
[2019-07-11] MEDS ORDERED: Perflutren Lipid Microsphere 1.3 ML in 0.9 % Sodium Chloride 8.7 ML IVP ONE (09:13)
[2019-07-11] MEDS: Loratadine 10 MG TABLET PO SCH (10:05)
[2019-07-11] MEDS: Gabapentin 400 MG CAPSULE PO SCH ×2 (10:05→21:46)
[2019-07-11] MEDS: carvediloL 6.25 MG TABLET PO SCH ×2 (10:05→21:46)
[2019-07-11] MEDS: methIMAzole 5 MG TABLET PO SCH (10:05)
[2019-07-11] MEDS: Lisinopril 20 MG TABLET PO SCH (10:05)
[2019-07-11 10:55] LABS: Bilirubin,Urine Negative (Negative); Blood,Urine Negative (Negative); Clarity,Urine Clear (Clear); Color,Urine Yellow (Yellow); Glucose,Urine (UA) Normal (Normal); Ketones,Urine Negative (Negative); Leukocyte Esterase,Urine Trace (Negative); Nitrite,Urine Negative (Negative); Protein,Urine Negative (Neg-Trace); Specific Gravity,Urine 1.024 (1.010-1.025); Urobilinogen,Urine Normal (Normal)
[2019-07-11 11:08] LABS: WBC,Urine 0-3 per hpf (0-3)
[2019-07-11] MEDS: Budesonide/Formoterol 160/4.5 1 PUFF INH IH SCH ×2 (15:39→21:29)
[2019-07-11] MEDS: Fluticasone Propionate Nasal 50 MCG/SPRAY BOTTLE NS SCH (17:02)
[2019-07-11] MEDS: Mirtazapine 15 MG TABLET PO SCH (21:46)
[2019-07-11] MEDS: Melatonin 3 MG TABLET PO SCH (21:46)
[2019-07-11] MEDS: MethylPREDNISolone 40 MG/ML VIAL IVP SCH (21:47)
[2019-07-12] MEDS: Piperacillin/Tazobactam 3.375 GM in 0.9 % Sodium Chloride Mini Bag 100 ML IVPB SCH ×3 (00:53→17:56)
[2019-07-12] MEDS: Ipratropium/Albuterol Neb 3 ML IH SCH ×4 (03:41→22:11)
[2019-07-12] MEDS: *HR* Heparin 5,000 UNIT/ML VIAL SQ SCH ×2 (05:32→17:56)
[2019-07-12] MEDS ORDERED: NON-FORMULARY MEDICATION 1 EACH EACH (Mv-Min/Fa/Vit K/Lycop/Lut/Zeax [Ocuvite Eye Plus Mul PO SCH (09:00)
[2019-07-12] MEDS: Loratadine 10 MG TABLET PO SCH (10:17)
[2019-07-12] MEDS: Budesonide/Formoterol 160/4.5 1 PUFF INH IH SCH ×2 (10:17→22:11)
[2019-07-12] MEDS: carvediloL 6.25 MG TABLET PO SCH ×2 (10:17→21:49)
[2019-07-12] MEDS: Gabapentin 400 MG CAPSULE PO SCH ×2 (10:17→21:49)
[2019-07-12] MEDS: Lisinopril 20 MG TABLET PO SCH (10:18)
[2019-07-12] MEDS: methIMAzole 5 MG TABLET PO SCH (10:18)
[2019-07-12] MEDS ORDERED: Furosemide 20 MG/2 ML VIAL IVP ONE ×2 (10:19→10:21)
[2019-07-12] MEDS: Fluticasone Propionate Nasal 50 MCG/SPRAY BOTTLE NS SCH (10:28)
[2019-07-12] MEDS: MethylPREDNISolone 40 MG/ML VIAL IVP SCH ×2 (10:29→21:50)
[2019-07-12] MEDS ORDERED: Ipratropium/Albuterol Neb 3 ML ONE (10:35)
[2019-07-12] MEDS: Ipratropium/Albuterol Neb 3 ML IH ONE ×2 (10:51→10:52)
[2019-07-12] MEDS ORDERED: Furosemide 40 MG/4 ML VIAL IVP SCH (12:00)
[2019-07-12] MEDS: Furosemide 20 MG/2 ML VIAL IVP SCH ×2 (13:09→17:55)
[2019-07-12] MEDS: Melatonin 3 MG TABLET PO SCH (21:49)
[2019-07-12] MEDS: Mirtazapine 15 MG TABLET PO SCH (21:49)
[2019-07-13] MEDS: Piperacillin/Tazobactam 3.375 GM in 0.9 % Sodium Chloride Mini Bag 100 ML IVPB SCH ×3 (00:18→18:34)
[2019-07-13 03:03] LABS: Basophils % 0.1 %; Hematocrit 41.2 % (35.3-44.9); Hemoglobin 12.4 g/dL (11.5-15.4); Immature Granulocytes % 0.6 % (0-4); Lymphocytes # 1.1 K/mcL (0.6-4.6); Lymphocytes % 5.9 %; Mean Corpuscular HGB Conc 30.1 g/dL (31.6-35.5); Mean Corpuscular Hemoglobin 28.4 pg (28.0-33.3); Mean Corpuscular Volume 94.3 fL (83.0-100.0); Mean Platelet Volume 11.1 fL (9.4-12.4); Monocytes # 0.4 K/mcL (0.0-1.3); Monocytes % 2.1 %; Platelet Count 244 K/mcL (140-400); Red Blood Count 4.37 M/mcL (3.82-4.97); Red Cell Distribution Width 18.2 % (11.5-14.5); Segmented Neutrophils % 91.3 %
[2019-07-13 03:17] LABS: Calcium 9.9 mg/dL (8.6-10.3); Potassium 4.1 mEq/L (3.5-5.1)
[2019-07-13 03:21] LABS: Neutrophils # 16.6 K/mcL (1.6-8.9); White Blood Count 18.2 K/mcL (4.3-11.1)
[2019-07-13] MEDS: Ipratropium/Albuterol Neb 3 ML IH SCH ×4 (03:47→21:49)
[2019-07-13] MEDS: *HR* Heparin 5,000 UNIT/ML VIAL SQ SCH ×2 (06:07→18:33)
[2019-07-13] MEDS: Budesonide/Formoterol 160/4.5 1 PUFF INH IH SCH ×2 (09:08→21:49)
[2019-07-13] MEDS: Furosemide 20 MG/2 ML VIAL IVP SCH (09:10)
[2019-07-13] MEDS: MethylPREDNISolone 40 MG/ML VIAL IVP SCH ×2 (09:10→22:38)
[2019-07-13] MEDS: Loratadine 10 MG TABLET PO SCH (09:11)
[2019-07-13] MEDS: Lisinopril 20 MG TABLET PO SCH (09:11)
[2019-07-13] MEDS: carvediloL 6.25 MG TABLET PO SCH ×2 (09:11→22:38)
[2019-07-13] MEDS: Gabapentin 400 MG CAPSULE PO SCH ×2 (09:11→22:38)
[2019-07-13] MEDS: methIMAzole 5 MG TABLET PO SCH (09:12)
[2019-07-13] MEDS: Fluticasone Propionate Nasal 50 MCG/SPRAY BOTTLE NS SCH (09:14)
[2019-07-13] MEDS: Furosemide 40 MG/4 ML VIAL IVP SCH (18:34)
[2019-07-13] MEDS ORDERED: *HR* Heparin 5,000 UNIT/ML VIAL IVP ONE (22:24)
[2019-07-13] MEDS ORDERED: *HR* Heparin 5,000 UNIT/ML VIAL IVP PRN (22:24)
[2019-07-13] MEDS: Melatonin 3 MG TABLET PO SCH (22:38)
[2019-07-13] MEDS: Mirtazapine 15 MG TABLET PO SCH (22:38)
[2019-07-13] MEDS: Heparin 25,000 UNIT/250 ML D5W 25,000 UNIT/250 ML IV.SOLN IVC SCH (22:45)
[2019-07-14 00:51] LABS: Basophils % 0.1 %; Hematocrit 39.9 % (35.3-44.9); Hemoglobin 12.9 g/dL (11.5-15.4); Immature Granulocytes % 0.7 % (0-4); Lymphocytes # 1.8 K/mcL (0.6-4.6); Lymphocytes % 8.2 %; Mean Corpuscular HGB Conc 32.3 g/dL (31.6-35.5); Mean Corpuscular Hemoglobin 28.6 pg (28.0-33.3); Mean Corpuscular Volume 88.5 fL (83.0-100.0); Mean Platelet Volume 10.9 fL (9.4-12.4); Monocytes # 1.6 K/mcL (0.0-1.3); Monocytes % 7.4 %; Neutrophils # 17.9 K/mcL (1.6-8.9); Platelet Count 267 K/mcL (140-400); Red Blood Count 4.51 M/mcL (3.82-4.97); Segmented Neutrophils % 83.6 %; White Blood Count 21.4 K/mcL (4.3-11.1)
[2019-07-14 01:06] LABS: Potassium 3.9 mEq/L (3.5-5.1)
[2019-07-14] MEDS: Piperacillin/Tazobactam 3.375 GM in 0.9 % Sodium Chloride Mini Bag 100 ML IVPB SCH ×4 (02:56→18:05)
[2019-07-14] MEDS: Ipratropium/Albuterol Neb 3 ML IH SCH ×4 (03:07→21:15)
[2019-07-14] MEDS ORDERED: Aminoglycoside Consult 1 EACH MC ONE (08:13)
[2019-07-14] MEDS: Gabapentin 400 MG CAPSULE PO SCH ×2 (08:17→21:32)
[2019-07-14] MEDS: Furosemide 40 MG/4 ML VIAL IVP SCH ×2 (08:17→16:39)
[2019-07-14] MEDS: carvediloL 6.25 MG TABLET PO SCH ×2 (08:17→21:32)
[2019-07-14] MEDS: Lisinopril 20 MG TABLET PO SCH (08:17)
[2019-07-14] MEDS: MethylPREDNISolone 40 MG/ML VIAL IVP SCH ×2 (08:18→22:24)
[2019-07-14] MEDS: Loratadine 10 MG TABLET PO SCH (08:18)
[2019-07-14] MEDS: methIMAzole 5 MG TABLET PO SCH (08:18)
[2019-07-14] MEDS: Fluticasone Propionate Nasal 50 MCG/SPRAY BOTTLE NS SCH (08:33)
[2019-07-14] MEDS: Budesonide/Formoterol 160/4.5 1 PUFF INH IH SCH ×2 (09:41→21:15)
[2019-07-14] MEDS: Heparin 25,000 UNIT/250 ML D5W 25,000 UNIT/250 ML IV.SOLN IVC SCH (16:38)
[2019-07-14] MEDS: Mirtazapine 15 MG TABLET PO SCH (21:32)
[2019-07-14] MEDS: *HR* HYDROcodone/Acet 5/325 mg TABLET PO PRN (22:47)
[2019-07-14] MEDS: Melatonin 3 MG TABLET PO SCH (22:47)
[2019-07-15] MEDS: Piperacillin/Tazobactam 3.375 GM in 0.9 % Sodium Chloride Mini Bag 100 ML IVPB SCH ×3 (03:24→22:40)
[2019-07-15] MEDS: Ipratropium/Albuterol Neb 3 ML IH SCH ×4 (03:28→21:25)
[2019-07-15 05:15] LABS: Basophils % 0.1 %; Hematocrit 39.5 % (35.3-44.9); Hemoglobin 12.8 g/dL (11.5-15.4); Immature Granulocytes % 1.3 % (0-4); Lymphocytes # 1.4 K/mcL (0.6-4.6); Lymphocytes % 6.2 %; Mean Corpuscular HGB Conc 32.4 g/dL (31.6-35.5); Mean Corpuscular Hemoglobin 29.2 pg (28.0-33.3); Mean Corpuscular Volume 90.2 fL (83.0-100.0); Mean Platelet Volume 10.7 fL (9.4-12.4); Monocytes # 0.8 K/mcL (0.0-1.3); Monocytes % 3.5 %; Neutrophils # 20.2 K/mcL (1.6-8.9); Platelet Count 243 K/mcL (140-400); Red Blood Count 4.38 M/mcL (3.82-4.97); Red Cell Distribution Width 17.9 % (11.5-14.5); Segmented Neutrophils % 88.9 %; White Blood Count 22.8 K/mcL (4.3-11.1)
[2019-07-15 05:32] LABS: Calcium 9.5 mg/dL (8.6-10.3); Potassium 4.1 mEq/L (3.5-5.1)
[2019-07-15] MEDS: methIMAzole 5 MG TABLET PO SCH (09:43)
[2019-07-15] MEDS: Gabapentin 400 MG CAPSULE PO SCH (09:43)
[2019-07-15] MEDS: MethylPREDNISolone 40 MG/ML VIAL IVP SCH ×2 (09:43→22:43)
[2019-07-15] MEDS: Loratadine 10 MG TABLET PO SCH (09:43)
[2019-07-15] MEDS: carvediloL 6.25 MG TABLET PO SCH ×2 (09:43→22:44)
[2019-07-15] MEDS: Fluticasone Propionate Nasal 50 MCG/SPRAY BOTTLE NS SCH (09:49)
[2019-07-15] MEDS: Budesonide/Formoterol 160/4.5 1 PUFF INH IH SCH ×2 (10:25→21:25)
[2019-07-15] MEDS ORDERED: VANCOMYCIN PER PHARMACY IVPB PRN (12:13)
[2019-07-15] MEDS ORDERED: Azithromycin 500 MG in 0.9 % Sodium Chloride 250 ML IVPB SCH (15:00)
[2019-07-15] MEDS: Doxycycline 100 MG CAPSULE PO SCH (18:11)
[2019-07-15] MEDS: Melatonin 3 MG TABLET PO SCH (22:43)
[2019-07-15] MEDS: Mirtazapine 15 MG TABLET PO SCH (22:44)
[2019-07-15] MEDS: *HR* HYDROcodone/Acet 5/325 mg TABLET PO PRN (23:22)
[2019-07-16] MEDS: Nystatin POWDER 30 GM BOTTLE TP SCH ×3 (00:49→15:36)
[2019-07-16] MEDS: Nystatin SUSP 5 ML UD.LIQ PO SCH ×5 (00:49→22:05)
[2019-07-16] MEDS: Heparin 25,000 UNIT/250 ML D5W 25,000 UNIT/250 ML IV.SOLN IVC SCH ×2 (02:00→17:41)
[2019-07-16] MEDS: Piperacillin/Tazobactam 3.375 GM in 0.9 % Sodium Chloride Mini Bag 100 ML IVPB SCH ×3 (03:03→19:24)
[2019-07-16] MEDS: Ipratropium/Albuterol Neb 3 ML IH SCH ×4 (03:53→21:14)
[2019-07-16 04:18] LABS: Basophils % 0.1 %; Eosinophils % 0.1 %; Hematocrit 38.5 % (35.3-44.9); Hemoglobin 12.1 g/dL (11.5-15.4); Immature Granulocytes % 0.9 % (0-4); Lymphocytes # 1.9 K/mcL (0.6-4.6); Lymphocytes % 7.9 %; Mean Corpuscular HGB Conc 31.4 g/dL (31.6-35.5); Mean Corpuscular Hemoglobin 29.2 pg (28.0-33.3); Mean Corpuscular Volume 92.8 fL (83.0-100.0); Monocytes # 1.7 K/mcL (0.0-1.3); Neutrophils # 20.2 K/mcL (1.6-8.9); Platelet Count 217 K/mcL (140-400); Red Blood Count 4.15 M/mcL (3.82-4.97); Red Cell Distribution Width 17.8 % (11.5-14.5)
[2019-07-16 04:36] LABS: Calcium 9.3 mg/dL (8.6-10.3); Potassium 3.9 mEq/L (3.5-5.1)
[2019-07-16] MEDS: Doxycycline 100 MG CAPSULE PO SCH ×2 (05:53→17:49)
[2019-07-16] MEDS: Loratadine 10 MG TABLET PO SCH (09:01)
[2019-07-16] MEDS: methIMAzole 5 MG TABLET PO SCH (09:02)
[2019-07-16] MEDS: carvediloL 6.25 MG TABLET PO SCH ×2 (09:02→22:04)
[2019-07-16] MEDS: Fluticasone Propionate Nasal 50 MCG/SPRAY BOTTLE NS SCH (09:05)
[2019-07-16] MEDS ORDERED: Furosemide 40 MG/4 ML VIAL IVP ONE (09:32)
[2019-07-16] MEDS: Budesonide/Formoterol 160/4.5 1 PUFF INH IH SCH ×2 (10:08→21:14)
[2019-07-16] MEDS: *HR* HYDROcodone/Acet 5/325 mg TABLET PO PRN ×2 (15:36→22:53)
[2019-07-16] MEDS: Mirtazapine 15 MG TABLET PO SCH (22:05)
[2019-07-16] MEDS: Melatonin 3 MG TABLET PO SCH (22:05)
[2019-07-17] MEDS: Nystatin POWDER 30 GM BOTTLE TP SCH ×4 (00:23→21:27)
[2019-07-17] MEDS: Piperacillin/Tazobactam 3.375 GM in 0.9 % Sodium Chloride Mini Bag 100 ML IVPB SCH ×3 (02:50→21:25)
[2019-07-17] MEDS: Ipratropium/Albuterol Neb 3 ML IH SCH ×4 (04:03→21:39)
[2019-07-17 04:36] LABS: Basophils % 0.1 %; Eosinophils # 0.2 K/mcL (0.0-0.6); Eosinophils % 0.8 %; Hematocrit 38.7 % (35.3-44.9); Hemoglobin 12.3 g/dL (11.5-15.4); Immature Granulocytes % 0.7 % (0-4); Lymphocytes # 2.3 K/mcL (0.6-4.6); Lymphocytes % 11.1 %; Mean Corpuscular HGB Conc 31.8 g/dL (31.6-35.5); Mean Corpuscular Hemoglobin 29.4 pg (28.0-33.3); Mean Corpuscular Volume 92.4 fL (83.0-100.0); Monocytes # 1.5 K/mcL (0.0-1.3); Monocytes % 7.1 %; Neutrophils # 16.3 K/mcL (1.6-8.9); Platelet Count 197 K/mcL (140-400); Red Blood Count 4.19 M/mcL (3.82-4.97); Red Cell Distribution Width 18.1 % (11.5-14.5); Segmented Neutrophils % 80.2 %; White Blood Count 20.4 K/mcL (4.3-11.1)
[2019-07-17 05:00] LABS: Calcium 9.4 mg/dL (8.6-10.3); Potassium 4.1 mEq/L (3.5-5.1)
[2019-07-17] MEDS: Doxycycline 100 MG CAPSULE PO SCH ×2 (05:20→18:20)
[2019-07-17] MEDS: *HR* Heparin 5,000 UNIT/ML VIAL IVP PRN (05:20)
[2019-07-17] MEDS: Nystatin SUSP 5 ML UD.LIQ PO SCH ×4 (08:34→21:23)
[2019-07-17] MEDS: Fluticasone Propionate Nasal 50 MCG/SPRAY BOTTLE NS SCH (08:34)
[2019-07-17] MEDS: carvediloL 6.25 MG TABLET PO SCH ×2 (08:35→21:25)
[2019-07-17] MEDS: methIMAzole 5 MG TABLET PO SCH (08:35)
[2019-07-17] MEDS: Loratadine 10 MG TABLET PO SCH (08:35)
[2019-07-17] MEDS: Budesonide/Formoterol 160/4.5 1 PUFF INH IH SCH ×2 (10:03→21:39)
[2019-07-17] MEDS: *HR* HYDROcodone/Acet 5/325 mg TABLET PO PRN ×2 (13:50→21:24)
[2019-07-17] MEDS: Heparin 25,000 UNIT/250 ML D5W 25,000 UNIT/250 ML IV.SOLN IVC SCH (18:24)
[2019-07-17] MEDS: Mirtazapine 15 MG TABLET PO SCH (21:23)
[2019-07-17] MEDS: Melatonin 3 MG TABLET PO SCH (21:25)
[2019-07-18 02:16] LABS: Basophils % 0.1 %; Eosinophils # 0.4 K/mcL (0.0-0.6); Eosinophils % 1.6 %; Hematocrit 36.8 % (35.3-44.9); Hemoglobin 11.6 g/dL (11.5-15.4); Immature Granulocytes % 0.6 % (0-4); Lymphocytes # 1.9 K/mcL (0.6-4.6); Lymphocytes % 8.2 %; Mean Corpuscular HGB Conc 31.5 g/dL (31.6-35.5); Mean Corpuscular Hemoglobin 28.9 pg (28.0-33.3); Mean Corpuscular Volume 91.5 fL (83.0-100.0); Mean Platelet Volume 12.2 fL (9.4-12.4); Monocytes # 1.6 K/mcL (0.0-1.3); Monocytes % 6.9 %; Neutrophils # 19.5 K/mcL (1.6-8.9); Platelet Count 208 K/mcL (140-400); Red Blood Count 4.02 M/mcL (3.82-4.97); Red Cell Distribution Width 17.9 % (11.5-14.5); Segmented Neutrophils % 82.6 %; White Blood Count 23.6 K/mcL (4.3-11.1)
[2019-07-18 02:35] LABS: Calcium 9.2 mg/dL (8.6-10.3); Potassium 4.2 mEq/L (3.5-5.1)
[2019-07-18] MEDS: Piperacillin/Tazobactam 3.375 GM in 0.9 % Sodium Chloride Mini Bag 100 ML IVPB SCH ×3 (03:15→18:35)
[2019-07-18] MEDS: Ipratropium/Albuterol Neb 3 ML IH SCH ×4 (03:19→20:56)
[2019-07-18] MEDS: *HR* Heparin 5,000 UNIT/ML VIAL IVP PRN (06:21)
[2019-07-18] MEDS: Doxycycline 100 MG CAPSULE PO SCH ×2 (06:21→18:35)
[2019-07-18] MEDS: methIMAzole 5 MG TABLET PO SCH (08:54)
[2019-07-18] MEDS: Nystatin SUSP 5 ML UD.LIQ PO SCH ×4 (08:55→21:08)
[2019-07-18] MEDS: Loratadine 10 MG TABLET PO SCH (08:55)
[2019-07-18] MEDS: carvediloL 6.25 MG TABLET PO SCH ×2 (08:55→21:09)
[2019-07-18] MEDS: Nystatin POWDER 30 GM BOTTLE TP SCH ×3 (08:56→21:09)
[2019-07-18] MEDS: Fluticasone Propionate Nasal 50 MCG/SPRAY BOTTLE NS SCH (09:00)
[2019-07-18] MEDS ORDERED: Furosemide 40 MG/4 ML VIAL IVP ONE (10:21)
[2019-07-18] MEDS: Budesonide/Formoterol 160/4.5 1 PUFF INH IH SCH ×2 (12:06→20:56)
[2019-07-18] MEDS: MethylPREDNISolone 40 MG/ML VIAL IVP SCH ×2 (12:42→18:45)
[2019-07-18] MEDS: Heparin 25,000 UNIT/250 ML D5W 25,000 UNIT/250 ML IV.SOLN IVC SCH (21:01)
[2019-07-18] MEDS: Mirtazapine 15 MG TABLET PO SCH (21:09)
[2019-07-18] MEDS: Melatonin 3 MG TABLET PO SCH (21:09)
[2019-07-19] MEDS: MethylPREDNISolone 40 MG/ML VIAL IVP SCH (00:36)
[2019-07-19] MEDS: Ipratropium/Albuterol Neb 3 ML IH SCH ×4 (03:52→22:24)
[2019-07-19] MEDS: Piperacillin/Tazobactam 3.375 GM in 0.9 % Sodium Chloride Mini Bag 100 ML IVPB SCH ×3 (04:29→21:43)
[2019-07-19] MEDS: Doxycycline 100 MG CAPSULE PO SCH ×2 (05:57→18:23)
[2019-07-19] MEDS: Heparin 25,000 UNIT/250 ML D5W 25,000 UNIT/250 ML IV.SOLN IVC SCH ×2 (09:10→21:50)
[2019-07-19] MEDS: Loratadine 10 MG TABLET PO SCH (09:18)
[2019-07-19] MEDS: carvediloL 6.25 MG TABLET PO SCH ×2 (09:18→21:44)
[2019-07-19] MEDS: Fluticasone Propionate Nasal 50 MCG/SPRAY BOTTLE NS SCH (09:19)
[2019-07-19] MEDS: methIMAzole 5 MG TABLET PO SCH (09:19)
[2019-07-19] MEDS: Nystatin SUSP 5 ML UD.LIQ PO SCH ×4 (09:19→21:45)
[2019-07-19 09:20] LABS: Basophils % 0.1 %; Hematocrit 39.5 % (35.3-44.9); Hemoglobin 12.8 g/dL (11.5-15.4); Immature Granulocytes % 1.2 % (0-4); Lymphocytes # 0.8 K/mcL (0.6-4.6); Lymphocytes % 3.7 %; Mean Corpuscular HGB Conc 32.4 g/dL (31.6-35.5); Mean Corpuscular Hemoglobin 29.6 pg (28.0-33.3); Mean Corpuscular Volume 91.4 fL (83.0-100.0); Mean Platelet Volume 11.6 fL (9.4-12.4); Monocytes # 0.2 K/mcL (0.0-1.3); Monocytes % 0.9 %; Neutrophils # 21.4 K/mcL (1.6-8.9); Platelet Count 214 K/mcL (140-400); Red Blood Count 4.32 M/mcL (3.82-4.97); Red Cell Distribution Width 17.6 % (11.5-14.5); Segmented Neutrophils % 94.1 %; White Blood Count 22.7 K/mcL (4.3-11.1)
[2019-07-19] MEDS: Nystatin POWDER 30 GM BOTTLE TP SCH ×3 (09:23→21:45)
[2019-07-19 09:33] LABS: Calcium 10.3 mg/dL (8.6-10.3); Potassium 4.1 mEq/L (3.5-5.1)
[2019-07-19 09:44] LABS: Platelet Estimate Normal (Normal)
[2019-07-19] MEDS: Budesonide/Formoterol 160/4.5 1 PUFF INH IH SCH ×2 (10:43→22:24)
[2019-07-19] MEDS ORDERED: Isovue-370 500 ML BOTTLE IVP ONE (12:33)
[2019-07-19] MEDS: predniSONE 10 MG TABLET PO SCH (16:11)
[2019-07-19] MEDS: *HR* HYDROcodone/Acet 5/325 mg TABLET PO PRN (18:23)
[2019-07-19] MEDS: Mirtazapine 15 MG TABLET PO SCH (21:44)
[2019-07-19] MEDS: Melatonin 3 MG TABLET PO SCH (21:44)
[2019-07-19] MEDS: *HR* Heparin 5,000 UNIT/ML VIAL IVP PRN (21:45)
[2019-07-20] MEDS: Ipratropium/Albuterol Neb 3 ML IH SCH ×4 (04:07→21:47)
[2019-07-20] MEDS: Piperacillin/Tazobactam 3.375 GM in 0.9 % Sodium Chloride Mini Bag 100 ML IVPB SCH ×3 (04:27→22:08)
[2019-07-20 06:09] LABS: Hematocrit 40.3 % (35.3-44.9); Hemoglobin 12.6 g/dL (11.5-15.4); Mean Corpuscular HGB Conc 31.3 g/dL (31.6-35.5); Mean Corpuscular Hemoglobin 29.5 pg (28.0-33.3); Mean Corpuscular Volume 94.4 fL (83.0-100.0); Mean Platelet Volume 12.3 fL (9.4-12.4); Platelet Count 239 K/mcL (140-400); Red Blood Count 4.27 M/mcL (3.82-4.97); Red Cell Distribution Width 17.7 % (11.5-14.5); White Blood Count 26.7 K/mcL (4.3-11.1)
[2019-07-20 06:29] LABS: Calcium 10.5 mg/dL (8.6-10.3); Magnesium 2.3 mg/dL (1.6-2.6); Phosphorous 3.5 mg/dL (2.7-4.5); Potassium 4.8 mEq/L (3.5-5.1)
[2019-07-20 08:03] LABS: Eosinophils # 0.5 K/mcL (0.0-0.6); Lymphocytes # 1.1 K/mcL (0.6-4.6); Monocytes # 0.5 K/mcL (0.0-1.3); Neutrophils # 24.6 K/mcL (1.6-8.9)
[2019-07-20 08:04] LABS: Anisocytosis 1+ (Not Present); Platelet Estimate Normal (Normal)
[2019-07-20] MEDS: Doxycycline 100 MG CAPSULE PO SCH ×2 (08:31→18:40)
[2019-07-20] MEDS: Loratadine 10 MG TABLET PO SCH (08:32)
[2019-07-20] MEDS: Fluticasone Propionate Nasal 50 MCG/SPRAY BOTTLE NS SCH (08:32)
[2019-07-20] MEDS: carvediloL 6.25 MG TABLET PO SCH ×2 (08:32→22:09)
[2019-07-20] MEDS: Nystatin SUSP 5 ML UD.LIQ PO SCH ×4 (08:32→22:09)
[2019-07-20] MEDS: Nystatin POWDER 30 GM BOTTLE TP SCH ×3 (08:32→22:09)
[2019-07-20] MEDS: predniSONE 10 MG TABLET PO SCH (08:33)
[2019-07-20] MEDS: methIMAzole 5 MG TABLET PO SCH (08:33)
[2019-07-20 09:36] LABS: ABG Base Excess 1 mEq/L (-2 to 3); ABG HCO3 23 mEq/L (21-27); ABG Oxygen Saturation 87 % (95-98); ABG PCO2 26 mmHg (35-45); ABG PH 7.54 pH Units (7.32-7.45); ABG PO2 45 mmHg (85-104); ABG TCO2 24 mEq/L (20-26); Blood Gas Modality NIV; Blood Gas Pressure Support 6 cm H2O
[2019-07-20] MEDS ORDERED: Furosemide 40 MG/4 ML VIAL IVP ONE (09:39)
[2019-07-20] MEDS ORDERED: Furosemide 40 MG/4 ML VIAL ONE (09:41)
[2019-07-20] MEDS: Budesonide/Formoterol 160/4.5 1 PUFF INH IH SCH ×2 (09:53→21:47)
[2019-07-20] MEDS: *HR* HYDROcodone/Acet 5/325 mg TABLET PO PRN ×2 (12:18→22:20)
[2019-07-20] MEDS: Heparin 25,000 UNIT/250 ML D5W 25,000 UNIT/250 ML IV.SOLN IVC SCH (16:44)
[2019-07-20] MEDS: Meropenem 1,000 MG in 0.9 % Sodium Chloride Mini Bag 100 ML IVPB SCH (18:39)
[2019-07-20] MEDS: Mirtazapine 15 MG TABLET PO SCH (22:09)
[2019-07-20] MEDS: Melatonin 3 MG TABLET PO SCH (22:09)
[2019-07-21] MEDS: Piperacillin/Tazobactam 3.375 GM in 0.9 % Sodium Chloride Mini Bag 100 ML IVPB SCH (04:12)
[2019-07-21] MEDS: Ipratropium/Albuterol Neb 3 ML IH SCH ×4 (04:22→22:48)
[2019-07-21 04:41] LABS: Basophils % 0.1 %; Eosinophils # 0.1 K/mcL (0.0-0.6); Eosinophils % 0.4 %; Hematocrit 38.6 % (35.3-44.9); Hemoglobin 12.4 g/dL (11.5-15.4); Immature Granulocytes % 0.8 % (0-4); Lymphocytes # 2.3 K/mcL (0.6-4.6); Mean Corpuscular HGB Conc 32.1 g/dL (31.6-35.5); Mean Corpuscular Hemoglobin 28.8 pg (28.0-33.3); Mean Corpuscular Volume 89.8 fL (83.0-100.0); Monocytes # 1.7 K/mcL (0.0-1.3); Monocytes % 7.3 %; Neutrophils # 18.6 K/mcL (1.6-8.9); Platelet Count 220 K/mcL (140-400); Red Cell Distribution Width 17.9 % (11.5-14.5); Segmented Neutrophils % 81.4 %; White Blood Count 22.8 K/mcL (4.3-11.1)
[2019-07-21 05:03] LABS: Calcium 10.3 mg/dL (8.6-10.3); Magnesium 2.1 mg/dL (1.6-2.6); Potassium 4.3 mEq/L (3.5-5.1)
[2019-07-21] MEDS: Meropenem 1,000 MG in 0.9 % Sodium Chloride Mini Bag 100 ML IVPB SCH ×2 (06:21→17:16)
[2019-07-21] MEDS: Doxycycline 100 MG CAPSULE PO SCH (06:21)
[2019-07-21] MEDS: *HR* HYDROcodone/Acet 5/325 mg TABLET PO PRN ×2 (06:30→22:27)
[2019-07-21] MEDS: Fluticasone Propionate Nasal 50 MCG/SPRAY BOTTLE NS SCH (08:37)
[2019-07-21] MEDS: Nystatin SUSP 5 ML UD.LIQ PO SCH ×4 (08:37→22:27)
[2019-07-21] MEDS: predniSONE 10 MG TABLET PO SCH (08:37)
[2019-07-21] MEDS: carvediloL 6.25 MG TABLET PO SCH ×2 (08:37→22:26)
[2019-07-21] MEDS: methIMAzole 5 MG TABLET PO SCH (08:38)
[2019-07-21] MEDS: Loratadine 10 MG TABLET PO SCH (08:38)
[2019-07-21] MEDS: Budesonide/Formoterol 160/4.5 1 PUFF INH IH SCH ×2 (09:47→22:48)
[2019-07-21] MEDS: Nystatin POWDER 30 GM BOTTLE TP SCH ×3 (13:02→22:26)
[2019-07-21] MEDS: Heparin 25,000 UNIT/250 ML D5W 25,000 UNIT/250 ML IV.SOLN IVC SCH (15:50)
[2019-07-21] MEDS ORDERED: 0.9 % Sodium Chloride 250 ML IVC ONE (16:01)
[2019-07-21] MEDS ORDERED: Isovue-370 500 ML BOTTLE IVP ONE (16:57)
[2019-07-21] MEDS: Melatonin 3 MG TABLET PO SCH (22:26)
[2019-07-21] MEDS: Mirtazapine 15 MG TABLET PO SCH (22:26)
[2019-07-21] MEDS: *HR* Heparin 5,000 UNIT/ML VIAL SQ SCH (22:27)
[2019-07-21] MEDS: *HR* Acetylcysteine 20% 600 MG/3 ML ORAL SYRINGE PO SCH (23:11)
[2019-07-22] MEDS: Ipratropium/Albuterol Neb 3 ML IH SCH ×4 (04:01→21:35)
[2019-07-22 04:52] LABS: Basophils % 0.1 %; Eosinophils # 0.2 K/mcL (0.0-0.6); Eosinophils % 0.7 %; Hematocrit 33.1 % (35.3-44.9); Immature Granulocytes % 0.9 % (0-4); Lymphocytes # 2.2 K/mcL (0.6-4.6); Lymphocytes % 9.4 %; Mean Corpuscular Hemoglobin 29.6 pg (28.0-33.3); Mean Corpuscular Volume 92.5 fL (83.0-100.0); Mean Platelet Volume 11.7 fL (9.4-12.4); Monocytes # 1.3 K/mcL (0.0-1.3); Monocytes % 5.5 %; Neutrophils # 19.2 K/mcL (1.6-8.9); Platelet Count 181 K/mcL (140-400); Red Blood Count 3.58 M/mcL (3.82-4.97); Red Cell Distribution Width 17.5 % (11.5-14.5); Segmented Neutrophils % 83.4 %
[2019-07-22 04:53] LABS: Hemoglobin 10.6 g/dL (11.5-15.4)
[2019-07-22 05:06] LABS: Calcium 9.6 mg/dL (8.6-10.3); Magnesium 2.1 mg/dL (1.6-2.6); Phosphorous 3.2 mg/dL (2.7-4.5); Potassium 3.9 mEq/L (3.5-5.1)
[2019-07-22] MEDS: *HR* Heparin 5,000 UNIT/ML VIAL SQ SCH ×3 (05:43→22:33)
[2019-07-22] MEDS: Meropenem 1,000 MG in 0.9 % Sodium Chloride Mini Bag 100 ML IVPB SCH ×2 (05:43→18:41)
[2019-07-22] MEDS: Loratadine 10 MG TABLET PO SCH (09:11)
[2019-07-22] MEDS: Nystatin SUSP 5 ML UD.LIQ PO SCH ×4 (09:11→22:33)
[2019-07-22] MEDS: predniSONE 10 MG TABLET PO SCH (09:12)
[2019-07-22] MEDS: methIMAzole 5 MG TABLET PO SCH (09:12)
[2019-07-22] MEDS: carvediloL 6.25 MG TABLET PO SCH ×2 (09:12→22:33)
[2019-07-22] MEDS: *HR* Acetylcysteine 20% 600 MG/3 ML ORAL SYRINGE PO SCH (09:14)
[2019-07-22] MEDS: Fluticasone Propionate Nasal 50 MCG/SPRAY BOTTLE NS SCH (09:14)
[2019-07-22] MEDS: Nystatin POWDER 30 GM BOTTLE TP SCH ×3 (09:17→22:32)
[2019-07-22] MEDS: Budesonide/Formoterol 160/4.5 1 PUFF INH IH SCH ×2 (10:29→21:35)
[2019-07-22] MEDS: Melatonin 3 MG TABLET PO SCH (22:33)
[2019-07-22] MEDS: *HR* HYDROcodone/Acet 5/325 mg TABLET PO PRN (22:33)
[2019-07-22] MEDS: Mirtazapine 15 MG TABLET PO SCH (22:33)
[2019-07-23] MEDS: Ipratropium/Albuterol Neb 3 ML IH SCH ×4 (03:20→21:49)
[2019-07-23 05:29] LABS: Basophils % 0.1 %; Eosinophils # 0.2 K/mcL (0.0-0.6); Eosinophils % 1.2 %; Hematocrit 34.1 % (35.3-44.9); Hemoglobin 10.7 g/dL (11.5-15.4); Immature Granulocytes % 0.8 % (0-4); Lymphocytes # 2.3 K/mcL (0.6-4.6); Lymphocytes % 11.6 %; Mean Corpuscular HGB Conc 31.4 g/dL (31.6-35.5); Mean Corpuscular Hemoglobin 29.1 pg (28.0-33.3); Mean Corpuscular Volume 92.7 fL (83.0-100.0); Mean Platelet Volume 11.7 fL (9.4-12.4); Monocytes # 0.8 K/mcL (0.0-1.3); Monocytes % 3.8 %; Neutrophils # 16.6 K/mcL (1.6-8.9); Platelet Count 191 K/mcL (140-400); Red Blood Count 3.68 M/mcL (3.82-4.97); Red Cell Distribution Width 17.5 % (11.5-14.5); Segmented Neutrophils % 82.5 %; White Blood Count 20.1 K/mcL (4.3-11.1)
[2019-07-23 05:46] LABS: BUN/Creatinine Ratio 32 (6-26); Blood Urea Nitrogen 30 mg/dL (8-23); Calcium 9.7 mg/dL (8.6-10.3); Carbon Dioxide 23 mEq/L (23-29); Chloride 104 mEq/L (98-107); Glucose 131 mg/dL (70-105); Magnesium 2.1 mg/dL (1.6-2.6); Osmolality,Calculated 290 (280-300); Phosphorous 2.8 mg/dL (2.7-4.5); Potassium 4.1 mEq/L (3.5-5.1); Sodium 136 mEq/L (136-145); eGFR For African Americans > 60 (> 60); eGFR For Non-African Americans 56 (> 60)
[2019-07-23] MEDS: *HR* Heparin 5,000 UNIT/ML VIAL SQ SCH ×3 (06:18→22:40)
[2019-07-23] MEDS: Meropenem 1,000 MG in 0.9 % Sodium Chloride Mini Bag 100 ML IVPB SCH ×2 (06:19→18:50)
[2019-07-23] MEDS ORDERED: *HR* Acetylcysteine 20% 600 MG/3 ML ORAL SYRINGE PO ONE (09:00)
[2019-07-23] MEDS: methIMAzole 5 MG TABLET PO SCH (09:27)
[2019-07-23] MEDS: carvediloL 6.25 MG TABLET PO SCH ×2 (09:27→22:40)
[2019-07-23] MEDS: Loratadine 10 MG TABLET PO SCH (09:28)
[2019-07-23] MEDS: Nystatin POWDER 30 GM BOTTLE TP SCH ×3 (09:28→22:39)
[2019-07-23] MEDS: predniSONE 10 MG TABLET PO SCH (09:28)
[2019-07-23] MEDS: Fluticasone Propionate Nasal 50 MCG/SPRAY BOTTLE NS SCH (09:28)
[2019-07-23] MEDS: Nystatin SUSP 5 ML UD.LIQ PO SCH ×4 (09:29→22:41)
[2019-07-23] MEDS: Budesonide/Formoterol 160/4.5 1 PUFF INH IH SCH ×2 (10:45→21:49)
[2019-07-23] MEDS: *HR* HYDROcodone/Acet 5/325 mg TABLET PO PRN (22:41)
[2019-07-23] MEDS: Mirtazapine 15 MG TABLET PO SCH (22:41)
[2019-07-23] MEDS: Melatonin 3 MG TABLET PO SCH (22:41)
[2019-07-24] MEDS: Ipratropium/Albuterol Neb 3 ML IH SCH ×4 (03:54→22:35)
[2019-07-24 05:40] LABS: Basophils % 0.1 %; Eosinophils # 0.3 K/mcL (0.0-0.6); Eosinophils % 1.4 %; Hematocrit 34.7 % (35.3-44.9); Hemoglobin 10.8 g/dL (11.5-15.4); Immature Granulocytes % 0.9 % (0-4); Lymphocytes # 2.7 K/mcL (0.6-4.6); Lymphocytes % 14.6 %; Mean Corpuscular HGB Conc 31.1 g/dL (31.6-35.5); Mean Corpuscular Hemoglobin 28.9 pg (28.0-33.3); Mean Corpuscular Volume 92.8 fL (83.0-100.0); Mean Platelet Volume 11.6 fL (9.4-12.4); Monocytes # 0.7 K/mcL (0.0-1.3); Monocytes % 3.9 %; Neutrophils # 14.8 K/mcL (1.6-8.9); Platelet Count 207 K/mcL (140-400); Red Blood Count 3.74 M/mcL (3.82-4.97); Red Cell Distribution Width 17.3 % (11.5-14.5); Segmented Neutrophils % 79.1 %; White Blood Count 18.7 K/mcL (4.3-11.1)
[2019-07-24 05:54] LABS: BUN/Creatinine Ratio 33 (6-26); Blood Urea Nitrogen 30 mg/dL (8-23); Calcium 9.9 mg/dL (8.6-10.3); Carbon Dioxide 24 mEq/L (23-29); Chloride 105 mEq/L (98-107); Glucose 102 mg/dL (70-105); Magnesium 2.1 mg/dL (1.6-2.6); Osmolality,Calculated 292 (280-300); Phosphorous 2.6 mg/dL (2.7-4.5); Potassium 4.5 mEq/L (3.5-5.1); Sodium 138 mEq/L (136-145); eGFR For African Americans > 60 (> 60); eGFR For Non-African Americans 58 (> 60)
[2019-07-24] MEDS: *HR* Heparin 5,000 UNIT/ML VIAL SQ SCH ×3 (07:17→21:48)
[2019-07-24] MEDS: Meropenem 1,000 MG in 0.9 % Sodium Chloride Mini Bag 100 ML IVPB SCH ×2 (07:18→18:15)
[2019-07-24] MEDS: Fluticasone Propionate Nasal 50 MCG/SPRAY BOTTLE NS SCH (08:45)
[2019-07-24] MEDS: carvediloL 6.25 MG TABLET PO SCH ×2 (08:45→21:48)
[2019-07-24] MEDS: predniSONE 10 MG TABLET PO SCH (08:45)
[2019-07-24] MEDS: methIMAzole 5 MG TABLET PO SCH (08:45)
[2019-07-24] MEDS: Loratadine 10 MG TABLET PO SCH (08:45)
[2019-07-24] MEDS: Nystatin POWDER 30 GM BOTTLE TP SCH ×3 (08:55→21:48)
[2019-07-24] MEDS: Nystatin SUSP 5 ML UD.LIQ PO SCH ×4 (08:55→21:47)
[2019-07-24] MEDS: Budesonide/Formoterol 160/4.5 1 PUFF INH IH SCH ×2 (09:31→22:35)
[2019-07-24 14:13] LABS: ANA IgG by ELISA NONE DETECTED (None Detected)
[2019-07-24] MEDS ORDERED: Aminoglycoside Consult 1 EACH MC ONE (15:41)
[2019-07-24] MEDS: Melatonin 3 MG TABLET PO SCH (21:47)
[2019-07-24] MEDS: Mirtazapine 15 MG TABLET PO SCH (21:48)
[2019-07-24] MEDS ORDERED: *HR* HYDROcodone/Acet 5/325 mg TABLET PO ONE (21:52)
[2019-07-25] MEDS: Ipratropium/Albuterol Neb 3 ML IH SCH ×2 (04:08→10:41)
[2019-07-25] MEDS: *HR* Heparin 5,000 UNIT/ML VIAL SQ SCH (06:07)
[2019-07-25 07:01] VITALS: BP 143/79
[2019-07-25 07:02] LABS: BUN/Creatinine Ratio 31 (6-26); Blood Urea Nitrogen 32 mg/dL (8-23); Calcium 9.9 mg/dL (8.6-10.3); Carbon Dioxide 25 mEq/L (23-29); Chloride 102 mEq/L (98-107); Glucose 93 mg/dL (70-105); Magnesium 2.1 mg/dL (1.6-2.6); Osmolality,Calculated 291 (280-300); Phosphorous 2.7 mg/dL (2.7-4.5); Potassium 4.6 mEq/L (3.5-5.1); Sodium 137 mEq/L (136-145); eGFR For African Americans > 60 (> 60); eGFR For Non-African Americans 51 (> 60)
[2019-07-25 07:13] LABS: Basophils % 0.2 %; Eosinophils # 0.2 K/mcL (0.0-0.6); Eosinophils % 1.2 %; Hematocrit 33.8 % (35.3-44.9); Hemoglobin 10.7 g/dL (11.5-15.4); Immature Granulocytes % 1.2 % (0-4); Lymphocytes # 3.3 K/mcL (0.6-4.6); Lymphocytes % 20.1 %; Mean Corpuscular HGB Conc 31.7 g/dL (31.6-35.5); Mean Corpuscular Hemoglobin 29.6 pg (28.0-33.3); Mean Corpuscular Volume 93.4 fL (83.0-100.0); Mean Platelet Volume 11.5 fL (9.4-12.4); Monocytes # 0.7 K/mcL (0.0-1.3); Monocytes % 4.1 %; Neutrophils # 12.2 K/mcL (1.6-8.9); Platelet Count 222 K/mcL (140-400); Red Blood Count 3.62 M/mcL (3.82-4.97); Red Cell Distribution Width 17.2 % (11.5-14.5); Segmented Neutrophils % 73.2 %; White Blood Count 16.6 K/mcL (4.3-11.1)
[2019-07-25] MEDS: predniSONE 10 MG TABLET PO SCH (08:10)
[2019-07-25] MEDS: Lisinopril 20 MG TABLET PO SCH (08:10)
[2019-07-25] MEDS: Nystatin SUSP 5 ML UD.LIQ PO SCH ×2 (08:10→12:07)
[2019-07-25] MEDS: Loratadine 10 MG TABLET PO SCH (08:11)
[2019-07-25] MEDS: carvediloL 6.25 MG TABLET PO SCH (08:11)
[2019-07-25] MEDS: methIMAzole 5 MG TABLET PO SCH (08:11)
[2019-07-25] MEDS: Budesonide/Formoterol 160/4.5 1 PUFF INH IH SCH (10:41)
[2019-07-25] MEDS: Nystatin POWDER 30 GM BOTTLE TP SCH (12:07)
[2019-07-25] MEDS: Fluticasone Propionate Nasal 50 MCG/SPRAY BOTTLE NS SCH (12:07)
== END 2019-07-25 15:42 | disposition hospice, home (50) | DRG 177 ==
LOC: 2NENU 13:39 → EMEROOARM 13:39 → SUATTDRO 16:22 → 2NENU 18:11
PROVIDERS: ADMIT Internal Medicine; ATTEND Internal Medicine

== ENCOUNTER 2021-01-03 09:25 | Inpatient (IN) ==
[2021-01-03] MEDS ORDERED: 0.9 % Sodium Chloride 1,000 ML IVC ONE ×2 (09:36→10:57)
[2021-01-03 10:16] LABS: Mean Corpuscular Hemoglobin 27.1 pg (28.0-33.3)
[2021-01-03 10:18] LABS: Hematocrit 35.9 % (35.3-44.9); Hemoglobin 10.8 g/dL (11.5-15.4); Mean Corpuscular HGB Conc 30.1 g/dL (31.6-35.5); Platelet Count 351 K/mcL (140-400); Red Blood Count 3.99 M/mcL (3.82-4.97); Red Cell Distribution Width 17.3 % (11.5-14.5); White Blood Count 27.1 K/mcL (4.3-11.1)
[2021-01-03 10:23] LABS: VBG HCO3 30 mEq/L (21-27); VBG PCO2 54 mmHg (41-51); VBG PH 7.34 pH Units (7.32-7.42); VBG PO2 73 mmHg (25-50)
[2021-01-03 10:24] LABS: INR 1.6; Prothrombin Time 17.8 Seconds (9.4-12.1)
[2021-01-03 10:26] LABS: Activated Partial Thrombo Time 24.6 Seconds (26.0-36.0)
[2021-01-03 10:47] LABS: Anisocytosis 1+ (Not Present); Basophils # 0.5 K/mcL (0.0-0.2); Lymphocytes # 2.7 K/mcL (0.6-4.6); Monocytes # 2.2 K/mcL (0.0-1.3); Neutrophils # 21.7 K/mcL (1.6-8.9); Troponin I 0.04 ng/mL (< 0.04)
[2021-01-03 10:48] LABS: Platelet Estimate Normal (Normal)
[2021-01-03 10:53] LABS: Thyroid Stimulating Hormone 1.023 mcIU/mL (0.340-5.600)
[2021-01-03 10:54] LABS: Calcium 9.6 mg/dL (8.6-10.3); Magnesium 2.3 mg/dL (1.6-2.6); Potassium 4.1 mEq/L (3.5-5.1)
[2021-01-03] MEDS ORDERED: Aspirin 325 MG TABLET PO ONE (10:57)
[2021-01-03] MEDS ORDERED: Ipratropium/Albuterol Neb 3 ML IH ONE (11:43)
[2021-01-03] MEDS ORDERED: Ipratropium/Albuterol Neb 3 ML ONE (11:45)
[2021-01-03] MEDS: DilTIAZem 50 MG/50 ML IV.SOLN IVC SCH ×2 (12:20→17:18)
[2021-01-03] MEDS ORDERED: Piperacillin/Tazobactam 3.375 GM in 0.9 % Sodium Chloride Mini Bag 100 ML IVPB ONE (13:01)
[2021-01-03] MEDS ORDERED: Vancomycin 1,500 MG/265 ML IV.SOLN IVPB ONE (14:00)
[2021-01-03] MEDS ORDERED: Ondansetron 4 MG/2 ML VIAL IVP PRN (15:19)
[2021-01-03] MEDS ORDERED: Naloxone 0.4 MG/ML INJ IVP PRN (15:19)
[2021-01-03] MEDS: Vancomycin 1,250 MG/262.5 ML IV.SOLN IVPB SCH (17:18)
[2021-01-03] MEDS: Acetaminophen 325 MG TABLET PO PRN (17:41)
[2021-01-03] MEDS: *HR* HYDROcodone/Acet 7.5/325 mg TABLET PO PRN (17:59)
[2021-01-03] MEDS: Levalbuterol Neb 0.63 MG/3 ML IH SCH ×3 (19:52→22:32)
[2021-01-03] MEDS: Ipratropium Neb 0.5 MG NEBULIZER IH SCH ×3 (19:52→22:32)
[2021-01-03] MEDS ORDERED: *HR* Digoxin 0.5 MG/2 ML AMPUL IVP SCH (20:36)
[2021-01-03] MEDS: Piperacillin/Tazobactam 3.375 GM in 0.9 % Sodium Chloride Mini Bag 100 ML IVPB SCH (21:02)
[2021-01-03] MEDS: *HR* Heparin 5,000 UNIT/ML VIAL SQ SCH (21:02)
[2021-01-03] MEDS: Melatonin 3 MG TABLET PO SCH (22:01)
[2021-01-03] MEDS: BuPROPion XL (24 HR) 150 MG TABLET PO SCH (22:02)
[2021-01-03] MEDS: traZODone 50 MG TABLET PO SCH (22:02)
[2021-01-03] MEDS: Gabapentin 400 MG CAPSULE PO SCH (22:03)
[2021-01-03] MEDS: Mirtazapine 15 MG TABLET PO SCH (22:03)
[2021-01-03] MEDS: Fluticasone Propionate Nasal 50 MCG/SPRAY BOTTLE NS SCH (22:03)
[2021-01-03] MEDS: tiZANidine 4 MG TABLET PO SCH (22:03)
[2021-01-03] MEDS: 0.9 % Sodium Chloride 1,000 ML IVC SCH (22:04)
[2021-01-03] MEDS ORDERED: Levalbuterol Neb 1.25 MG/3 ML ONE (22:26)
[2021-01-03] MEDS ORDERED: Levalbuterol Neb 0.63 MG/3 ML ONE (22:27)
[2021-01-03] MEDS ORDERED: Ipratropium Neb 0.5 MG NEBULIZER ONE (22:27)
[2021-01-04] MEDS: Ipratropium Neb 0.5 MG NEBULIZER IH SCH ×4 (03:38→22:47)
[2021-01-04] MEDS: Levalbuterol Neb 0.63 MG/3 ML IH SCH ×4 (03:38→22:47)
[2021-01-04] MEDS: Piperacillin/Tazobactam 3.375 GM in 0.9 % Sodium Chloride Mini Bag 100 ML IVPB SCH ×3 (04:54→20:13)
[2021-01-04] MEDS: *HR* Heparin 5,000 UNIT/ML VIAL SQ SCH ×3 (04:54→20:18)
[2021-01-04 07:45] LABS: Mean Platelet Volume 11.2 fL (9.4-12.4); Red Cell Distribution Width 17.7 % (11.5-14.5)
[2021-01-04 07:47] LABS: Hematocrit 34.9 % (35.3-44.9); Hemoglobin 10.4 g/dL (11.5-15.4); Lymphocytes # 1.6 K/mcL (0.6-4.6); Mean Corpuscular HGB Conc 29.8 g/dL (31.6-35.5); Mean Corpuscular Hemoglobin 27.6 pg (28.0-33.3); Mean Corpuscular Volume 92.6 fL (83.0-100.0); Platelet Count 268 K/mcL (140-400); Red Blood Count 3.77 M/mcL (3.82-4.97); White Blood Count 27.4 K/mcL (4.3-11.1)
[2021-01-04 07:56] LABS: Estimated Average Glucose 126 mg/dl
[2021-01-04] MEDS ORDERED: carvediloL 25 MG TABLET PO SCH (08:00)
[2021-01-04 08:12] LABS: Albumin 2.8 g/dL (3.5-5.7); Albumin/Globulin Ratio 0.9 (1.1-2.2); Bilirubin,Direct 0.1 mg/dL (0.0-0.2); Bilirubin,Indirect 0.3 mg/dL (0.0-1.0); Bilirubin,Total 0.4 mg/dL (0.3-1.0); Calcium 9.2 mg/dL (8.6-10.3); Globulin 3.1 g/dL (2.4-3.5); Magnesium 2.3 mg/dL (1.6-2.6); Potassium 3.9 mEq/L (3.5-5.1); Total Protein 5.9 g/dL (6.4-8.9)
[2021-01-04] MEDS: BuPROPion XL (24 HR) 150 MG TABLET PO SCH ×2 (08:15→20:15)
[2021-01-04] MEDS: allopurinoL 300 MG TABLET PO SCH (08:15)
[2021-01-04] MEDS: MethylPREDNISolone 40 MG/ML VIAL IVP SCH ×3 (08:16→16:50)
[2021-01-04 08:18] LABS: Eosinophils # 2.7 K/mcL (0.0-0.6); Monocytes # 2.2 K/mcL (0.0-1.3); Neutrophils # 20.8 K/mcL (1.6-8.9); Platelet Estimate Normal (Normal)
[2021-01-04 08:26] LABS: Troponin I 0.05 ng/mL (< 0.04)
[2021-01-04] MEDS ORDERED: *HR* Digoxin 0.5 MG/2 ML AMPUL IVP ONE (08:39)
[2021-01-04] MEDS ORDERED: *HR* Digoxin 0.125 MG TABLET PO SCH (09:00)
[2021-01-04] MEDS: 0.9 % Sodium Chloride 1,000 ML IVC SCH (09:10)
[2021-01-04] MEDS ORDERED: Morphine Sulfate 2 MG/ML SYRINGE IVP ONE (10:13)
[2021-01-04] MEDS: Fluticasone Propionate Nasal 50 MCG/SPRAY BOTTLE NS SCH ×2 (10:17→20:18)
[2021-01-04] MEDS ORDERED: Fluconazole 150 MG TABLET PO ONE (11:02)
[2021-01-04] MEDS: Nystatin POWDER 30 GM BOTTLE TP SCH ×2 (12:45→20:15)
[2021-01-04] MEDS ORDERED: Isovue-370 500 ML BOTTLE IVP ONE (15:36)
[2021-01-04] MEDS: Metoprolol XL (24 HR) Succ 25 MG TAB.ER.24H PO SCH (16:49)
[2021-01-04] MEDS: Vancomycin 1,250 MG/262.5 ML IV.SOLN IVPB SCH (18:51)
[2021-01-04] MEDS: traZODone 50 MG TABLET PO SCH (20:15)
[2021-01-04] MEDS: Melatonin 3 MG TABLET PO SCH (20:15)
[2021-01-04] MEDS: Gabapentin 400 MG CAPSULE PO SCH (20:15)
[2021-01-04] MEDS: Mirtazapine 15 MG TABLET PO SCH (20:15)
[2021-01-04] MEDS: tiZANidine 4 MG TABLET PO SCH (20:15)
[2021-01-04] MEDS: Famotidine 20 MG TABLET PO SCH (20:16)
[2021-01-04] MEDS: *HR* HYDROcodone/Acet 7.5/325 mg TABLET PO PRN (20:41)
[2021-01-04] MEDS ORDERED: Famotidine 20 MG TABLET PO SCH (21:00)
[2021-01-05] MEDS: MethylPREDNISolone 40 MG/ML VIAL IVP SCH ×4 (00:37→23:47)
[2021-01-05 03:14] LABS: Basophils % 0.1 %; Eosinophils % 0.1 %; Hematocrit 32.8 % (35.3-44.9); Hemoglobin 9.9 g/dL (11.5-15.4); Immature Granulocytes % 0.8 % (0-4); Lymphocytes # 0.6 K/mcL (0.6-4.6); Lymphocytes % 3.2 %; Mean Corpuscular HGB Conc 30.2 g/dL (31.6-35.5); Mean Corpuscular Hemoglobin 27.6 pg (28.0-33.3); Mean Corpuscular Volume 91.4 fL (83.0-100.0); Mean Platelet Volume 11.3 fL (9.4-12.4); Monocytes # 0.3 K/mcL (0.0-1.3); Monocytes % 1.5 %; Neutrophils # 16.8 K/mcL (1.6-8.9); Platelet Count 278 K/mcL (140-400); Red Blood Count 3.59 M/mcL (3.82-4.97); Red Cell Distribution Width 17.5 % (11.5-14.5); Segmented Neutrophils % 94.3 %; White Blood Count 17.8 K/mcL (4.3-11.1)
[2021-01-05 03:32] LABS: INR 1.4; Prothrombin Time 16.4 Seconds (9.4-12.1)
[2021-01-05 03:33] LABS: Calcium 9.2 mg/dL (8.6-10.3); Magnesium 2.3 mg/dL (1.6-2.6); Potassium 4.5 mEq/L (3.5-5.1)
[2021-01-05] MEDS: Levalbuterol Neb 0.63 MG/3 ML IH SCH ×4 (03:48→22:42)
[2021-01-05] MEDS: Ipratropium Neb 0.5 MG NEBULIZER IH SCH ×4 (03:48→22:42)
[2021-01-05] MEDS: Piperacillin/Tazobactam 3.375 GM in 0.9 % Sodium Chloride Mini Bag 100 ML IVPB SCH ×3 (06:02→20:46)
[2021-01-05] MEDS: *HR* Heparin 5,000 UNIT/ML VIAL SQ SCH ×3 (06:02→20:46)
[2021-01-05] MEDS: allopurinoL 300 MG TABLET PO SCH (08:06)
[2021-01-05] MEDS: Fluticasone Propionate Nasal 50 MCG/SPRAY BOTTLE NS SCH ×2 (08:09→20:47)
[2021-01-05] MEDS: Famotidine 20 MG TABLET PO SCH ×2 (08:10→20:45)
[2021-01-05] MEDS: Nystatin POWDER 30 GM BOTTLE TP SCH ×3 (08:10→20:47)
[2021-01-05] MEDS: BuPROPion XL (24 HR) 150 MG TABLET PO SCH ×2 (08:11→20:45)
[2021-01-05] MEDS: Metoprolol XL (24 HR) Succ 25 MG TAB.ER.24H PO SCH (08:11)
[2021-01-05] MEDS ORDERED: Simethicone 80 MG TAB.CHEW PO PRN (08:14)
[2021-01-05] MEDS ORDERED: Metoprolol XL (24 HR) Succ 25 MG TAB.ER.24H PO SCH ×2 (09:00→21:00)
[2021-01-05] MEDS ORDERED: *HR* Digoxin 0.125 MG TABLET PO SCH (09:00)
[2021-01-05] MEDS ORDERED: Famotidine 20 MG TABLET PO SCH (09:00)
[2021-01-05] MEDS: polyethylene glycoL 3350 17 GM POWD.PACK PO SCH (09:55)
[2021-01-05] MEDS ORDERED: *HR* LORazepam 0.5 MG TABLET PO PRN (12:11)
[2021-01-05 12:30] LABS: Glucose,Pleural Fluid < 10 mg/dL (No Ref Range); LDH,Pleural Fluid > 1200 Units/L (No Ref Range); Total Protein,Pleural Fluid 3.1 g/dL
[2021-01-05 12:50] LABS: RBC,Pleural Fluid 26000 RBC/mcL
[2021-01-05 13:16] LABS: Appearance of Pleural Fl Cloudy (Clear)
[2021-01-05] MEDS: Vancomycin 1,250 MG/262.5 ML IV.SOLN IVPB SCH (18:29)
[2021-01-05] MEDS: Gabapentin 400 MG CAPSULE PO SCH (20:45)
[2021-01-05] MEDS: Mirtazapine 15 MG TABLET PO SCH (20:45)
[2021-01-05] MEDS: tiZANidine 4 MG TABLET PO SCH (20:46)
[2021-01-05] MEDS: traZODone 50 MG TABLET PO SCH (20:46)
[2021-01-05] MEDS: Melatonin 3 MG TABLET PO SCH (20:46)
[2021-01-06 01:07] LABS: Basophils % 0.1 %; Hematocrit 32.4 % (35.3-44.9); Hemoglobin 9.7 g/dL (11.5-15.4); Lymphocytes # 0.7 K/mcL (0.6-4.6); Lymphocytes % 3.3 %; Mean Corpuscular HGB Conc 29.9 g/dL (31.6-35.5); Mean Corpuscular Hemoglobin 27.3 pg (28.0-33.3); Mean Corpuscular Volume 91.3 fL (83.0-100.0); Mean Platelet Volume 11.3 fL (9.4-12.4); Monocytes # 0.7 K/mcL (0.0-1.3); Monocytes % 3.2 %; Neutrophils # 20.4 K/mcL (1.6-8.9); Platelet Count 294 K/mcL (140-400); Red Blood Count 3.55 M/mcL (3.82-4.97); Red Cell Distribution Width 17.4 % (11.5-14.5); Segmented Neutrophils % 92.4 %; White Blood Count 22.1 K/mcL (4.3-11.1)
[2021-01-06 01:54] LABS: Calcium 9.3 mg/dL (8.6-10.3); Potassium 4.2 mEq/L (3.5-5.1)
[2021-01-06] MEDS: Ipratropium Neb 0.5 MG NEBULIZER IH SCH ×4 (04:38→21:31)
[2021-01-06] MEDS: Levalbuterol Neb 0.63 MG/3 ML IH SCH ×4 (04:38→21:31)
[2021-01-06] MEDS: *HR* Heparin 5,000 UNIT/ML VIAL SQ SCH ×3 (05:00→20:06)
[2021-01-06] MEDS: Piperacillin/Tazobactam 3.375 GM in 0.9 % Sodium Chloride Mini Bag 100 ML IVPB SCH ×3 (05:01→20:01)
[2021-01-06] MEDS ORDERED: *HR* Digoxin 0.125 MG TABLET PO SCH (09:00)
[2021-01-06] MEDS: allopurinoL 300 MG TABLET PO SCH (09:47)
[2021-01-06] MEDS: Metoprolol XL (24 HR) Succ 50 MG TAB.ER.24H PO SCH ×2 (09:47→20:05)
[2021-01-06] MEDS: MethylPREDNISolone 40 MG/ML VIAL IVP SCH ×2 (09:47→15:50)
[2021-01-06] MEDS: BuPROPion XL (24 HR) 150 MG TABLET PO SCH ×2 (09:47→20:05)
[2021-01-06] MEDS: Nystatin POWDER 30 GM BOTTLE TP SCH ×3 (09:47→20:07)
[2021-01-06] MEDS: Famotidine 20 MG TABLET PO SCH ×2 (09:47→20:05)
[2021-01-06] MEDS: Furosemide 20 MG/2 ML VIAL IVP SCH (09:48)
[2021-01-06] MEDS: polyethylene glycoL 3350 17 GM POWD.PACK PO SCH (09:48)
[2021-01-06] MEDS: Fluticasone Propionate Nasal 50 MCG/SPRAY BOTTLE NS SCH ×2 (09:48→20:06)
[2021-01-06] MEDS: *HR* HYDROcodone/Acet 7.5/325 mg TABLET PO PRN ×2 (15:50→22:49)
[2021-01-06] MEDS: Vancomycin 1,500 MG/265 ML IV.SOLN IVPB SCH (18:30)
[2021-01-06] MEDS: Melatonin 3 MG TABLET PO SCH (20:05)
[2021-01-06] MEDS: traZODone 50 MG TABLET PO SCH (20:05)
[2021-01-06] MEDS: Mirtazapine 15 MG TABLET PO SCH (20:06)
[2021-01-06] MEDS: tiZANidine 4 MG TABLET PO SCH (20:06)
[2021-01-06] MEDS: Gabapentin 400 MG CAPSULE PO SCH (20:06)
[2021-01-07] MEDS: Ipratropium Neb 0.5 MG NEBULIZER IH SCH ×4 (03:26→22:29)
[2021-01-07] MEDS: Levalbuterol Neb 0.63 MG/3 ML IH SCH (03:26)
[2021-01-07] MEDS: *HR* Heparin 5,000 UNIT/ML VIAL SQ SCH ×3 (04:21→20:43)
[2021-01-07] MEDS: Piperacillin/Tazobactam 3.375 GM in 0.9 % Sodium Chloride Mini Bag 100 ML IVPB SCH ×3 (04:22→20:42)
[2021-01-07] MEDS: MethylPREDNISolone 40 MG/ML VIAL IVP SCH ×2 (04:22→18:20)
[2021-01-07] MEDS ORDERED: Furosemide 40 MG/4 ML VIAL IVP STA (04:38)
[2021-01-07] MEDS: Levalbuterol Neb 1.25 MG/3 ML IH SCH ×4 (06:53→22:29)
[2021-01-07 09:18] LABS: Basophils % 0.1 %; Hematocrit 39.2 % (35.3-44.9); Immature Granulocytes % 1.9 % (0-4); Lymphocytes # 0.9 K/mcL (0.6-4.6); Lymphocytes % 2.8 %; Mean Corpuscular HGB Conc 29.6 g/dL (31.6-35.5); Mean Corpuscular Hemoglobin 27.3 pg (28.0-33.3); Mean Corpuscular Volume 92.2 fL (83.0-100.0); Mean Platelet Volume 11.4 fL (9.4-12.4); Monocytes # 1.1 K/mcL (0.0-1.3); Monocytes % 3.6 %; Neutrophils # 29.1 K/mcL (1.6-8.9); Nucleated Red Blood Cells 0.1 /100 WBC (0); Platelet Count 296 K/mcL (140-400); Red Blood Count 4.25 M/mcL (3.82-4.97); Red Cell Distribution Width 17.7 % (11.5-14.5); Segmented Neutrophils % 91.6 %
[2021-01-07 09:19] LABS: Hemoglobin 11.6 g/dL (11.5-15.4)
[2021-01-07 09:21] LABS: White Blood Count 31.8 K/mcL (4.3-11.1)
[2021-01-07] MEDS: Famotidine 20 MG TABLET PO SCH ×2 (09:23→20:44)
[2021-01-07] MEDS: Fluticasone Propionate Nasal 50 MCG/SPRAY BOTTLE NS SCH ×2 (09:23→20:44)
[2021-01-07] MEDS: allopurinoL 300 MG TABLET PO SCH (09:24)
[2021-01-07] MEDS: *HR* Digoxin 0.125 MG TABLET PO SCH (09:24)
[2021-01-07] MEDS: BuPROPion XL (24 HR) 150 MG TABLET PO SCH ×2 (09:24→20:43)
[2021-01-07] MEDS: Furosemide 20 MG/2 ML VIAL IVP SCH (09:25)
[2021-01-07] MEDS: polyethylene glycoL 3350 17 GM POWD.PACK PO SCH (09:25)
[2021-01-07] MEDS: Metoprolol XL (24 HR) Succ 50 MG TAB.ER.24H PO SCH ×2 (09:25→20:44)
[2021-01-07] MEDS: Nystatin POWDER 30 GM BOTTLE TP SCH ×3 (09:25→20:45)
[2021-01-07 09:37] LABS: Albumin 3.1 g/dL (3.5-5.7); Albumin/Globulin Ratio 0.9 (1.1-2.2); Bilirubin,Total 0.3 mg/dL (0.3-1.0); Calcium 10.1 mg/dL (8.6-10.3); Globulin 3.6 g/dL (2.4-3.5); Potassium 4.4 mEq/L (3.5-5.1); Total Protein 6.7 g/dL (6.4-8.9)
[2021-01-07 09:38] LABS: Platelet Estimate Normal (Normal)
[2021-01-07] MEDS ORDERED: Alteplase (Activase) 100 MG/100 ML VIAL IX ONE (10:36)
[2021-01-07] MEDS ORDERED: SODIUM CHLORIDE 0.9% IX ONE (11:00)
[2021-01-07] MEDS ORDERED: ALTEPLASE IX ONE (11:00)
[2021-01-07] MEDS: Vancomycin 1,500 MG/265 ML IV.SOLN IVPB SCH (18:21)
[2021-01-07] MEDS: Gabapentin 400 MG CAPSULE PO SCH (20:43)
[2021-01-07] MEDS: traZODone 50 MG TABLET PO SCH (20:43)
[2021-01-07] MEDS: tiZANidine 4 MG TABLET PO SCH (20:43)
[2021-01-07] MEDS: Mirtazapine 15 MG TABLET PO SCH (20:43)
[2021-01-07] MEDS: Melatonin 3 MG TABLET PO SCH (20:44)
[2021-01-08 02:03] LABS: Basophils % 0.2 %; Monocytes % 3.1 %
[2021-01-08 02:04] LABS: Basophils # 0.1 K/mcL (0.0-0.2); Hematocrit 35.9 % (35.3-44.9); Hemoglobin 10.8 g/dL (11.5-15.4); Immature Granulocytes % 1.7 % (0-4); Lymphocytes # 0.9 K/mcL (0.6-4.6); Lymphocytes % 3.2 %; Mean Corpuscular HGB Conc 30.1 g/dL (31.6-35.5); Mean Corpuscular Hemoglobin 27.2 pg (28.0-33.3); Mean Corpuscular Volume 90.4 fL (83.0-100.0); Mean Platelet Volume 11.5 fL (9.4-12.4); Monocytes # 0.9 K/mcL (0.0-1.3); Neutrophils # 26.2 K/mcL (1.6-8.9); Platelet Count 277 K/mcL (140-400); Red Blood Count 3.97 M/mcL (3.82-4.97); Red Cell Distribution Width 17.6 % (11.5-14.5); Segmented Neutrophils % 91.8 %; White Blood Count 28.5 K/mcL (4.3-11.1)
[2021-01-08 02:21] LABS: Albumin 2.7 g/dL (3.5-5.7); Albumin/Globulin Ratio 0.8 (1.1-2.2); Bilirubin,Total 0.3 mg/dL (0.3-1.0); Calcium 9.5 mg/dL (8.6-10.3); Globulin 3.2 g/dL (2.4-3.5); Potassium 4.8 mEq/L (3.5-5.1); Total Protein 5.9 g/dL (6.4-8.9)
[2021-01-08 02:22] LABS: Anisocytosis 1+ (Not Present); Platelet Estimate Normal (Normal)
[2021-01-08] MEDS: Levalbuterol Neb 1.25 MG/3 ML IH SCH ×4 (04:00→21:46)
[2021-01-08] MEDS: Ipratropium Neb 0.5 MG NEBULIZER IH SCH ×4 (04:00→21:46)
[2021-01-08] MEDS: MethylPREDNISolone 40 MG/ML VIAL IVP SCH ×2 (05:38→17:08)
[2021-01-08] MEDS: Piperacillin/Tazobactam 3.375 GM in 0.9 % Sodium Chloride Mini Bag 100 ML IVPB SCH ×2 (05:39→15:20)
[2021-01-08] MEDS: *HR* Heparin 5,000 UNIT/ML VIAL SQ SCH ×3 (05:39→21:34)
[2021-01-08] MEDS: Fluticasone Propionate Nasal 50 MCG/SPRAY BOTTLE NS SCH ×2 (09:03→21:33)
[2021-01-08] MEDS: polyethylene glycoL 3350 17 GM POWD.PACK PO SCH (09:03)
[2021-01-08] MEDS: allopurinoL 300 MG TABLET PO SCH (09:04)
[2021-01-08] MEDS: Furosemide 20 MG/2 ML VIAL IVP SCH (09:04)
[2021-01-08] MEDS: Metoprolol XL (24 HR) Succ 50 MG TAB.ER.24H PO SCH ×2 (09:04→21:33)
[2021-01-08] MEDS: Famotidine 20 MG TABLET PO SCH ×2 (09:05→21:31)
[2021-01-08] MEDS: BuPROPion XL (24 HR) 150 MG TABLET PO SCH ×2 (09:05→21:32)
[2021-01-08] MEDS: *HR* Digoxin 0.125 MG TABLET PO SCH (09:05)
[2021-01-08] MEDS: Nystatin POWDER 30 GM BOTTLE TP SCH ×3 (09:05→21:34)
[2021-01-08] MEDS: DilTIAZem SR (12hr) 60 MG CAP.ER.12H PO SCH ×2 (15:17→21:32)
[2021-01-08] MEDS: Vancomycin 1,500 MG/265 ML IV.SOLN IVPB SCH (17:08)
[2021-01-08] MEDS: Melatonin 3 MG TABLET PO SCH (21:32)
[2021-01-08] MEDS: Gabapentin 400 MG CAPSULE PO SCH (21:32)
[2021-01-08] MEDS: tiZANidine 4 MG TABLET PO SCH (21:32)
[2021-01-08] MEDS: traZODone 50 MG TABLET PO SCH (21:32)
[2021-01-08] MEDS: Mirtazapine 15 MG TABLET PO SCH (21:33)
[2021-01-08] MEDS: *HR* HYDROcodone/Acet 7.5/325 mg TABLET PO PRN (21:33)
[2021-01-09 01:43] LABS: Basophils % 0.3 %; Monocytes % 5.8 %; Nucleated Red Blood Cells 0.1 /100 WBC (0); Red Cell Distribution Width 17.7 % (11.5-14.5); Segmented Neutrophils % 87.6 %
[2021-01-09 01:45] LABS: Basophils # 0.1 K/mcL (0.0-0.2); Eosinophils # 0.2 K/mcL (0.0-0.6); Eosinophils % 0.5 %; Hemoglobin 11.2 g/dL (11.5-15.4); Immature Granulocytes % 2.7 % (0-4); Lymphocytes # 1.2 K/mcL (0.6-4.6); Lymphocytes % 3.1 %; Mean Corpuscular HGB Conc 30.3 g/dL (31.6-35.5); Mean Corpuscular Hemoglobin 27.5 pg (28.0-33.3); Mean Corpuscular Volume 90.9 fL (83.0-100.0); Mean Platelet Volume 11.5 fL (9.4-12.4); Monocytes # 2.2 K/mcL (0.0-1.3); Neutrophils # 32.4 K/mcL (1.6-8.9); Platelet Count 307 K/mcL (140-400); Red Blood Count 4.07 M/mcL (3.82-4.97)
[2021-01-09 02:01] LABS: Albumin 2.9 g/dL (3.5-5.7); Bilirubin,Total 0.3 mg/dL (0.3-1.0); Calcium 9.8 mg/dL (8.6-10.3); Potassium 4.4 mEq/L (3.5-5.1); Total Protein 5.9 g/dL (6.4-8.9)
[2021-01-09 02:47] LABS: Platelet Estimate Normal (Normal)
[2021-01-09] MEDS: Ipratropium Neb 0.5 MG NEBULIZER IH SCH ×4 (03:46→23:18)
[2021-01-09] MEDS: Levalbuterol Neb 1.25 MG/3 ML IH SCH ×4 (03:46→23:18)
[2021-01-09] MEDS: *HR* Heparin 5,000 UNIT/ML VIAL SQ SCH ×3 (05:12→20:24)
[2021-01-09] MEDS: MethylPREDNISolone 40 MG/ML VIAL IVP SCH ×2 (05:12→09:53)
[2021-01-09] MEDS: Nystatin POWDER 30 GM BOTTLE TP SCH ×3 (09:52→20:23)
[2021-01-09] MEDS: Fluticasone Propionate Nasal 50 MCG/SPRAY BOTTLE NS SCH ×2 (09:56→20:23)
[2021-01-09] MEDS: Furosemide 20 MG/2 ML VIAL IVP SCH (09:56)
[2021-01-09] MEDS: DilTIAZem SR (12hr) 90 MG CAP.ER.12H PO SCH ×2 (10:29→20:23)
[2021-01-09] MEDS: polyethylene glycoL 3350 17 GM POWD.PACK PO SCH (10:30)
[2021-01-09] MEDS: *HR* Digoxin 0.125 MG TABLET PO SCH (10:30)
[2021-01-09] MEDS: Famotidine 20 MG TABLET PO SCH ×2 (10:31→20:22)
[2021-01-09] MEDS: BuPROPion XL (24 HR) 150 MG TABLET PO SCH ×2 (10:31→20:22)
[2021-01-09] MEDS: Metoprolol XL (24 HR) Succ 50 MG TAB.ER.24H PO SCH ×2 (10:31→20:22)
[2021-01-09] MEDS: allopurinoL 300 MG TABLET PO SCH (10:31)
[2021-01-09] MEDS: DilTIAZem 50 MG/50 ML IV.SOLN IVC SCH ×2 (11:16→19:39)
[2021-01-09 12:14] LABS: ABG Base Excess 4 mEq/L (-2 to 3); ABG HCO3 30 mEq/L (21-27); ABG Oxygen Saturation 92 % (95-98); ABG PCO2 47 mmHg (35-45); ABG PH 7.41 pH Units (7.32-7.45); ABG PO2 63 mmHg (85-104); ABG TCO2 31 mEq/L (20-26)
[2021-01-09] MEDS ORDERED: *HR* Metoprolol 5 MG/5 ML VIAL IVP ONE (12:37)
[2021-01-09] MEDS ORDERED: DilTIAZem SR (12hr) 90 MG CAP.ER.12H PO ONE (16:39)
[2021-01-09] MEDS ORDERED: *HR* Digoxin 0.125 MG TABLET PO ONE (16:45)
[2021-01-09] MEDS ORDERED: Metoprolol XL (24 HR) Succ 50 MG TAB.ER.24H PO ONE (16:45)
[2021-01-09] MEDS: Vancomycin 1,250 MG/262.5 ML IV.SOLN IVPB SCH (17:29)
[2021-01-09] MEDS: traZODone 50 MG TABLET PO SCH (20:22)
[2021-01-09] MEDS: Melatonin 3 MG TABLET PO SCH (20:22)
[2021-01-09] MEDS: Mirtazapine 15 MG TABLET PO SCH (20:22)
[2021-01-09] MEDS: tiZANidine 4 MG TABLET PO SCH (20:22)
[2021-01-09] MEDS: Gabapentin 400 MG CAPSULE PO SCH (20:22)
[2021-01-09] MEDS: Acetaminophen 325 MG TABLET PO PRN (20:23)
[2021-01-10 02:34] LABS: Red Cell Distribution Width 17.9 % (11.5-14.5)
[2021-01-10 02:36] LABS: Basophils # 0.1 K/mcL (0.0-0.2); Basophils % 0.2 %; Eosinophils # 0.1 K/mcL (0.0-0.6); Eosinophils % 0.2 %; Hematocrit 37.1 % (35.3-44.9); Hemoglobin 11.1 g/dL (11.5-15.4); Immature Granulocytes % 2.5 % (0-4); Lymphocytes # 0.8 K/mcL (0.6-4.6); Lymphocytes % 2.2 %; Mean Corpuscular HGB Conc 29.9 g/dL (31.6-35.5); Mean Corpuscular Hemoglobin 27.3 pg (28.0-33.3); Mean Corpuscular Volume 91.2 fL (83.0-100.0); Mean Platelet Volume 11.2 fL (9.4-12.4); Monocytes # 1.1 K/mcL (0.0-1.3); Neutrophils # 33.6 K/mcL (1.6-8.9); Nucleated Red Blood Cells 0.1 /100 WBC (0); Platelet Count 266 K/mcL (140-400); Red Blood Count 4.07 M/mcL (3.82-4.97); Segmented Neutrophils % 91.9 %
[2021-01-10 02:47] LABS: White Blood Count 36.6 K/mcL (4.3-11.1)
[2021-01-10 03:01] LABS: Alanine Aminotransferase 28 Units/L (7-52); Albumin 2.7 g/dL (3.5-5.7); Albumin/Globulin Ratio 0.9 (1.1-2.2); Alkaline Phosphatase 75 Units/L (34-104); Aspartate Amino Transferase 14 Units/L (13-39); BUN/Creatinine Ratio 52 (6-26); Bilirubin,Total 0.3 mg/dL (0.3-1.0); Blood Urea Nitrogen 52 mg/dL (8-23); Calcium 9.5 mg/dL (8.6-10.3); Carbon Dioxide 27 mEq/L (23-29); Chloride 103 mEq/L (98-107); Globulin 3.1 g/dL (2.4-3.5); Glucose 144 mg/dL (70-105); Osmolality,Calculated 309 (280-300); Potassium 4.7 mEq/L (3.5-5.1); Sodium 141 mEq/L (136-145); Total Protein 5.8 g/dL (6.4-8.9); eGFR For African Americans > 60 (> 60); eGFR For Non-African Americans 52 (> 60)
[2021-01-10] MEDS: Ipratropium Neb 0.5 MG NEBULIZER IH SCH ×4 (03:41→21:16)
[2021-01-10] MEDS: Levalbuterol Neb 1.25 MG/3 ML IH SCH ×4 (03:41→21:16)
[2021-01-10] MEDS: DilTIAZem 50 MG/50 ML IV.SOLN IVC SCH (05:26)
[2021-01-10] MEDS: *HR* Heparin 5,000 UNIT/ML VIAL SQ SCH ×3 (05:27→21:38)
[2021-01-10] MEDS: MethylPREDNISolone 40 MG/ML VIAL IVP SCH (08:17)
[2021-01-10] MEDS: DilTIAZem SR (12hr) 90 MG CAP.ER.12H PO SCH ×2 (08:55→12:08)
[2021-01-10] MEDS: *HR* Digoxin 0.125 MG TABLET PO SCH (08:55)
[2021-01-10] MEDS: BuPROPion XL (24 HR) 150 MG TABLET PO SCH ×3 (08:56→21:37)
[2021-01-10] MEDS: Famotidine 20 MG TABLET PO SCH ×2 (08:56→10:49)
[2021-01-10] MEDS: polyethylene glycoL 3350 17 GM POWD.PACK PO SCH ×2 (08:56→11:44)
[2021-01-10] MEDS: Metoprolol XL (24 HR) Succ 50 MG TAB.ER.24H PO SCH ×3 (08:56→21:38)
[2021-01-10] MEDS: allopurinoL 300 MG TABLET PO SCH ×2 (08:56→10:36)
[2021-01-10] MEDS ORDERED: Amiodarone Premix 360 MG/200 ML BAG IVC ONE (10:13)
[2021-01-10] MEDS ORDERED: Amiodarone Premix 150 MG/100 ML BAG IVPB ONE (10:13)
[2021-01-10] MEDS: Nystatin POWDER 30 GM BOTTLE TP SCH ×3 (11:15→21:42)
[2021-01-10] MEDS: Fluticasone Propionate Nasal 50 MCG/SPRAY BOTTLE NS SCH ×2 (11:15→21:42)
[2021-01-10] MEDS: *HR* Metoprolol 5 MG/5 ML VIAL IVP SCH (15:36)
[2021-01-10] MEDS: *HR* HYDROcodone/Acet 7.5/325 mg TABLET PO PRN (15:37)
[2021-01-10] MEDS ORDERED: Amiodarone Premix 360 MG/200 ML BAG IVC SCH (16:13)
[2021-01-10] MEDS: Acetaminophen 325 MG TABLET PO PRN (18:38)
[2021-01-10] MEDS: Vancomycin 1,250 MG/262.5 ML IV.SOLN IVPB SCH (18:42)
[2021-01-10] MEDS ORDERED: DilTIAZem SR (12hr) 60 MG CAP.ER.12H PO SCH (21:00)
[2021-01-10] MEDS: traZODone 50 MG TABLET PO SCH (21:37)
[2021-01-10] MEDS: Melatonin 3 MG TABLET PO SCH (21:37)
[2021-01-10] MEDS: Gabapentin 400 MG CAPSULE PO SCH (21:38)
[2021-01-10] MEDS: tiZANidine 4 MG TABLET PO SCH (21:38)
[2021-01-10] MEDS: Mirtazapine 15 MG TABLET PO SCH (21:38)
[2021-01-11] MEDS: *HR* Metoprolol 5 MG/5 ML VIAL IVP SCH ×4 (00:05→23:48)
[2021-01-11 03:13] LABS: Basophils % 0.3 %; Eosinophils % 0.1 %; Lymphocytes % 2.3 %; Mean Platelet Volume 11.8 fL (9.4-12.4)
[2021-01-11 03:15] LABS: Basophils # 0.1 K/mcL (0.0-0.2); Hematocrit 35.8 % (35.3-44.9); Hemoglobin 10.7 g/dL (11.5-15.4); Immature Granulocytes % 3.2 % (0-4); Lymphocytes # 0.9 K/mcL (0.6-4.6); Mean Corpuscular HGB Conc 29.9 g/dL (31.6-35.5); Mean Corpuscular Hemoglobin 27.5 pg (28.0-33.3); Monocytes # 1.7 K/mcL (0.0-1.3); Monocytes % 4.3 %; Neutrophils # 35.7 K/mcL (1.6-8.9); Platelet Count 261 K/mcL (140-400); Red Blood Count 3.89 M/mcL (3.82-4.97); Red Cell Distribution Width 18.1 % (11.5-14.5); Segmented Neutrophils % 89.8 %
[2021-01-11] MEDS: Levalbuterol Neb 1.25 MG/3 ML IH SCH ×4 (03:24→22:00)
[2021-01-11] MEDS: Ipratropium Neb 0.5 MG NEBULIZER IH SCH ×4 (03:24→22:00)
[2021-01-11 03:41] LABS: White Blood Count 39.7 K/mcL (4.3-11.1)
[2021-01-11 03:43] LABS: BUN/Creatinine Ratio 56 (6-26); Blood Urea Nitrogen 57 mg/dL (8-23); Calcium 9.4 mg/dL (8.6-10.3); Carbon Dioxide 29 mEq/L (23-29); Chloride 101 mEq/L (98-107); Glucose 126 mg/dL (70-105); Osmolality,Calculated 307 (280-300); Potassium 5.1 mEq/L (3.5-5.1); Sodium 140 mEq/L (136-145); eGFR For African Americans > 60 (> 60); eGFR For Non-African Americans 51 (> 60)
[2021-01-11] MEDS: *HR* Heparin 5,000 UNIT/ML VIAL SQ SCH ×3 (05:27→21:16)
[2021-01-11] MEDS: BuPROPion XL (24 HR) 150 MG TABLET PO SCH ×2 (08:04→21:15)
[2021-01-11] MEDS: allopurinoL 300 MG TABLET PO SCH (08:04)
[2021-01-11] MEDS: Metoprolol XL (24 HR) Succ 50 MG TAB.ER.24H PO SCH ×2 (08:05→21:15)
[2021-01-11] MEDS: polyethylene glycoL 3350 17 GM POWD.PACK PO SCH (08:05)
[2021-01-11] MEDS: *HR* HYDROcodone/Acet 7.5/325 mg TABLET PO PRN ×2 (08:06→17:11)
[2021-01-11] MEDS: Furosemide 20 MG/2 ML VIAL IVP SCH (08:06)
[2021-01-11] MEDS: Famotidine 20 MG TABLET PO SCH (08:06)
[2021-01-11] MEDS: Fluticasone Propionate Nasal 50 MCG/SPRAY BOTTLE NS SCH ×2 (08:10→21:15)
[2021-01-11] MEDS: Nystatin POWDER 30 GM BOTTLE TP SCH ×3 (08:14→21:16)
[2021-01-11] MEDS ORDERED: MethylPREDNISolone 40 MG/ML VIAL IVP SCH (09:00)
[2021-01-11] MEDS ORDERED: ALTEPLASE IX ONE (11:15)
[2021-01-11] MEDS ORDERED: SODIUM CHLORIDE 0.9% IX ONE (11:15)
[2021-01-11] MEDS: Vancomycin 1,250 MG/262.5 ML IV.SOLN IVPB SCH (19:20)
[2021-01-11] MEDS: traZODone 50 MG TABLET PO SCH (21:14)
[2021-01-11] MEDS: Melatonin 3 MG TABLET PO SCH (21:15)
[2021-01-11] MEDS: Gabapentin 400 MG CAPSULE PO SCH (21:15)
[2021-01-11] MEDS: Mirtazapine 15 MG TABLET PO SCH (21:15)
[2021-01-11] MEDS: tiZANidine 4 MG TABLET PO SCH (21:15)
[2021-01-12] MEDS: Ipratropium Neb 0.5 MG NEBULIZER IH SCH ×3 (03:42→16:29)
[2021-01-12] MEDS: Levalbuterol Neb 1.25 MG/3 ML IH SCH ×3 (03:42→16:29)
[2021-01-12] MEDS: *HR* Heparin 5,000 UNIT/ML VIAL SQ SCH ×2 (05:21→13:43)
[2021-01-12] MEDS: *HR* Metoprolol 5 MG/5 ML VIAL IVP SCH ×2 (08:20→15:40)
[2021-01-12] MEDS: allopurinoL 300 MG TABLET PO SCH (08:20)
[2021-01-12] MEDS: BuPROPion XL (24 HR) 150 MG TABLET PO SCH (08:20)
[2021-01-12] MEDS: polyethylene glycoL 3350 17 GM POWD.PACK PO SCH (08:21)
[2021-01-12] MEDS: Nystatin POWDER 30 GM BOTTLE TP SCH ×2 (08:21→15:41)
[2021-01-12] MEDS: Furosemide 20 MG/2 ML VIAL IVP SCH (08:21)
[2021-01-12] MEDS: Famotidine 20 MG TABLET PO SCH (08:21)
[2021-01-12] MEDS: Metoprolol XL (24 HR) Succ 50 MG TAB.ER.24H PO SCH (08:21)
[2021-01-12] MEDS: Fluticasone Propionate Nasal 50 MCG/SPRAY BOTTLE NS SCH (08:25)
[2021-01-12 08:54] LABS: Hematocrit 42.8 % (35.3-44.9); Hemoglobin 12.4 g/dL (11.5-15.4); Mean Corpuscular Hemoglobin 27.4 pg (28.0-33.3); Mean Corpuscular Volume 94.5 fL (83.0-100.0); Mean Platelet Volume 12.3 fL (9.4-12.4); Platelet Count 201 K/mcL (140-400); Red Blood Count 4.53 M/mcL (3.82-4.97); Red Cell Distribution Width 18.6 % (11.5-14.5)
[2021-01-12] MEDS ORDERED: predniSONE 20 MG TABLET PO SCH (09:00)
[2021-01-12 09:06] LABS: White Blood Count 47.1 K/mcL (4.3-11.1)
[2021-01-12 10:13] LABS: Anisocytosis 1+ (Not Present); Lymphocytes # 1.4 K/mcL (0.6-4.6); Monocytes # 2.4 K/mcL (0.0-1.3); Neutrophils # 41.9 K/mcL (1.6-8.9); Platelet Estimate Normal (Normal)
[2021-01-12 11:10] VITALS: BP 124/78
[2021-01-12] MEDS ORDERED: *HR* Digoxin 0.5 MG/2 ML AMPUL IVP ONE (11:14)
[2021-01-12 11:52] LABS: Hematocrit 39.9 % (35.3-44.9); Hemoglobin 11.9 g/dL (11.5-15.4); Lymphocytes # 0.9 K/mcL (0.6-4.6); Mean Corpuscular HGB Conc 29.8 g/dL (31.6-35.5); Mean Corpuscular Hemoglobin 27.9 pg (28.0-33.3); Mean Corpuscular Volume 93.4 fL (83.0-100.0); Mean Platelet Volume 11.9 fL (9.4-12.4); Platelet Count 241 K/mcL (140-400); Red Blood Count 4.27 M/mcL (3.82-4.97); Red Cell Distribution Width 18.3 % (11.5-14.5)
[2021-01-12 12:00] LABS: White Blood Count 44.8 K/mcL (4.3-11.1)
[2021-01-12 12:11] LABS: Alanine Aminotransferase 38 Units/L (7-52); Albumin/Globulin Ratio 1.1 (1.1-2.2); Alkaline Phosphatase 84 Units/L (34-104); Aspartate Amino Transferase 17 Units/L (13-39); BUN/Creatinine Ratio 58 (6-26); Bilirubin,Total 0.3 mg/dL (0.3-1.0); Blood Urea Nitrogen 56 mg/dL (8-23); Calcium 9.4 mg/dL (8.6-10.3); Carbon Dioxide 29 mEq/L (23-29); Chloride 102 mEq/L (98-107); Globulin 2.8 g/dL (2.4-3.5); Glucose 153 mg/dL (70-105); Osmolality,Calculated 303 (280-300); Sodium 137 mEq/L (136-145); Total Protein 5.8 g/dL (6.4-8.9); eGFR For African Americans > 60 (> 60); eGFR For Non-African Americans 55 (> 60)
[2021-01-12 12:29] LABS: Anisocytosis 1+ (Not Present); Eosinophils # 1.8 K/mcL (0.0-0.6); Monocytes # 1.3 K/mcL (0.0-1.3); Neutrophils # 39.9 K/mcL (1.6-8.9)
[2021-01-12 12:31] LABS: Platelet Estimate Normal (Normal); Toxic Granulation Present (Not Present)
[2021-01-12] MEDS ORDERED: *HR* Digoxin 0.5 MG/2 ML AMPUL IVP SCH (18:15)
== END 2021-01-12 16:46 | disposition hospice, inpatient (51) | DRG 871 ==
LOC: EMEROOARM 09:25 → 2NENU 09:25 → SUATTDRO 13:18 → 2NENU 14:33 → SUATTDRO 22:23
PROVIDERS: ADMIT Pharmacist; ATTEND Internal Medicine

== ENCOUNTER 2021-01-12 14:49 | Inpatient (IN) ==
[2021-01-12] MEDS ORDERED: Haloperidol Lactate 5 MG/ML VIAL IVP PRN (15:16)
[2021-01-12] MEDS ORDERED: Acetaminophen 325 MG TABLET PO PRN (15:22)
[2021-01-12] MEDS: *HR* LORazepam Oral Conc 2 MG/ML PO PRN ×2 (17:44→22:16)
[2021-01-12] MEDS: Morphine Sulfate Oral CONC 10 MG/0.5 ML ORAL.SYG SL PRN (18:22)
[2021-01-12] MEDS: tiZANidine 4 MG TABLET PO SCH (20:54)
[2021-01-12] MEDS: Metoprolol XL (24 HR) Succ 50 MG TAB.ER.24H PO SCH (20:55)
[2021-01-12] MEDS: BuPROPion XL (24 HR) 150 MG TABLET PO SCH (20:55)
[2021-01-12] MEDS: Melatonin 3 MG TABLET PO SCH (20:55)
[2021-01-12] MEDS: Gabapentin 400 MG CAPSULE PO SCH (20:55)
[2021-01-12] MEDS: traZODone 50 MG TABLET PO SCH (20:55)
[2021-01-12] MEDS: Ipratropium/Albuterol Neb 3 ML IH PRN (22:23)
[2021-01-13] MEDS: *HR* LORazepam Oral Conc 2 MG/ML PO PRN ×4 (03:26→22:09)
[2021-01-13] MEDS: Morphine Sulfate Oral CONC 10 MG/0.5 ML ORAL.SYG SL PRN ×5 (06:18→22:14)
[2021-01-13] MEDS: polyethylene glycoL 3350 17 GM POWD.PACK PO SCH ×2 (09:19→09:28)
[2021-01-13] MEDS: Metoprolol XL (24 HR) Succ 50 MG TAB.ER.24H PO SCH ×3 (09:19→20:06)
[2021-01-13] MEDS: BuPROPion XL (24 HR) 150 MG TABLET PO SCH ×3 (09:19→20:06)
[2021-01-13] MEDS: Melatonin 3 MG TABLET PO SCH (20:05)
[2021-01-13] MEDS: tiZANidine 4 MG TABLET PO SCH (20:06)
[2021-01-13] MEDS: traZODone 50 MG TABLET PO SCH (20:06)
[2021-01-13] MEDS: Gabapentin 400 MG CAPSULE PO SCH (20:06)
[2021-01-14] MEDS: Morphine Sulfate Oral CONC 10 MG/0.5 ML ORAL.SYG SL PRN ×7 (00:46→19:45)
[2021-01-14] MEDS: *HR* LORazepam Oral Conc 2 MG/ML PO PRN ×2 (04:05→10:19)
[2021-01-14] MEDS: polyethylene glycoL 3350 17 GM POWD.PACK PO SCH (07:18)
[2021-01-14] MEDS: BuPROPion XL (24 HR) 150 MG TABLET PO SCH (07:18)
[2021-01-14] MEDS: Metoprolol XL (24 HR) Succ 50 MG TAB.ER.24H PO SCH (07:18)
[2021-01-14] MEDS ORDERED: Acetaminophen 650 MG RECTAL SUPP RC PRN (10:12)
[2021-01-14] MEDS ORDERED: Morphine Sulfate Oral CONC 10 MG/0.5 ML ORAL.SYG SL PRN ×2 (10:13→13:11)
[2021-01-14] MEDS: Haloperidol Oral Conc 10 MG/5 ML UDC PO PRN ×3 (13:16→22:20)
[2021-01-14] MEDS: *HR* LORazepam Oral Conc 2 MG/ML SL PRN ×4 (13:18→21:20)
[2021-01-14] MEDS: Ipratropium/Albuterol Neb 3 ML IH PRN (13:25)
[2021-01-14 19:19] VITALS: BP 118/80
[2021-01-14] MEDS: Atropine 1% Opth Drops 100 DROP/5 ML BOTTLE SL PRN (22:24)
[2021-01-15] MEDS: Morphine Sulfate Oral CONC 10 MG/0.5 ML ORAL.SYG SL PRN ×2 (00:09→03:00)
[2021-01-15] MEDS: *HR* LORazepam Oral Conc 2 MG/ML SL PRN ×2 (00:34→04:14)
[2021-01-15] MEDS: Haloperidol Oral Conc 10 MG/5 ML UDC PO PRN (02:59)
[2021-01-15] MEDS: Atropine 1% Opth Drops 100 DROP/5 ML BOTTLE SL PRN (03:02)
== END 2021-01-15 04:37 | disposition expired | DRG 951 ==
LOC: 2ANU 17:13
PROVIDERS: ADMIT Internal Medicine Hospice and Palliative Medicine; ATTEND Internal Medicine Hospice and Palliative Medicine